=== PATIENT | female | born 1940 | race Caucasian/White ===

== ENCOUNTER 2023-12-01 06:34 | Day surgery (SDC) | payer OTHER, SELFPAY ==
[2023-12-01 10:50] VITALS: BP 151/78
[2023-12-01 11:21] VITALS: BMI 42.0
[2023-12-01 11:24] LABS: Glucose - Point of Care 100 mg/dl (70-99)
[2023-12-01 12:04] VITALS: BP 130/65
[2023-12-01 12:15] VITALS: BP 134/67
[2023-12-01 12:30] VITALS: BP 137/69
== END 2023-12-01 13:09 | disposition home or self-care (01) ==
LOC: GI 06:34
PROVIDERS: ATTENDING PHYSICIAN Internal Medicine Gastroenterology
DX: Q39.9 Congenital malformation of esophagus, unspecified (principal); K31.7 Polyp of stomach and duodenum; K31.89 Other diseases of stomach and duodenum; R12 Heartburn; R19.4 Change in bowel habit
CPT/HCPCS: 43239; 88305; 82962; 88342

== ENCOUNTER 2024-06-09 01:07 | Inpatient (IN) | payer OTHER, SELFPAY ==
[2024-06-08 15:33] VITALS: BP 118/82
[2024-06-08 16:06] LABS: % Basophils 0.3 % (0-2); % Eosinophils 3.8 % (0-6); % Immature Granulocytes 0.4 % (0-0.5); % Monocytes 9.5 % (1.7-9.3); Absolute Eosinophils 0.4 10^3/uL (0-0.7); Absolute Lymphocytes 2.3 10^3/uL (1.2-3.4); Absolute Neutrophils 6.3 10^3/uL (1.4-6.5); Hematocrit 32.8 % (37.0-47.0); Hemoglobin 10.6 g/dL (12.0-16.0); Mean Corp Hgb Conc. 32.3 g/dL (33.0-37.0); Mean Corpuscular Volume 89.6 fL (81.0-99.0); Mean Platelet Volume 9.7 fL (7.4-10.4); Nucleated Red Blood Cells % 0 %; Platelet Count 246 10^3/uL (130-400); Red Blood Cell Count 3.66 10^6/uL (4.20-5.40); Red Cell Dist. Width 15.4 % (11.5-14.5)
[2024-06-08 16:18] LABS: ALT (SGPT) 24 U/L (0-35); AST (SGOT) 28 U/L (14-36); Albumin 3.1 g/dl (3.5-5.0); Alkaline Phosphatase 108 U/L (38-126); Blood Urea Nitrogen 14 mg/dl (7-17); Calcium 9.6 mg/dl (8.4-10.2); Carbon Dioxide 30 mmol/L (22-30); Chloride 97 mmol/L (98-107); Glucose 110 mg/dl (70-99); Potassium 4.4 mmol/L (3.5-5.1); Sodium 132 mmol/L (135-145); Total Bilirubin 0.6 mg/dl (0.2-1.3); Total Protein 5.7 g/dl (6.3-8.2); eGFR > 60.00
[2024-06-08 16:26] LABS: COVID-19 Antigen Negative (Negative)
[2024-06-08 19:58] VITALS: BMI 43.2
[2024-06-08 20:01] VITALS: BP 120/69
[2024-06-08 21:00] VITALS: BP 103/44
--- NOTE | 2024-06-08 21:24 | ED.GENMED ---
History of Present Illness
General
Chief Complaint: Breathing Problem
Source: patient
Exam Limitations: none
Time Seen by Provider: 06/08/24 19:55
History of Present Illness
History of Present Illness:
This is a 84 year old female that comes in with c/o feeling like her throat is closing and SOB. States that this started 5 days ago. Sates that she went to see the PCP and he sent her to the ER. States that when she goes to sit up or move from the
chair to the Bed she is SOB. States that she is SOB, has a headache, feels lightheaded and has urinary burning. Denies any fever, chills, chest pain, abd pain, nausea, vomiting, diarrhea.
Past History
Past History
ED Past Medical History: Asthma, Fibromyalgia, GERD, HTN, Hypercholesterolemia, IDDM, Other (Migraines, Dizziness, Numbness in arms and legs, TIA, PNA, Bowel obstruction, GI bleeding, Hiatal hernia, IBS, Intussuseption, Ovarian cyst, Renal calculus,
UTI, ) and Other (Diverticulitis, SBO, Vertebral Fx. Stenosis, Chronic back pain, dizziness, diabetic neuropathy, edema, productive cough, constipation, diarrhea, irritable bowel, intussusception, ovarian cysts, kidney stones, stress incontinence,
anxiety, depression)
ED Past Surgical History: Appendectomy, Bowel resection (Small bowel resection), Cholecystectomy, Gynecological (Hysterectomy), Orthopedic (Back surgery lumbar spine in November 2009, Right elbow surgery, ORIF right ankle), Urological (Right ureteral
stent, ) and Other ( Parathyroid surgery, Cataracts, Adhesion)
Social History
Tobacco: Non-smoker
Alcohol: None
Drug: None
Personal:
Living: with family
Employment: Retired
Family History
Family History: Hypertension
Review of Systems
Review of Systems
All Other Systems: ROS reviewed and negative except as documented in HPI and ROS
Constitutional: Reports no symptoms; Denies fever or chills
EENT: Reports no symptoms
Respiratory: Reports cough and trouble breathing
Cardiac: Denies chest pain
ABD/GI: Denies abdominal pain, nausea, vomiting or diarrhea
: Reports dysuria; Denies frequency or urgency
Musculoskeletal: Reports no symptoms
Skin: Reports no symptoms
Neurological: Reports headache and other (Lightheaded); Denies dizzy
Psychiatric: Reports no symptoms
Phy Exam
General Physical Exam
General Presentation: no apparent distress
General age: appears stated age
General Skin: warm and dry
General Habitus: elderly
General Mental: alert
General Hydration: dry mucous membranes
ENT Exam
ENT Exam: TM's normal, pharynx normal and neck supple
Eye Exam
Eye Exam: EOMI
Cardiovascular Exam
Cardiovascular Exam: regular rate/rhythm and normal peripheral pulses
Pulmonary Exam
Pulmonary Exam: no respiratory distress, no rales, chest non tender, no crackles, no rhonchi, no wheezing, decreased breath sounds and other (Dry cough noted)
Gastrointestinal Exam
Gastrointestinal Exam: normal bowel sounds, non tender, soft, no organomegaly, no pulsatile mass and non distended
Musculoskeletal Exam
Musculoskeletal Exam: full ROM and edema (Lower legs +2 pitting)
Skin Exam
Skin Exam: normal color, warm/dry, no rash and no petechia
Psychiatric Exam
Psychiatric Exam: normal mood/affect
Scores
Heart Failure Risk
Heart Failure Risk Score: Not Applicable
Course
Orders/Labs/Results
Orders:
Orders
06/08/24 15:37
CR Chest - 2 Views Urgent
Comment:
Reason For Exam: shortness of breath, cough
06/08/24 15:39
ECG [Electrocardiogram (*1)] Urgent
Reason for Study: Shortness of Breath
EKG- Treatment ONCE
06/08/24 15:48
COVID-19 Antigen Urgent
Source: Nasal Swab
Complete Blood Count/With Diff Urgent
Comprehensive Metabolic Panel Urgent
Influenza A+B Rapid Molecular Urgent
MARIO Source: Nasal Swab
Specimen Description:
06/08/24 21:24
Ipratropium/Albuterol Sulfate [Duoneb] 3 ml INH R NOW ONE
06/08/24 22:43
0.9% Sodium Chloride 500 ml [Nss] 500 ml IV BOLUS
06/08/24 23:20
Straight cath- Treatment ONCE
Urinalysis Reflex To Culture Urgent
Date Specimen was Collected: 06/09/24
Time Specimen was Collected: 00:43
06/08/24 23:26
Add On- LAB Urgent
Tests Added?: Pro-BNP
06/08/24 23:58
NT-proBNP Urgent
Comment: ADDED
Troponin I Urgent
06/09/24 00:26
Admit/Transfer Patient As Directed
Co-Sign Provider:
Level of Care: Inpatient admission
Assign to:: Telemetry
Physician / Group: Vinicius
Diagnosis: Acute TME
Reason for Telemetry: Arrhythmia
Date to Stop Telemetry: 06/12/24
Time to Stop Telemetry: 11:00
Reason for Hospitalization: Acute TME
Expected length of stay greater than two midnights?: Yes
ELOS- Estimated Length of Stay in days: 3
I certify the patient meets the requirements for IP care: Yes
PRN Pain Medication Management As Directed
May give lesser potent ordered pain med per pt: Yes
preference::
Protocol:: Medication orders for pain may be administered in a
manner that supports deferring to patient preference
when the pt is:
- Requesting an ordered lesser potent pain medication.
Least to most potent pain medications are defined
as: acetaminophen < NSAID < tramadol < opioids
(morphine, oxycodone, hydromorphone).
- Requesting a lesser dose of the same medication IF
ORDERED.
- Requesting a less intrusive route of administration
if both routes are prescribed by the provider (PO <
IV).
06/09/24 00:30
Code Status As Directed
Resuscitation Status: Full Code
06/09/24 01:38
Acetaminophen [Tylenol] 650 mg PO Q4HPRN PRN
Albuterol Nebs [Ventolin Nebules] 2.5 mg INH R Q4HPRN PRN
Dextrose 50%-Water [Dextrose 50% Syringe] 12.5 grams IV [id number] PRN
Glucagon [GlucaGen] 1 mg IM PRN PRN
06/09/24 01:38
Echo 2D MMode Doppler [Echo 2D MMode Color/Doppler] Routine
Reason for Study: SOB, Edema
Consult Notification Routine
Specialty to Notify: Pulmonary
PULMONARY CONSULT Routine
Consulting Provider: Alexander Barlow
Was physician already notified: No
Reason for consult: SOB / COPD
B12 [Vitamin B12] Routine
TSH Reflex To Free T4 Routine
Activity As Directed
Activity Level: Ambulate
With Assistance
Bedside Glucose Monitoring As Directed
Frequency: AC&HS
Additional Instructions:: Change to q6h if pt on TPN, tube feeding or not eating
Bladder Scan As Directed
Follow Bladder Retention/Intermittent Cath Algorithm?: Yes
PRN if no void in __ hours: 6
Frequency: Per Retention Algorithm
If Bladder Scan Result >: 400
then:: Straight cath
EKG with chest pain [ECG as needed] As Directed
ECG as needed for:: Chest Pain
Hemetest Stools As Directed
I/O [Intake/ Output] As Directed
Frequency: Per unit guidelines
Precautions As Directed
Type of Precautions: Aspiration
Straight Cath As Directed
Frequency: Per Retention Algorithm
Additional Instructions: straight cath as needed per acute urinary retention algorithm for 24 hrs
Additional Instructions: for bladder scan greater than 400 mL
Vital Signs As Directed
Frequency: Per unit guidelines
Weight As Directed
Frequency: Daily
Incentive Spirometry [Rx Incentive Spirometry] [RESP] Routine
Frequency: q1h while awake
Oxygen Therapy [O2 Therapy] [RESP] Routine
Titrate/Wean O2 to maintain O2 sat greater than (%): 94
Ot Eval And Treat Routine
PT Consult [Pt Eval And Treat] Routine
Activity Level: Ambulate
With Assistance
Speech Therapy Eval & Treat Routine
06/09/24 03:14
Benzonatate [Tessalon Perles] 200 mg PO TID PRN
06/09/24 Breakfast
2000 calorie (17 carb) Diabetic
At Your Request: Limited Participation
Does patient need a safe tray?: No
Basic Metabolic Panel IN AM
Complete Blood Count/No Diff IN AM
Glycohemoglobin (HgbA1c) IN AM
06/09/24 07:30
Insulin Aspart Corrective Low [Novolog Flexpen-Low Resistance] See Protocol SC AC
06/09/24 08:00
Apixaban [Eliquis] 5 mg PO BID
Atorvastatin [Lipitor] 10 mg PO DAILY
Duloxetine Delayed Release [Cymbalta Delayed Release] 60 mg PO BID
Ipratropium/Albuterol Sulfate [Duoneb] 3 ml INH R QID
Metoprolol Xl [Toprol Xl] 25 mg PO DAILY
Pantoprazole [Protonix] 40 mg PO DAILY
Vit C/Vit E/L[place]in/Min/[place]-3 [Ocuvite Softgel] 1 cap PO BID
06/09/24 22:00
Famotidine [Pepcid] 40 mg PO HS
06/12/24 11:00
DC Protocol for Telemetry ONCE
Abnormal Lab Results
06/08/24
15:48
RBC 3.66 L 10^6/uL
(4.20-5.40)
Hgb 10.6 L g/dL
(12.0-16.0)
Hct 32.8 L %
(37.0-47.0)
MCHC 32.3 L g/dL
(33.0-37.0)
RDW 15.4 H %
(11.5-14.5)
Absolute Monos (auto) 1.0 H 10^3/uL
(0.1-0.6)
Monocytes % 9.5 H %
(1.7-9.3)
Sodium 132 L mmol/L
(135-145)
Chloride 97 L mmol/L
(98-107)
Glucose 110 H mg/dl
(70-99)
Total Protein 5.7 L g/dl
(6.3-8.2)
Albumin 3.1 L g/dl
(3.5-5.0)
06/08/24 15:48
06/08/24 15:48
H/H slightly, Glucose nonfasting. Total protein low, Albumin slightly low. COVID and Influenza negative. Urine negative for infection.
Vital Signs
Initial and Last Documented VS:
Initial Vital Signs
Pulse Resp BP Pulse Ox
111 20 118/82 94
06/08/24 15:33 06/08/24 15:33 06/08/24 15:33 06/08/24 15:33
Last Documented Vital Signs
Temp Pulse Resp BP Pulse Ox
98.2 F 103 20 131/99 97
06/09/24 02:13 06/09/24 02:13 06/09/24 02:13 06/09/24 02:13 06/09/24 02:13
MDM/Problems Addressed
Differential Diagnosis Includes:
PE, PNA, COVID
MDM/Problems Addressed:
This is a 84 year old female that comes in with c/o SOB. States that this started 5 days ago and know she is very SOB with going form the chair to bed.
Will get labs and Chest x-ray. If negative will get CT scan.
Unable to get CT scan as patient is allergic to IV contrast. Patient states that the Duo neb did not help. Will admit patient. Hospitalist notified.
Chronic conditions affecting care: Asthma
Acute Exacerbation and/or Progression of Chronic Illness: Asthma
*Radiology
Radiology exam reviewed: radiology read reviewed (Chest- There is mild elevation of the left hemidiaphragm with left greater than right bibasilar opacities fovored to represent chronic atelectasis/scarring. )
*Pulse Oximetry
Patient hypoxic: no
*EKG
Interpreted by ED Provider?: Yes
Heart Rate: 104
Rate: tachycardiac
Rhythm: sinus
[place]: left axis deviation
Interval: normal interval
QRS Pattern: normal QRS
Ischemia: no ischemia
*Institutional Commodity Analyst Interpretation
Rate: normal
Heart Rate: 97
Rhythm: sinus
*Critical Care Note
Total Time (30-74mins, 75-104mins- exclusive of procedures): Not Applicable
ED Attending Note
-
Portions of this chart may have been created with voice recognition software.� Occasional wrong word or��sound alike� substitutions may have occurred due to the inherent limitations of voice recognition software.
Discharge Plan
Departure
Patient Disposition: Admit
Date of Disposition: 06/08/24
Time of Disposition: 23:25
Admit to: Telemetry
Presentation/result/management discussed w/ accepting MD/DO: Hospitalist
Patient with high blood pressure during this ER visit?: No
Condition: Good
Covid-19: Negative COVID-19
Discharge Problem:
Shortness of breath
Interventions
Interventions:
*Risk Screen - Suicide Last Done: 06/08/24 15:37
*General Assessment Last Done: 06/08/24 19:59
*Neglect/Abuse Screening Last Done: 06/08/24 19:59
*ED COVID-19 Vaccine History Last Done: 06/08/24 19:59
*Nursing Disposition Last Done: 06/09/24 01:21
ED- Cardiac Assessment Last Done: 06/08/24 20:15
ED- Pulmonary Assessment Last Done: 06/08/24 20:15
Discharge Date and Time
Discharge Date/Time: 06/09/24 01:21
[2024-06-08] MEDS: DUONEB 3 ML INH (21:49)
[2024-06-08 22:00] VITALS: BP 123/62
[2024-06-08] MEDS: NSS 500 IV (23:00)
[2024-06-08 23:19] VITALS: BP 115/53
[2024-06-09] VITALS (12 sets, daily range): BP systolic 100–159; BP diastolic 57–99; PULSE 105–106; O2SAT 94–97; BMI 43.1; BMI 43.4
--- NOTE | 2024-06-09 00:32 | HPS.HSE ---
Family Physician
-
Family Physician: Akshat Schaefer, DO
Chief Complaint
-
Cough / SOB
History of Present Illness
Patient is an 84y F with PMH significant for COPD, chronic hypoxemia, DM-II, fibromyalgia and anxiety / depression who presents to ED for evaluation of cough, SOB and fatigue. History obtained from patient and her family at the bedside. Patient
was recently hospitalized at [facility] s/p fall. She was treated during that stay for LLE cellulitis, MANSOOR, etc and ultimately discharged to SNF. While at SNF, patient developed cough and SOB and was diagnosed / treated for pneumonia. She was discharged
to home on Tuesday. Since that time family has appreciated ongoing, hacking, non-productive cough. Patient has seemed weak / fatigued. She has difficulty with transfers - even with assistance. She uses a Hover-round for locomotion.
Last PM, daughter stayed with her parents and noted that the patient seemed to 'gasp for air' in her sleep repeatedly. She wears O2 chronically at 2lpm at all times. She does not use PAP therapy and notes that she had a normal PSG - though
this was some time ago.
She has had recent medication changes during her hospital and subsequent SNF stay - though family is not certain which meds specifically are new / different.
Today they took patient to see her PCP who advised that she present to the ED for evaluation.
At the time of my examination, patient is asleep. She is somewhat difficult to awaken - though she does answer questions and follow commands when she is awake.
Medical History
Past Medical History
Past Medical History: Reports Other
Additional Past Medical History:
DM-II
Fibromyalgia
GERD / PUD
Asthma / COPD
Chronic Hypoxemic Respiratory Failure
Hyperparathyroidism
Osteoporosis
Hypertension
OAB / Incontinence
Anxiety / Depression
History of PE
Morbid Obesity
Paroxysmal A-Fib
Past Surgical History: Reports Other
Additional Past Surgical History:
Hiatal Hernia repair / Fundoplication
Partial Small Bowel Resection
Cholecystectomy
Hysterectomy
Left Knee Arthroscopy
Bladder Lift
Interstim Implant
Social History
Tobacco: Non-smoker
Alcohol: None
Drug: None
Personal:
Living: With Family
Family History
Family History: Not pertinent
Allergies / Home Medications
Allergies reflects when Allergies were last updated in [email or web address].
Home Medications with original date entered in [email or web address]
Allergy/Medication List:
Allergies
Allergy/AdvReac Type Severity Reaction Status Date / Time
amoxicillin trihydrate Allergy Nausea / Verified 06/08/24 15:35
[From Augmentin] Vomiting
clarithromycin [From Biaxin] Allergy Nausea / Verified 06/08/24 15:35
Vomiting
clindamycin Allergy Nausea / Verified 06/08/24 15:35
Vomiting
diazepam Allergy HEADACHE Verified 06/08/24 15:35
fentanyl Allergy hallucinati Verified 06/08/24 15:35
on
hydromorphone HCl Allergy Itching Verified 06/08/24 15:35
[From Dilaudid]
Iodinated Contrast Media Allergy Tongue Verified 06/08/24 15:35
[IV Dye, Iodine Containing Swelling
Contrast ]
iodine [Iodine] Allergy Itchy Rash Verified 06/08/24 15:35
levofloxacin [From Levaquin] Allergy REDNESS Verified 06/08/24 15:35
AND
ITCHING AT
IV SITE
methylprednisolone Allergy HEADACHE Verified 06/08/24 15:35
[From Medrol]
morphine [Morphine] Allergy SEVERE Verified 06/08/24 15:35
ITCH,RED
RASH
potassium clavulanate Allergy Nausea / Verified 06/08/24 15:35
[From Augmentin] Vomiting
STEROIDS Allergy MIGRAINES Uncoded 06/08/24 15:35
Home Medications
jcjvl-[id number]-vcv-epa-fish oil 120 mg-180 mg-60 mg-1,200 mg capsule, DR (Fish Oil) 1,200 mg PO DAILY Supplement 07/07/15
pantoprazole 40 mg tablet,delayed release 40 mg PO DAILY gastric erosions 05/28/18
vitamins A,C,F-lilb-wsqtlf 4,296 mcg-226 mg-90 mg capsule (PreserVision AREDS) 1 cap PO BID Supplement 05/28/18
atorvastatin 10 mg tablet 10 mg PO DAILY High cholesterol 05/08/21
dicyclomine 10 mg capsule 10 mg PO BIDPRN PRN cramping 05/08/21
duloxetine 60 mg capsule,delayed release 60 mg PO BID DEPRESSION/PAIN 05/08/21
insulin aspart U-100 100 unit/mL (3 mL) subcutaneous pen (Novolog FlexPen U-100 Insulin aspart) 8 units SC AC Diabetes 05/08/21
albuterol sulfate 90 mcg/actuation aerosol inhaler (Ventolin HFA) 2 puff inhalation R Q6HPRN PRN SOB 08/12/22
montelukast 10 mg tablet 10 mg PO HS 08/12/22
nortriptyline 50 mg capsule 50 mg PO HS 08/12/22
benzonatate 200 mg capsule 200 mg PO TID 08/16/22
cholecalciferol (vitamin D3) 50 mcg (2,000 unit) tablet (Vitamin D3) 50 mcg PO DAILY 05/10/23
docusate sodium 100 mg capsule (Colace) 100 mg PO NOON 05/10/23
insulin degludec 100 unit/mL (3 mL) subcutaneous pen (Tresiba FlexTouch U-100 insulin) 15 unit SC HS 05/10/23
ramelteon 8 mg tablet 8 mg PO HS 05/10/23
apixaban 5 mg tablet (Eliquis) 5 mg PO BID 06/08/24
calcium carbonate (Calcium 600) 600 mg PO BID 06/08/24
famotidine 40 mg tablet 40 mg PO HS 06/08/24
fluticasone furoate 200 mcg/actuation blister powder for inhalation (Arnuity Ellipta) 1 inh inhalation R HS 06/08/24
fluticasone propionate 50 mcg/actuation nasal spray,suspension 1 spray intranasal HS 06/08/24
ipratropium 0.5 mg-albuterol 3 mg (2.5 mg base)/3 mL nebulization soln 3 ml inhalation R TIDPRN PRN sob 06/08/24
lidocaine 4 % topical cream 1 applic topical BID R knee 06/08/24
losartan 25 mg tablet 25 mg PO DAILY 06/08/24
metoprolol succinate 25 mg tablet,extended release 24 hr 25 mg PO DAILY 06/08/24
nystatin 100,000 unit/gram topical powder 1 applic topical BID abd folds, groin, chest 06/08/24
polyethylene glycol 3350 17 gram oral powder packet (Miralax) 17 g PO DAILYPRN PRN constipation 06/08/24
psyllium 1 packet PO DAILY 06/08/24
Review of Systems
-
History Source: Patient
A 12 point ROS was completed and negative except as noted: Yes
Constitutional: Reports Fatigue; Denies Fever or Chills
EENT: Denies Sore Throat or Runny Nose
Respiratory: Reports Cough and Trouble Breathing
Cardiac: Denies Chest Pain or Palpitations
Abdomen/GI: Denies Abdominal Pain, Nausea, Vomiting, Diarrhea or Constipated
: Reports Dysuria and Incontinence; Denies Frequency
Musculoskeletal: Reports Edema; Denies Joint Pain
Neurological: Denies Dizzy or Headache
Psych: Denies Depression or Anxiety
Physical Exam
Vital Signs
Vital Signs
Temp Pulse Resp BP Pulse Ox
98.6 F 99 19 115/53 100
06/08/24 20:01 06/08/24 23:19 06/08/24 23:19 06/08/24 23:19 06/08/24 23:19
Physical Exam
General: Other (84y F sleeping comfortably. Diffucult to awaken. Answers questions / follows commands when awake - falls quickly back to sleep.)
HEENT: Other (Thick neck, dry MM.)
Respiratory: Other (Diminished breath sounds throughout. No wheeze / rhonchi.)
Cardiac: S1/S2 and Regular Rhythm; No Murmur
GI: Soft, Non Tender, Non Distended and Normal Bowel Sounds
Musculoskeletal: No Clubbing, No Cyanosis and Other (2-3+ pitting edema to the knees bilaterally. )
Neuro: Other (Lethargic.)
Laboratory Results
-
06/08/24 15:48
06/08/24 15:48
Laboratory Results
Total Bilirubin 0.6 mg/dl (0.2-1.3) 06/08/24 15:48
AST 28 U/L (14-36) 06/08/24 15:48
ALT 24 U/L (0-35) 06/08/24 15:48
Alkaline Phosphatase 108 U/L (38-126) 06/08/24 15:48
Impression/Plan
-
A/P: Patient is an 84y F with PMH significant for COPD, chronic hypoxemia and chronic pain syndrome / fibromyalgia who presents to ED for evaluation of cough, dyspnea and fatigue.
Acute TME
- Admit for further evaluation and treatment.
- Patient somnolent / encephalopathic in the ED.
- With recent respiratory complaints, will check blood gasses for evidence of CO2 retention.
- notes that she has had 'issues with this in the past' - though she is not maintained on PAP therapy at home.
- Follow-up ABG results and begin BiPAP if indicated.
- Hold sedating meds - of which she has several.
- Check TFTs.
- Follow for clinical improvement.
SOB
COPD without Acute Exacerbation
Morbid Obesity due to excess calories
- Unclear etiology of dyspnea.
- Suspect component of hypoventilation / obesity / sedentary status.
- Decreased BS / poor effort. No other abnormal lung sounds.
- CXR likely represents atelectasis, and no other findings to suspect pneumonia, etc.
- Encourage IS.
- Nebs, O2 +/- BiPAP as noted above.
- Check Echo given LE edema to rule out new component of CHF.
- Pulmonary evaluation - followed by Dr. Rodriguez as an outpatient.
DM-II
- Stable. Continue basal : bolus insulin regimen.
- Follow glucose and cover with SSI as needed.
- Update A1C.
Fibromyalgia
Chronic Pain Syndrome
Anxiety / Depression
- Hold sedating meds as noted above.
- Monitor for any new / worsening pain or other symptoms.
GERD / PUD
- Stable. Continue acid suppression therapy.
- Heme test stools with new anemia (see below).
Normocytic Anemia
- Hgb = 10.6 which is decreased 2g from prior baseline.
- No evident source of blood loss.
- Check stools, iron studies, etc.
- Follow H&H for changes.
Paroxysmal Atrial Fibrillation
- This is a new diagnosis from her recent [facility] admission.
- Monitor on telemetry.
- Continue metoprolol with holding parameters.
- Continue Eliquis for stroke risk reduction.
DVT Prophylaxis: On Eliquis
Code Status: Full
[2024-06-09 00:35] LABS: NT-proBNP 219 pg/ml; Troponin I 0.015 ng/ml
[2024-06-09 01:07] LABS: Urine Albumin Negative (Neg - Trace); Urine Bilirubin Negative (Negative); Urine Character Clear (Clear); Urine Color Yellow; Urine Glucose Negative (Negative); Urine Ketone Negative (Negative); Urine Leukocyte Negative (Negative); Urine Nitrite Negative (Negative); Urine Occult Blood Negative (Negative); Urine Specific Gravity 1.015 (<1.030); Urine Urobilinogen Negative (Neg - 1+)
[2024-06-09 01:50] LABS: Glucose - Point of Care 141 mg/dl (70-99)
--- NOTE | 2024-06-09 02:44 | PTCARENOTE ---
Receive pt from ER. Pt alert oriented X2 (confused to month/year). Pt doesn't appear on any resp distress. Pt pulled over to bed from the stretcher. Pt oriented to the room, call montemayor within reach. Pt on NSR on telemonitor. VSS (T=98.2, PG=715,
RR=20, OH=692/99, SpO2=97% on 2L NC). Pt's blood hmbww=937. Pt denies pain, SOB, or chest pain. Pt drowsy, sleepy, but arousal to verbal stimuli and answers questions appropriately. Will continue to monitor the pt.
[2024-06-09 07:16] LABS: Venous Blood Gas B.E. 6.1 mmol/L (-4 to +4); Venous Blood Gas HCO3 32.8 mmol/L (22-27); Venous Blood Gas O2 Sat % 97.1 %; Venous Blood Gas pCO2 58 mmHg (35-48); Venous Blood Gas pH 7.36 (7.32-7.43); Venous Blood Gas pO2 107 mmHg (30-50)
[2024-06-09 07:25] LABS: Hematocrit 29.9 % (37.0-47.0); Hemoglobin 9.4 g/dL (12.0-16.0); Mean Corp Hgb Conc. 31.4 g/dL (33.0-37.0); Mean Corpuscular Hgb 28.4 pg (27.0-31.0); Mean Corpuscular Volume 90.3 fL (81.0-99.0); Platelet Count 222 10^3/uL (130-400); Red Blood Cell Count 3.31 10^6/uL (4.20-5.40); Red Cell Dist. Width 15.9 % (11.5-14.5)
[2024-06-09 07:50] LABS: Blood Urea Nitrogen 14 mg/dl (7-17); Carbon Dioxide 31 mmol/L (22-30); Chloride 98 mmol/L (98-107); Estimated Creatinine Clearance 77 ml/min; Glucose 118 mg/dl (70-99); Iron 49 ug/dl (37-170); Potassium 4.1 mmol/L (3.5-5.1); Sodium 136 mmol/L (135-145); eGFR > 60.00
[2024-06-09] MEDS: FLOVENT 110 MCG INHALER 2 PUFF INH ×2 (07:56→21:07)
[2024-06-09] MEDS: DUONEB 3 ML INH ×4 (07:56→21:12)
[2024-06-09 07:59] LABS: Percent Saturation 24 % (20-50); Total Iron Binding Capacity 200 ug/dl (265-497)
[2024-06-09 08:14] LABS: TSH Reflex To Free T4 1.26 uIU/ml (0.47-4.68)
[2024-06-09 08:25] LABS: Glucose - Point of Care 202 mg/dl (70-99)
[2024-06-09 08:33] LABS: Vitamin B12 902 pg/ml (239-931)
[2024-06-09 09:06] LABS: Glycohemoglobin (HgbA1c) 7.1 % (4.0-5.6)
[2024-06-09] MEDS: LIPITOR 10 MG PO (09:50)
[2024-06-09] MEDS: TOPROL XL 25 MG PO (09:50)
[2024-06-09] MEDS: ELIQUIS 5 MG PO ×2 (09:50→21:01)
[2024-06-09] MEDS: OCUVITE SOFTGEL 1 CAP PO ×2 (09:50→21:01)
[2024-06-09] MEDS: PROTONIX 40 MG PO (09:50)
[2024-06-09] MEDS: CYMBALTA DELAYED RELEASE 60 MG PO ×2 (09:50→21:00)
[2024-06-09] MEDS: NOVOLOG FLEXPEN-LOW RESISTANCE 2 UNITS SC (10:37)
--- NOTE | 2024-06-09 12:22 | PTOTSP ---
Speech Therapy Evaluation:
Pt's oropharyngeal swallow appears grossly WFL, however pt remains at an increased risk of aspiration given predisposing risk factors of asthma/COPD and chronic hypoxemic respiratory failure, compounded by current respiratory status with increased
cough/congestion. No s/sx of aspiration noted at bedside with regular solids or thin liquids. Pt also remains at an increased risk of post-prandial aspiration given esophageal hx of GERD and hiatal hernia.
Recommend:
1. Continue regular solids/thin liquids
2. Medications as tolerated
3. General aspiration /reflux precautions
4. Oral care 3x/daily
5. ST to follow- likely brief
[2024-06-09 12:46] LABS: Glucose - Point of Care 299 mg/dl (70-99)
--- NOTE | 2024-06-09 13:33 | W.PN.HOSP.TC ---
Today's Communication/Plan
-
see plan
Assessment / Plan
Assessment / Plan
84y F with PMH significant for COPD, chronic hypoxemia and chronic pain syndrome / fibromyalgia who presents to ED for evaluation of cough, dyspnea and fatigue.
Gen: NAD, awake and alert
Eyes: EOMI, PERRLA, no scleral icterus.
Neck: supple.
CV: RRR, +S1/S2, no m/r/g.
Resp: Very faint expiratory wheezes, slightly coarse breath sounds
Abd: +BS, soft, NT, ND
Skin: No rashes. 2+ B/L LE edema
Neuro: CN 2-12 intact, non-focal.
Psych: Normal mood and affect.
CXR: mild elevation of the left hemidiaphragm with left greater than right bibasilar opacities favored to represent chronic atelectasis/scarring.
Acute toxic metabolic encephalopathy:
-Patient was somnolent/encephalopathic in the ED.
-VBG 06/09/24AM 7.36/58/107
-hold all sedating meds
-currently saturating well on 2L NC O2
-TSH/B12 normals
SOB
-underlying COPD without Acute Exacerbation
-underlying morbid Obesity due to excess calories as well as sedentary lifestyle, very likely FAITH/OHS (suspect primary etiology)
-CXR without PNA
-Acapella, IS
-c/s pulm
-NC O2 support
-Check Echo given LE edema to rule out new component of CHF (unlikely with proBNP 219). Suspect edema is dependent and due to obesity.
Fibromyalgia
Chronic Pain Syndrome
Anxiety / Depression
- Hold sedating meds as noted above.
Normocytic Anemia
-Hb 9.4 from prior baseline 12s
-No evident source of blood loss
-Fe studies unremarkable aside from slightly low TIBC
-Hemetest stool
Other problems:
DM2: a1c 7.1%, cont Lantus/SSI/accuchecks
Paroxysmal Atrial Fibrillation: cont BB/Eliquis
GERD/PUD: cont PPI
FULL/Eliquis
Anticipated Discharge: 24 - 48 hours
Subjective/Interval History
-
Date of Service: June 09, 2024
Patient complains of cough.
Objective Data
-
Labs:
Laboratory Results
06/09/24 06/09/24
00:25 06:56
WBC 7.0
Hgb 9.4 L
Hct 29.9 L
Plt Count 222
HCO3 Cancelled
Sodium 136
Potassium 4.1
Chloride 98
Carbon Dioxide 31 H
BUN 14
Creatinine 0.6
Glucose 118 H
Calcium 9.0
Vital Signs:
Vital Signs
Temp Pulse Resp BP Pulse Ox
98.1 F 101 18 146/70 100
06/09/24 12:12 06/09/24 12:16 06/09/24 12:16 06/09/24 12:12 06/09/24 12:16
[2024-06-09] MEDS: TESSALON PERLES 200 MG PO (13:56)
[2024-06-09] MEDS: TYLENOL 650 MG PO ×2 (13:56→22:45)
[2024-06-09] MEDS: NOVOLOG FLEXPEN-LOW RESISTANCE 3 UNITS SC (13:58)
--- NOTE | 2024-06-09 14:39 | CM ---
CM following re: discharge planning.
Reviewed pt's chart, met with pt.
Pt is an 84 year old female admitted with primary dx of Acute TME.
Pt reports she lives alone in an independent apartment at [facility], has home O2, does not use any mobile devices. Pt reports she was at [facility] for a short term rehab, 2 weeks ago returned back home, did not have VN services. Pt
expressed her desire to return back to her independent apartment at [facility].
PT and OT will evaluate the pt to determine a level of care at discharge
PCP: Akshat Schaefer
Pharmacy: [facility] [place]
D/c plan: home with most likely VN services if recommended by PT.
CM will follow with discharge plan updates as hospitalization progresses
--- NOTE | 2024-06-09 17:10 | CON.PUL ---
Consultation
Consultation Request
Date/Time Consultation Requested: 06/09
Date/Time Consultation Performed: 06/09
Reason for Consultation: Shortness of breath
Medical History
-
History of Present Illness:
History obtained from the patient, outpatient and inpatient/hospital records. Patient is an 83-year-old female with history of CPAP therapy intolerant, on nocturnal oxygen, chronic recurrent bronchitis, TIA, aspiration syndrome, history of PE December
2022, who presents with 5 days of increased shortness of breath and throat closing. She was to go to go to the ED by her primary physician. Apparently she was recently hospitalized at [facility] for a fall. She was treated with antibiotics for lower
extremity cellulitis and renal insufficiency. She was discharged to [facility] facility. She gets short of breath with simple ambulation from the chair to the bed. She also describes lightheadedness. She denies any fevers, chills, sweats,
falls, syncope. Upon arrival to [facility], pulse 111, breathing at 20, blood pressure 118/82, 94%, afebrile. Unable to get CT angiogram to rule out PE. EKG suggest tachycardia. We are asked to comment on pulmonary process
.
PMH: Hypertension, hyperlipidemia, chronic bronchitis, sleep apnea intolerant to CPAP on nocturnal oxygen, asthma, Hummel's esophagitis with GERD with history of Sandy fundoplication, peptic ulcer disease, tracheomalacia, fibromyalgia, TIA/stroke,
osteoporosis, dysphagia with aspiration syndrome, pulmonary embolism December 2022, diabetes complicated by neuropathy, multiple epidurals, back surgery in the past, hernia repair, abdominal small bowel tumor removed , appendectomy,
cholecystectomy, hysterectomy, fundoplication, bilateral ankle fracture large 2022
Past Medical History
Past Medical History: None (See above)
Past Surgical History: None (See above)
Social History
Tobacco: Non-smoker
Alcohol: None
Drug: None
Personal:
Living: With Family
Employment: Retired
Family History
Family History: Other (Father from kidney cancer, mother from Parkinson's. 1 brother with pulmonary embolus. 6 children. Son has rectal cancer. There is a history of miscarriages)
Allergies / Home Medications
Allergies
Allergy/AdvReac Type Severity Reaction Status Date / Time
amoxicillin trihydrate Allergy Nausea / Verified 06/08/24 15:35
[From Augmentin] Vomiting
clarithromycin [From Biaxin] Allergy Nausea / Verified 06/08/24 15:35
Vomiting
clindamycin Allergy Nausea / Verified 06/08/24 15:35
Vomiting
diazepam Allergy HEADACHE Verified 06/08/24 15:35
fentanyl Allergy hallucinati Verified 06/08/24 15:35
on
hydromorphone HCl Allergy Itching Verified 06/08/24 15:35
[From Dilaudid]
Iodinated Contrast Media Allergy Tongue Verified 06/08/24 15:35
[IV Dye, Iodine Containing Swelling
Contrast ]
iodine [Iodine] Allergy Itchy Rash Verified 06/08/24 15:35
levofloxacin [From Levaquin] Allergy REDNESS Verified 06/08/24 15:35
AND
ITCHING AT
IV SITE
methylprednisolone Allergy HEADACHE Verified 06/08/24 15:35
[From Medrol]
morphine [Morphine] Allergy SEVERE Verified 06/08/24 15:35
ITCH,RED
RASH
potassium clavulanate Allergy Nausea / Verified 06/08/24 15:35
[From Augmentin] Vomiting
STEROIDS Allergy MIGRAINES Uncoded 06/08/24 15:35
Home Medications
�Medication �Instructions �Recorded �Confirmed �Last Taken �Type
[id number]-epa-fish oil 120 1,200 mg PO DAILY Supplement 07/07/15 06/08/24 11/30/23 History
mg-180 mg-60 mg-1,200 mg capsule,
DR (Fish Oil)
pantoprazole 40 mg tablet,delayed 40 mg PO DAILY gastric erosions 05/28/18 06/08/24 12/01/23 08:00 History
release
vitamins A,C,W-ggor-byolxj 4,296 1 cap PO BID Supplement 05/28/18 06/08/24 11/30/23 History
mcg-226 mg-90 mg capsule
(PreserVision AREDS)
atorvastatin 10 mg tablet 10 mg PO DAILY High cholesterol 05/08/21 06/08/24 11/30/23 History
dicyclomine 10 mg capsule 10 mg PO BIDPRN PRN cramping 05/08/21 06/08/24 11/28/23 History
duloxetine 60 mg capsule,delayed 60 mg PO BID DEPRESSION/PAIN 05/08/21 06/08/24 11/30/23 History
release
insulin aspart U-100 100 unit/mL 8 units SC AC Diabetes 05/08/21 06/08/24 11/30/23 History
(3 mL) subcutaneous pen (Novolog
FlexPen U-100 Insulin aspart)
albuterol sulfate 90 mcg/actuation 2 puff inhalation R Q6HPRN PRN SOB 08/12/22 06/08/24 11/29/23 History
aerosol inhaler (Ventolin HFA)
montelukast 10 mg tablet 10 mg PO HS 08/12/22 06/08/24 11/30/23 22:00 History
nortriptyline 50 mg capsule 50 mg PO HS 08/12/22 06/08/24 11/30/23 21:00 History
benzonatate 200 mg capsule 200 mg PO TID 08/16/22 06/08/24 11/30/23 History
cholecalciferol (vitamin D3) 50 50 mcg PO DAILY 05/10/23 06/08/24 11/30/23 History
mcg (2,000 unit) tablet (Vitamin
D3)
docusate sodium 100 mg capsule 100 mg PO NOON 05/10/23 06/08/24 11/30/23 History
(Colace)
insulin degludec 100 unit/mL (3 15 unit SC HS 05/10/23 06/08/24 11/30/23 21:00 History
mL) subcutaneous pen (Tresiba
FlexTouch U-100 insulin)
ramelteon 8 mg tablet 8 mg PO HS 05/10/23 06/08/24 11/30/23 21:00 History
apixaban 5 mg tablet (Eliquis) 5 mg PO BID 06/08/24 06/08/24 Unknown History
calcium carbonate (Calcium 600) 600 mg PO BID 06/08/24 06/08/24 Unknown History
famotidine 40 mg tablet 40 mg PO HS 06/08/24 06/08/24 Unknown History
fluticasone furoate 200 1 inh inhalation R HS 06/08/24 06/08/24 Unknown History
mcg/actuation blister powder for
inhalation (Arnuity Ellipta)
fluticasone propionate 50 1 spray intranasal HS 06/08/24 06/08/24 Unknown History
mcg/actuation nasal
spray,suspension
ipratropium 0.5 mg-albuterol 3 mg 3 ml inhalation R TIDPRN PRN sob 06/08/24 06/08/24 Unknown History
(2.5 mg base)/3 mL nebulization
soln
lidocaine 4 % topical cream 1 applic topical BID R knee 06/08/24 06/08/24 Unknown History
losartan 25 mg tablet 25 mg PO DAILY 06/08/24 06/08/24 Unknown History
metoprolol succinate 25 mg 25 mg PO DAILY 06/08/24 06/08/24 Unknown History
tablet,extended release 24 hr
nystatin 100,000 unit/gram topical 1 applic topical BID abd folds, 06/08/24 06/08/24 Unknown History
powder groin, chest
polyethylene glycol 3350 17 gram 17 g PO DAILYPRN PRN constipation 06/08/24 06/08/24 Unknown History
oral powder packet (Miralax)
psyllium 1 packet PO DAILY 06/08/24 06/08/24 Unknown History
Review of Systems
-
All other systems: Negative unless noted
Vitals / Labs / Diagnostic Testing
Vital Signs
Temp Pulse Resp BP Pulse Ox
98.2 F 74 18 159/80 97
06/09/24 15:54 06/09/24 15:54 06/09/24 15:54 06/09/24 15:54 06/09/24 15:54
Lab Data
06/09/24 06:56
06/09/24 06:56
Laboratory Results
06/09/24
00:25
pH Cancelled
pCO2 Cancelled
pO2 Cancelled
HCO3 Cancelled
O2 Delivery Level Cancelled
Microbiology
06/08/24 15:48 Nasal Swab Influenza Types A & B (EUGENIA) - Final
Negative for Influenza A & B, NAAT
Negative results must be combined with clinical observations
and patient history.
Nucleic Acid Amplification test (NAAT)performed on the
[employer] platform.
Diagnostic Testing:
Physical Exam
-
HEENT: Normocephalic, Anicteric and Other (Large neck)
Cardiovascular: S1/S2, Regular Rhythm, Murmur (n), Rub (n), Peripheral Edema (tr) and Other (Chronic lower extremity erythema, no warmth)
Respiratory: Wheeze (Upper airway), Rales (n), Rhonchi (few), Non-Labored Respirations and Other (No stridor)
GI: Soft, Non Distended (Obese) and Non Tender
Neurology: Awake, Alert and No Motor Deficits (Generally weak, cannot turn over without assistance)
Skin: Good Color and Other (Lower extremity erythema)
General: Comfortable
Assessment
-
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 We are
asked to comment on pulmonary process
Acute hypoxic respiratory insufficiency
On chronic home oxygen
URI symptoms, cough/wheeze
Subjective dyspnea, progressive
Fatigue, TME
History of asthma
History of tracheomalacia per records
Anemia
Elevated right hemidiaphragm, right perihilar process
Conditions present prior to admission
History of renal insufficiency
Diabetes
Fibromyalgia
GERD/PUD
Anemia
Paroxysmal atrial fibrillation
On anticoagulation
History of falls
Plan/recommendations
At this time, patient appears to be comfortable but has multiple chronic comorbidities.
Salient features include upper airway wheeze with history of tracheomalacia. Patient also with sleep apnea noncompliant with CPAP. She does use oxygen therapy at home
Patient does describe some vague right-sided chest discomfort
Moving forward
For now we will continue with supportive care.
We will add budesonide and DuoNebs [id number]
She was recommended to take maintenance inhaler therapy as outpatient but has been unable to afford
We will obtain CT chest without contrast. She has an elevated right hemidiaphragm, cannot rule out right perihilar process
Unable to get with contrast given allergy and it appears that she is off the Eliquis however she states she is taking it and this was confirmed with her
She is not getting her Eliquis at this time. We would resume this
Outpatient records suggest she was on anticoagulation for 6 months stopped in June 2023 per field rep (Jamila)
I would consider resuming this
VBG reviewed. Likely compensated mild hypercapnia
Discussed importance of pursed lip breathing
Unfortunately, without treatment of CPAP, she will continue to have chronic recurrent bronchitis symptoms.
We will follow
[2024-06-09 17:41] LABS: Glucose - Point of Care 153 mg/dl (70-99)
[2024-06-09] MEDS: NOVOLOG FLEXPEN-LOW RESISTANCE 1 UNITS SC (18:31)
[2024-06-09] MEDS: PEPCID 40 MG PO (21:01)
[2024-06-09] MEDS: PULMICORT 0.5 MG INH (21:08)
[2024-06-09 21:32] LABS: Glucose - Point of Care 201 mg/dl (70-99)
[2024-06-09] MEDS: LANTUS 0.1 UNITS SC (22:43)
[2024-06-10] MEDS: TESSALON PERLES 200 MG PO ×2 (00:15→17:55)
[2024-06-10] MEDS: VENTOLIN NEBULES 2.5 MG INH (00:56)
[2024-06-10] MEDS: MELATONIN 3 MG PO (01:28)
[2024-06-10 03:35] VITALS: BP 158/76
[2024-06-10 06:00] VITALS: BMI 43.0
[2024-06-10] MEDS: PULMICORT 0.5 MG INH ×2 (08:05→19:37)
[2024-06-10] MEDS: FLOVENT 110 MCG INHALER 2 PUFF INH ×2 (08:05→19:34)
[2024-06-10] MEDS: DUONEB 3 ML INH ×4 (08:05→19:34)
[2024-06-10 08:23] LABS: Glucose - Point of Care 135 mg/dl (70-99)
[2024-06-10 08:53] VITALS: BP 166/74
[2024-06-10] MEDS: NOVOLOG FLEXPEN-LOW RESISTANCE SC ×3 (10:02→17:53)
[2024-06-10] MEDS: OCUVITE SOFTGEL 1 CAP PO ×2 (10:03→21:08)
[2024-06-10] MEDS: ELIQUIS 5 MG PO ×2 (10:03→21:08)
[2024-06-10] MEDS: CYMBALTA DELAYED RELEASE 60 MG PO ×2 (10:03→21:07)
[2024-06-10] MEDS: LIPITOR 10 MG PO (10:04)
[2024-06-10] MEDS: PROTONIX 40 MG PO (10:04)
[2024-06-10] MEDS: TOPROL XL 25 MG PO (10:04)
[2024-06-10] MEDS: FLUSH (NSS) 1 FLUSH IV (10:05)
[2024-06-10] MEDS: TYLENOL 650 MG PO (10:10)
--- NOTE | 2024-06-10 10:54 | W.PN.HOSP.TC ---
Today's Communication/Plan
-
see bold
Assessment / Plan
Assessment / Plan
84y F with PMH significant for COPD, chronic hypoxemia and chronic pain syndrome / fibromyalgia who presents to ED for evaluation of cough, dyspnea and fatigue.
Gen: NAD, awake and alert
Eyes: EOMI, PERRLA, no scleral icterus.
Neck: supple.
CV: remains RRR, +S1/S2, no m/r/g.
Resp: CTAB anteriorly
Abd: remains +BS, soft, NT, ND
Skin: No rashes. 2+ B/L LE edema
Neuro: CN 2-12 intact, non-focal.
Psych: Normal mood and affect.
CXR: mild elevation of the left hemidiaphragm with left greater than right bibasilar opacities favored to represent chronic atelectasis/scarring.
Acute toxic metabolic encephalopathy:
-Patient was somnolent/encephalopathic in the ED
-VBG 06/09/24AM 7.36/58/107
-holding all sedating meds
-currently saturating well on 2L NC O2
-TSH/B12 normals
SOB:
-underlying COPD without Acute Exacerbation
-History of tracheomalacia
-underlying morbid Obesity due to excess calories as well as sedentary lifestyle, very likely FAITH/OHS (suspect primary etiology)
-CXR without PNA
-Acapella, IS
-pulm saw in c/s
-Pulmicort and DuoNebs ATC added
-check CT chest
-NC O2 support
-check nocturnal pulse ox
-Check Echo given LE edema to rule out new component of CHF (unlikely with proBNP 219). Suspect edema is dependent and due to obesity.
Fibromyalgia
Chronic Pain Syndrome
Anxiety/Depression
-Holding sedating meds as noted above
Normocytic Anemia
-Hb 9.4 from prior baseline 12s
-No evident source of blood loss
-Fe studies unremarkable aside from slightly low TIBC
-Hemetest stool
Other problems:
DM2: a1c 7.1%, cont Lantus/SSI/accuchecks
Paroxysmal Atrial Fibrillation: cont BB/Eliquis
GERD/PUD: cont PPI
FULL/Eliquis
Anticipated Discharge: 24 - 48 hours
Subjective/Interval History
-
Date of Service: June 10, 2024
Pt upset that her 'sleeping pills' have been held. Still with cough.
Objective Data
-
Vital Signs:
Vital Signs
Temp Pulse Resp BP Pulse Ox
97.9 F 96 18 166/74 96
06/10/24 08:53 06/10/24 10:04 06/10/24 08:53 06/10/24 10:04 06/10/24 08:53
[2024-06-10 11:39] LABS: Hemoglobin 10.5 g/dL (12.0-16.0); Mean Corp Hgb Conc. 32.8 g/dL (33.0-37.0); Mean Corpuscular Hgb 28.7 pg (27.0-31.0); Mean Corpuscular Volume 87.4 fL (81.0-99.0); Mean Platelet Volume 9.7 fL (7.4-10.4); Platelet Count 268 10^3/uL (130-400); Red Blood Cell Count 3.66 10^6/uL (4.20-5.40); Red Cell Dist. Width 15.7 % (11.5-14.5); White Blood Cell Count 9.1 10^3/uL (4.8-10.8)
[2024-06-10 11:46] LABS: Blood Urea Nitrogen 10 mg/dl (7-17); Calcium 8.8 mg/dl (8.4-10.2); Carbon Dioxide 31 mmol/L (22-30); Chloride 96 mmol/L (98-107); Estimated Creatinine Clearance 77 ml/min; Glucose 172 mg/dl (70-99); Potassium 4.1 mmol/L (3.5-5.1); Sodium 133 mmol/L (135-145); eGFR > 60.00
[2024-06-10 11:50] VITALS: BP 166/70
--- NOTE | 2024-06-10 13:08 | PTCARENOTE ---
attempted to complete med rec, call to patients since patient is forgetful. his said she wasn't sure what medications her is taking- when talking with patient he said he was 'tired of taking so many medications, so he stopped them
all but one. he said he discussed it with his doctor and said he would only take one pill and asked his doctor which pill was most important. Patient unable to tell me the name of the one pill he is taking. Dr Henderson aware of above.
[2024-06-10 13:29] LABS: Glucose - Point of Care 148 mg/dl (70-99)
--- NOTE | 2024-06-10 15:46 | W.PN.PUL3 ---
Today's Communication / Plan
-
Continue nebulized therapy. This should continue as outpatient
Remains on Eliquis twice daily
CT chest with chronic airways disease, no acute findings
PT/OT, out of bed to chair
Head of bed elevated
Assessment
-
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 We are
asked to comment on pulmonary process
Acute hypoxic respiratory insufficiency
On chronic home oxygen
URI symptoms, cough/wheeze
Subjective dyspnea, progressive
Fatigue, TME
History of asthma
History of tracheomalacia per records
Anemia
Elevated right hemidiaphragm, right perihilar process
Conditions present prior to admission
History of renal insufficiency
Diabetes
Fibromyalgia
GERD/PUD
Anemia
Paroxysmal atrial fibrillation
On anticoagulation
History of falls
Plan/recommendations
At this time, patient appears to be comfortable but has multiple chronic comorbidities.
Unfortunate I suspect her symptoms are multifactorial
Salient features include upper airway wheeze with history of tracheomalacia. Patient also with sleep apnea noncompliant with CPAP. She does use oxygen therapy at home
Patient does describe some vague right-sided chest discomfort
CT chest reviewed today reveals evidence of bronchial airway thickening, mild bronchiectasis and pleural thickening per my review
Moving forward
For now we will continue with supportive care.
Continue budesonide and DuoNebs [id number]
She is less wheezy today
She was recommended to take maintenance inhaler therapy as outpatient but has been unable to afford
Unable to get with contrast given allergy and it appears that she is off the Eliquis however she states she is taking it and this was confirmed with her
She is not getting her Eliquis at this time. We would resume this, she is receiving presently
Outpatient records suggest she was on anticoagulation for 6 months stopped in June 2023 per hobbing machine operator (Jamila)
VBG reviewed. Likely compensated mild hypercapnia
Discussed importance of pursed lip breathing
Unfortunately, without treatment of CPAP, she will continue to have chronic recurrent bronchitis symptoms.
Patient states she was told she does not have sleep apnea
This can be addressed again as outpatient as needed
Disposition efforts
Subjective Data
-
Date of Service:
Date of Service: June 10, 2024
Subjective:
Patient primary concern about getting her a sleep aid. She denies any change in shortness of breath, cough. She denies chest pain, nausea
Objective Data
Data Reviewed
Vital Signs / I&O / Oxygen:
Vital Signs
Temp Pulse Resp BP Pulse Ox
97.8 F 81 16 166/70 98
06/10/24 11:50 06/10/24 15:45 06/10/24 15:45 06/10/24 11:50 06/10/24 15:45
SaO2 98
Nasal Cannula flow liters per 2
minute
Physical Exam
General: Comfortable and Other (Large neck, narrow posterior oropharynx)
HEENT: Normocephalic and Anicteric
Cardiovascular: S1-S2, Regular Rhythm, Murmur (n) and Rub (n)
Respiratory: Wheeze (Mild expiratory), Crackles (Few at base), Rhonchi (n) and Non-Labored Respirations
GI: Soft, Non Distended (Morbidly obese) and Non Tender
Neurology: Awake, Alert and No Motor Deficits (Requires assistance to sit up)
Skin: Jaundice (n) and Rash (n)
Labs/Micro/Reports
Lab Data
06/10/24 11:11
06/10/24 11:11
Microbiology
06/08/24 15:48 Nasal Swab Influenza Types A & B (EUGENIA) - Final
Negative for Influenza A & B, NAAT
Negative results must be combined with clinical observations
and patient history.
Nucleic Acid Amplification test (NAAT)performed on the
[employer] platform.
[2024-06-10 17:08] VITALS: BP 162/68
[2024-06-10 17:40] LABS: Glucose - Point of Care 132 mg/dl (70-99)
[2024-06-10] MEDS: ZOFRAN 4 MG IV (17:54)
[2024-06-10] MEDS: FLUSH (NSS) 2 FLUSH IV (17:56)
[2024-06-10] MEDS: ROXICODONE 10 MG PO (17:56)
[2024-06-10 19:45] VITALS: BP 160/76
[2024-06-10] MEDS: PEPCID 40 MG PO (21:08)
[2024-06-10 21:12] LABS: Glucose - Point of Care 181 mg/dl (70-99)
[2024-06-10] MEDS: LANTUS 0.1 UNITS SC (21:18)
[2024-06-10 23:54] VITALS: BP 164/88
[2024-06-11 04:04] VITALS: BP 167/82
[2024-06-11 05:03] VITALS: BMI 42.4
--- NOTE | 2024-06-11 05:06 | RESPNOTE ---
ARRIVED IN PT ROOM AT 0357 TO CHECK THE STATUS OF THE NOCTURNAL PULSEOX. I ARRIVED TO FIND THE PATIENT OFF THE STUDY AND THE PULSEOX HANGING FROM THE MACHINE. NURSE STATES THE LAST TIME SHE SAW THE PATIENT WAS ABOUT 0100.
--- NOTE | 2024-06-11 06:55 | W.PN.UPDATE ---
Update Note
Progress Note Update
Cross Coverage Update (late entry date of service 06/10/24):
Contacted by nurse d/t patient complaint severe back pain with associate nausea.
Patient concerned withdrawing from opiates.
Review of PDMP notes previously prescribed 10 mg TID prn before on 05/28 for 10 days.
Once oxycodone 10 mg ordered along with prn 10 mg TID prn
zofran prn nausea ordered
[2024-06-11] MEDS: FLOVENT 110 MCG INHALER INH (08:02)
[2024-06-11] MEDS: PULMICORT INH (08:02)
[2024-06-11] MEDS: DUONEB INH (08:02)
[2024-06-11 08:22] VITALS: BP 166/94
--- NOTE | 2024-06-11 09:10 | W.PN.PUL3 ---
Today's Communication / Plan
-
Continue nebulized therapy. This should continue as outpatient
Remains on Eliquis twice daily
CT chest with chronic airways disease, no acute findings
Start prednisone taper for suspected acute asthmatic exacerbation
Start 3% nebulized NS with vest therapy to help with mucus expectoration
PT/OT, out of bed to chair
Head of bed elevation with aspiration precautions
Outpatient office follow-up recommended
Assessment
-
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 We are
asked to comment on pulmonary process
Impression:
Acute hypoxic respiratory insufficiency
On chronic home oxygen
URI symptoms, cough/wheeze
Subjective dyspnea, progressive
Fatigue, TME
History of asthma with acute exacerbation
History of tracheobronchomalacia per records (mentioned on CT chest from May 2018)
Anemia
Elevated right hemidiaphragm, right perihilar process
Conditions present prior to admission
History of renal insufficiency
Diabetes
Fibromyalgia
GERD/PUD
Anemia
Paroxysmal atrial fibrillation
On anticoagulation
History of falls
Plan/recommendations
At this time, patient appears to be comfortable but has multiple chronic comorbidities.
Unfortunate I suspect her symptoms are multifactorial
Salient features include upper airway wheeze with history of tracheomalacia. Patient also with sleep apnea noncompliant with CPAP. She does use oxygen therapy at home
Patient does describe some vague right-sided chest discomfort
CT chest reviewed from 06/10/2024 reveals evidence of bronchial airway thickening, mild bronchiectasis and pleural thickening per my review
Moving forward
For now we will continue with supportive care.
Continue budesonide and DuoNebs [id number]
She is not wheezing today, but still with shortness of breath and difficulty expectorating
She has taken prednisone before and says that she usually improves very well to this. I will start her on a prednisone taper as well as nebulized 3% NS with vest therapy
She was recommended to take maintenance inhaler therapy as outpatient but has been unable to afford
Unable to get with contrast given allergy and it appears that she is off the Eliquis however she states she is taking it and this was confirmed with her
Continue Eliquis (resumed on 06/09/2024)
Outpatient records suggest she was on anticoagulation for 6 months stopped in June 2023 per tortilla maker (Jamila)
VBG reviewed. Likely compensated mild hypercapnia
Discussed importance of pursed lip breathing
Unfortunately, without treatment of CPAP, she will continue to have chronic recurrent bronchitis symptoms.
Patient states she was told she does not have sleep apnea
This can be addressed again as outpatient as needed
Disposition efforts
Total time spent today was 38 minutes for this encounter. Time includes reviewing laboratory test/imaging results, reviewing pertinent medical records, obtaining and reviewing medical history, performing an appropriate exam, ordering medications,
tests and procedures. Time also includes documentation of this encounter, coordinating patient care and communicating with other healthcare professionals. Total time does not include separately billed tests performed on this date of service.
Subjective Data
-
Date of Service:
Date of Service: June 11, 2024
Chief Complaint: Pulmonary Follow Up
Subjective:
Patient seen and evaluated today at bedside. Having difficulty bringing up her phlegm with her cough. Her , Holger, at bedside and all questions were answered. Patient currently on 2L/min and breathing comfortably. She denies chest pain,
abdominal pain, nausea, vomiting, fevers or chills.
Review of Systems
General: Other (Negative unless mentioned above)
Objective Data
Data Reviewed
Vital Signs / I&O / Oxygen:
Vital Signs
Temp Pulse Resp BP Pulse Ox
98.8 F 100 20 166/94 98
06/11/24 08:22 06/11/24 08:22 06/11/24 08:22 06/11/24 09:28 06/11/24 08:22
SaO2 98
Nasal Cannula flow liters per 2
minute
Physical Exam
General: Comfortable and Other (Large neck, narrow posterior oropharynx)
HEENT: Normocephalic and Anicteric
Cardiovascular: S1-S2, Murmur (n), Rub (n) and Peripheral Edema (n)
Respiratory: Wheeze (negative), Crackles (Few at bases), Rhonchi (n) and Non-Labored Respirations
GI: Soft, Non Distended (Morbidly obese) and Non Tender
Neurology: Awake, Alert, No Motor Deficits (Requires assistance to sit up) and Tremors (negative)
Skin: Warm, Dry, Jaundice (n) and Rash (n)
Labs/Micro/Reports
Lab Data
06/11/24 09:41
Microbiology
06/11/24 03:44 Nasal Swab Respiratory Syncytial Virus Culture - Final
Negative for Respiratory Syncytial Virus.
A false negative result may be obtained with a specimen
collected early in the acute phase. If symptoms persist, a
new specimen should be tested.
06/08/24 15:48 Nasal Swab Influenza Types A & B (EUGENIA) - Final
Negative for Influenza A & B, NAAT
Negative results must be combined with clinical observations
and patient history.
Nucleic Acid Amplification test (NAAT)performed on the
[employer] platform.
--- NOTE | 2024-06-11 09:12 | CARDSERVLU ---
Echocardiogram with Lumason completed after protocol screening completed. Allergies verified.
Patent IV site: ___R hand__
IV site flushed with 0.9% NaCl pre and post administration.
Diluted bolus method utilized to enhance visualization of ventricular cunningham.
Total volume given: __4__ mL
Patient tolerated all procedures well without complications.
[2024-06-11 09:21] LABS: Glucose - Point of Care 120 mg/dl (70-99)
[2024-06-11] MEDS: NOVOLOG FLEXPEN-LOW RESISTANCE SC (09:24)
[2024-06-11] MEDS: LIPITOR 10 MG PO (09:27)
[2024-06-11] MEDS: TOPROL XL 25 MG PO (09:28)
[2024-06-11] MEDS: CYMBALTA DELAYED RELEASE 60 MG PO ×2 (09:28→22:10)
[2024-06-11] MEDS: PROTONIX 40 MG PO (09:28)
[2024-06-11] MEDS: OCUVITE SOFTGEL 1 CAP PO ×2 (09:28→22:10)
[2024-06-11] MEDS: ELIQUIS 5 MG PO ×2 (09:29→22:10)
[2024-06-11] MEDS: TYLENOL 650 MG PO (09:50)
[2024-06-11 10:00] LABS: Hematocrit 32.5 % (37.0-47.0); Hemoglobin 10.8 g/dL (12.0-16.0); Mean Corp Hgb Conc. 33.2 g/dL (33.0-37.0); Mean Corpuscular Hgb 29.2 pg (27.0-31.0); Mean Corpuscular Volume 87.8 fL (81.0-99.0); Mean Platelet Volume 9.7 fL (7.4-10.4); Platelet Count 276 10^3/uL (130-400); Red Cell Dist. Width 15.9 % (11.5-14.5); White Blood Cell Count 10.2 10^3/uL (4.8-10.8)
[2024-06-11 10:24] LABS: Blood Urea Nitrogen 6 mg/dl (7-17); Calcium 8.9 mg/dl (8.4-10.2); Carbon Dioxide 34 mmol/L (22-30); Chloride 94 mmol/L (98-107); Estimated Creatinine Clearance 76 ml/min; Glucose 123 mg/dl (70-99); Sodium 133 mmol/L (135-145); eGFR > 60.00
[2024-06-11] MEDS: DUONEB 3 ML INH ×3 (11:28→20:07)
[2024-06-11 11:51] VITALS: BP 177/97
[2024-06-11 12:19] LABS: Glucose - Point of Care 169 mg/dl (70-99)
--- NOTE | 2024-06-11 13:02 | W.PN.HOSP.TC ---
Addendum entered and electronically signed by Donovan Duffy MD 06/11/24 15:43:
Updated daughter over the phone
Original Note:
Today's Communication/Plan
-
Monitor vitals
See plan
Echo
Restart oxycodone however at 5 mg
pt/ot
Assessment / Plan
Assessment / Plan
84y F with PMH significant for COPD, chronic hypoxemia and chronic pain syndrome / fibromyalgia who presents to ED for evaluation of cough, dyspnea and fatigue.
Gen: NAD, awake and alert
Eyes: EOMI, PERRLA, no scleral icterus.
Neck: supple.
CV: remains RRR, +S1/S2, no m/r/g.
Resp: CTAB anteriorly
Abd: remains +BS, soft, NT, ND
Skin: No rashes. 2+ B/L LE edema
Neuro: CN 2-12 intact, non-focal.
Psych: Normal mood and affect.
CXR: mild elevation of the left hemidiaphragm with left greater than right bibasilar opacities favored to represent chronic atelectasis/scarring.
Acute toxic metabolic encephalopathy suspect likely secondary to TME from medications
-Patient was somnolent/encephalopathic in the ED
-VBG 06/09/24AM 7.36/58/107
-holding sedating meds
-currently saturating well on 2L NC O2
-TSH/B12 normals
SOB:
Chronic hypoxic respiratory failure, on 2 L nasal cannula
-underlying asthma without Acute Exacerbation
-History of tracheomalacia
-underlying morbid Obesity due to excess calories as well as sedentary lifestyle, very likely FAITH/OHS (suspect primary etiology)
-CXR without PNA
-Acapella, IS
-pulm saw in c/s
-Pulmicort and DuoNebs ATC added
CT chest showed bibasilar atelectasis/scarring. Chronic compression deformity of T7 and T10.
-NC O2 support
-check nocturnal pulse ox
-Check Echo given LE edema to rule out new component of CHF (unlikely with proBNP 219). Suspect edema is dependent and due to obesity.
Fibromyalgia
Chronic Pain Syndrome
Anxiety/Depression
-Holding sedating meds as noted above
Restart oxycodone however at 5 mg
Normocytic Anemia
-Hb 9.4 from prior baseline 12s
-No evident source of blood loss
-Fe studies unremarkable aside from slightly low TIBC
-Hemetest stool
Other problems:
DM2: a1c 7.1%, cont Lantus/SSI/accuchecks
Paroxysmal Atrial Fibrillation: cont BB/Eliquis
GERD/PUD: cont PPI
FULL/Eliquis
Anticipated Discharge: 24 - 48 hours
Subjective/Interval History
-
Date of Service: June 11, 2024
Has some pain this morning
Objective Data
-
Labs:
Laboratory Results
06/11/24
09:41
WBC 10.2
Hgb 10.8 L
Hct 32.5 L
Plt Count 276
Sodium 133 L
Potassium 4.0
Chloride 94 L
Carbon Dioxide 34 H
BUN 6 L
Creatinine 0.5 L
Glucose 123 H
Calcium 8.9
Vital Signs:
Vital Signs
Temp Pulse Resp BP Pulse Ox
98.2 F 92 20 177/97 98
06/11/24 11:51 06/11/24 11:51 06/11/24 11:51 06/11/24 11:51 06/11/24 11:51
[2024-06-11] MEDS: ROXICODONE 5 MG PO ×2 (13:44→23:19)
[2024-06-11] MEDS: NOVOLOG FLEXPEN-LOW RESISTANCE 1 UNITS SC ×2 (13:45→17:17)
[2024-06-11] MEDS: TESSALON PERLES 200 MG PO (13:45)
--- NOTE | 2024-06-11 14:08 | CM ---
Received message from pt's spouse permitting CM to speak w/ daughter regarding pt.
CM received call from pt's daughter, Cindi ([phone]). Cindi discussed w/ CM pt's care needs and inability to remain safe in the home. Cindi stated pt's spouse cares for her (helps transfer her into , cook, performs personal care) and that he
is unable to do this for pt. Cindi stated pt and spouse reside at [facility] which has an assisted living level of care but is going to cost around $10,000/ month which they are unable to afford. Cindi stated all pt and spouse's
money goes to where they currently are living. CM offered resources for caregivers/[employer]OB [employer] as additional support in the home but will be an out of pocket cost depending on how many hours and days preferred. Per Cindi, pt and spouse won't be able to
afford this as pt's spouse brings in $5,000 per month which goes to [facility]. CM encouraged Cindi to explore assisted living facilities that are cost effective for both pt and spouse, that can assist pt and spouse if they are unable to continue
to manage at an independent level of care.
CM discussed PT's evaluation of pt and that HH is being recommended at d/c. Cindi stated this will not work for pt as this service is only a few times a week. Cindi asked 'who is going to help walk her to the bathroom?'.
Per Cindi's request, CM notified hospitalist that she would like a call for medical updates.
Plan: Return to [facility] w/ HH is pt and/or spouse is agreeable
[2024-06-11] MEDS: COZAAR 25 MG PO (16:06)
[2024-06-11] MEDS: DELTASONE 40 MG PO (16:06)
[2024-06-11 16:15] VITALS: BP 114/95
[2024-06-11 17:14] LABS: Glucose - Point of Care 151 mg/dl (70-99)
[2024-06-11] MEDS: FLOVENT 110 MCG INHALER 2 PUFF INH (20:07)
[2024-06-11] MEDS: PULMICORT 0.5 MG INH (20:07)
[2024-06-11] MEDS: SODIUM CHLORIDE 3% FOR INHALATION 1 VIAL INH (20:07)
[2024-06-11 20:35] VITALS: BP 167/85
[2024-06-11 21:05] LABS: Glucose - Point of Care 165 mg/dl (70-99)
[2024-06-11] MEDS: PEPCID 40 MG PO (22:10)
[2024-06-11] MEDS: LANTUS 0.1 UNITS SC (22:19)
[2024-06-11] MEDS: ZOFRAN 4 MG IV (22:55)
[2024-06-12] VITALS (8 sets, daily range): BP systolic 151–179; BP diastolic 71–95; BMI 41.0
[2024-06-12 00:57] LABS: Glucose - Point of Care 180 mg/dl (70-99)
--- NOTE | 2024-06-12 03:02 | PTCARENOTE ---
Patient was assessed at change of shift and was AAOx3. Seemed to be a poor historian when reviewing medical history as she denied hx COPD and need for cpap. Family was at bedside. Per report, patient did get confused the previous night - was very
anxious, unable to complete pulse ox study, was yelling and required a private room. Per report, cognition can fluctuate. At 2300, c/o nausea & lower back pain. Described pain as burning sensation. Admin PRN zofran. Also change in MS. Completed
focus neuro assessment which was negative but still concern for acute issue. Manual BP 152/92, 97% 2L, afebrile. C/o of burning sensation then moved to anterior, across chest. Contacted Luly TICKETING CLERK. EKG completed and reviewed. TICKETING CLERK came to assess
patient at bedside, as well as respiratory therapist (she received vest therapy earlier). Patient possibly nauseous due to chronic pain so PRN pain med given. Then approx 0100, patient was calling out and needed to use bathroom. Patient had been
incontinent but RN attempted to use bedpan. Bladder scan was done to r/u retention. No urine noted. Patient was adamant about needing to urinate so RN assisted her OOB to BSC. Patient became anxious, increased work of breathing and audible wheeze
developed. Confusion seemed to be getting worse and RN was concerned for patient having syncopal episode on BSC. RN called for assistance. Focused neuro assessment completed again and seemed negative. VS 95-98% on 2 L, accu 180 but concern for acute
issue. Notified Maricruz TICKETING CLERK again. TICKETING CLERK came to assess patient at bedside again. Patient remained anxious stated she needed to have bowel movement. Positive bowel sounds heard throughout. Colace ordered but patient was unable to take it due to dry
heaving and nausea. Eventually able to calm patient down and encourage rest. Will continue to monitor.
--- NOTE | 2024-06-12 04:15 | PTCARENOTE ---
This RN assumed care of patient. No changes from prior assessment. Pt is resting comfortably in bed at this time. Plan of care is ongoing. Call montemayor is within reach.
[2024-06-12] MEDS: DUONEB 3 ML INH ×4 (08:09→20:54)
[2024-06-12] MEDS: PULMICORT 0.5 MG INH ×2 (08:09→20:54)
[2024-06-12] MEDS: FLOVENT 110 MCG INHALER 2 PUFF INH ×2 (08:09→20:54)
[2024-06-12] MEDS: SODIUM CHLORIDE 3% FOR INHALATION 1 VIAL INH ×2 (08:09→20:54)
[2024-06-12 08:11] LABS: Glucose - Point of Care 113 mg/dl (70-99)
[2024-06-12] MEDS: NOVOLOG FLEXPEN-LOW RESISTANCE SC (08:23)
[2024-06-12] MEDS: COZAAR 25 MG PO (08:27)
[2024-06-12] MEDS: DELTASONE 40 MG PO (08:27)
[2024-06-12] MEDS: OCUVITE SOFTGEL 1 CAP PO ×2 (08:27→20:37)
[2024-06-12] MEDS: LIPITOR 10 MG PO (08:28)
[2024-06-12] MEDS: PROTONIX 40 MG PO (08:28)
[2024-06-12] MEDS: LIDOCAINE 4% PATCH 1 PATCH TOPICAL (08:28)
[2024-06-12] MEDS: CYMBALTA DELAYED RELEASE 60 MG PO ×2 (08:28→20:36)
[2024-06-12] MEDS: ELIQUIS 5 MG PO ×2 (08:28→20:37)
[2024-06-12] MEDS: TOPROL XL 25 MG PO (08:28)
--- NOTE | 2024-06-12 09:11 | W.PN.PUL3 ---
Today's Communication / Plan
-
Continue nebulized therapy. This should continue as outpatient
Remains on Eliquis twice daily
CT chest with chronic airways disease, no acute findings
Stop prednisone given concern for steroid-induced psychosis/confusion
Continue 3% nebulized NS with vest therapy to help with mucus expectoration
PT/OT, out of bed to chair
Head of bed elevation with aspiration precautions
Outpatient office follow-up recommended
Assessment
-
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 We are
asked to comment on pulmonary process
Impression:
Acute hypoxic respiratory insufficiency
On chronic home oxygen
URI symptoms, cough/wheeze
Subjective dyspnea, progressive
Fatigue, TME
History of asthma with acute exacerbation
History of tracheobronchomalacia per records (mentioned on CT chest from May 2018)
Anemia
Elevated right hemidiaphragm, right perihilar process
Conditions present prior to admission
History of renal insufficiency
Diabetes
Fibromyalgia
GERD/PUD
Anemia
Paroxysmal atrial fibrillation
On anticoagulation
History of falls
Plan/recommendations
At this time, patient appears to be comfortable but has multiple chronic comorbidities.
Unfortunate I suspect her symptoms are multifactorial
Salient features include upper airway wheeze with history of tracheomalacia. Patient also with sleep apnea noncompliant with CPAP. She does use oxygen therapy at home
Patient does describe some vague right-sided chest discomfort
CT chest reviewed from 06/10/2024 reveals evidence of bronchial airway thickening, mild bronchiectasis and pleural thickening per my review
Moving forward
For now we will continue with supportive care.
Continue budesonide and DuoNebs [id number]
She is not wheezing today, but still with shortness of breath and difficulty expectorating
She has taken prednisone before and says that she usually improves very well to this. I started her on prednisone taper on 06/11/2024 , but today she is having confusion and this is likely due to steroids --> stop steroids now
Continue nebulized 3% NS with vest therapy
She was recommended to take maintenance inhaler therapy as outpatient but has been unable to afford
Unable to get with contrast given allergy and it appears that she is off the Eliquis however she states she is taking it and this was confirmed with her
Continue Eliquis (resumed on 06/09/2024)
Outpatient records suggest she was on anticoagulation for 6 months stopped in June 2023 per consumer attorney (Jamila)
VBG reviewed. Likely compensated mild hypercapnia
Discussed importance of pursed lip breathing
Unfortunately, without treatment of CPAP, she will continue to have chronic recurrent bronchitis symptoms.
Patient states she was told she does not have sleep apnea
This can be addressed again as outpatient as needed
Disposition efforts
Pulmonary service will continue to follow along while she remains hospitalized.
Total time spent today was 36 minutes for this encounter. Time includes reviewing laboratory test/imaging results, reviewing pertinent medical records, obtaining and reviewing medical history, performing an appropriate exam, ordering medications,
tests and procedures. Time also includes documentation of this encounter, coordinating patient care and communicating with other healthcare professionals. Total time does not include separately billed tests performed on this date of service.
Subjective Data
-
Date of Service:
Date of Service: June 12, 2024
Chief Complaint: Pulmonary Follow Up
Subjective:
Patient seen and evaluated today at bedside. Currently on 2 L/min nasal cannula, and is confused today. Patient's at bedside and he is concerned with her confusion today.
Review of Systems
General: Other (Unable to obtain given patient's acute clinical status)
Objective Data
Data Reviewed
Vital Signs / I&O / Oxygen:
Vital Signs
Temp Pulse Resp BP Pulse Ox
98.7 F 97 18 162/83 93
06/12/24 08:26 06/12/24 08:26 06/12/24 08:26 06/12/24 08:26 06/12/24 08:26
Intake and Output
06/11/24 06/12/24 06/13/24
06:59 06:59 06:59
Intake Total 660 / 660
Balance 660 / 660
SaO2 93
Nasal Cannula flow liters per 2
minute
Physical Exam
General: Respiratory Distress (negative), Comfortable, Chills (n), Sweats (n) and Other (Large neck, narrow posterior oropharynx)
HEENT: Normocephalic and Anicteric
Cardiovascular: S1-S2, Murmur (n), Rub (n) and Peripheral Edema (n)
Respiratory: Wheeze (negative), Crackles (Few at bases), Rhonchi (n), Non-Labored Respirations and Other (Coarse breath sounds heard bilaterally)
GI: Soft, Non Distended (Morbidly obese) and Non Tender
Neurology: Awake, No Motor Deficits (Requires assistance to sit up) and Tremors (negative)
Skin: Warm, Dry, Jaundice (n) and Rash (n)
Labs/Micro/Reports
Microbiology
06/11/24 03:44 Nasal Swab Respiratory Syncytial Virus Culture - Final
Negative for Respiratory Syncytial Virus.
A false negative result may be obtained with a specimen
collected early in the acute phase. If symptoms persist, a
new specimen should be tested.
[2024-06-12 10:17] LABS: % Basophils 0.3 % (0-2); % Eosinophils 0.2 % (0-6); % Immature Granulocytes 0.7 % (0-0.5); % Lymphocytes 19.6 % (20.5-51.1); % Monocytes 13.3 % (1.7-9.3); % Neutrophils 65.9 % (42.2-75.2); Absolute Immature Granulocytes 0.1 10^3/uL (0-0.05); Absolute Lymphocytes 2.2 10^3/uL (1.2-3.4); Absolute Monocytes 1.5 10^3/uL (0.1-0.6); Absolute Neutrophils 7.4 10^3/uL (1.4-6.5); Hematocrit 35.2 % (37.0-47.0); Hemoglobin 11.8 g/dL (12.0-16.0); Mean Corp Hgb Conc. 33.5 g/dL (33.0-37.0); Mean Corpuscular Hgb 28.9 pg (27.0-31.0); Mean Corpuscular Volume 86.3 fL (81.0-99.0); Mean Platelet Volume 9.8 fL (7.4-10.4); Nucleated Red Blood Cells % 0 %; Platelet Count 310 10^3/uL (130-400); Red Blood Cell Count 4.08 10^6/uL (4.20-5.40); Red Cell Dist. Width 15.6 % (11.5-14.5); White Blood Cell Count 11.2 10^3/uL (4.8-10.8)
[2024-06-12 10:36] LABS: Blood Urea Nitrogen 7 mg/dl (7-17); Carbon Dioxide 30 mmol/L (22-30); Chloride 91 mmol/L (98-107); Estimated Creatinine Clearance 75 ml/min; Glucose 129 mg/dl (70-99); Potassium 4.2 mmol/L (3.5-5.1); Sodium 130 mmol/L (135-145); eGFR > 60.00
[2024-06-12] MEDS: MIRALAX 17 GRAMS PO (10:41)
[2024-06-12 12:18] LABS: Glucose - Point of Care 204 mg/dl (70-99)
[2024-06-12] MEDS: NOVOLOG FLEXPEN-LOW RESISTANCE 2 UNITS SC ×2 (12:37→17:54)
--- NOTE | 2024-06-12 13:10 | W.PN.HOSP.TC ---
Today's Communication/Plan
-
monitor vitals
see plan
pt/ot
cw prednisone and breathing treatments
on o2
Assessment / Plan
Assessment / Plan
84y F with PMH significant for COPD, chronic hypoxemia and chronic pain syndrome / fibromyalgia who presents to ED for evaluation of cough, dyspnea and fatigue.
Gen: NAD, awake and alert
Eyes: EOMI, PERRLA, no scleral icterus.
Neck: supple.
CV: remains RRR, +S1/S2, no m/r/g.
Resp: CTAB anteriorly
Abd: remains +BS, soft, NT, ND
Skin: No rashes. 2+ B/L LE edema
Neuro: CN 2-12 intact, non-focal.
Psych: Normal mood and affect.
CXR: mild elevation of the left hemidiaphragm with left greater than right bibasilar opacities favored to represent chronic atelectasis/scarring.
Acute toxic metabolic encephalopathy suspect likely secondary to TME from medications
-Patient was somnolent/encephalopathic in the ED
-VBG 06/09/24AM 7.36/58/107
-holding sedating meds
-currently saturating well on 2L NC O2
-TSH/B12 normals
SOB:
Chronic hypoxic respiratory failure, on 2 L nasal cannula
-underlying asthma now with Acute Exacerbation
-History of tracheomalacia
-underlying morbid Obesity due to excess calories as well as sedentary lifestyle, very likely FAITH/OHS (suspect primary etiology)
-CXR without PNA
-Acapella, IS
-pulm saw in c/s
-Pulmicort and DuoNebs ATC added
added prednisone
CT chest showed bibasilar atelectasis/scarring. Chronic compression deformity of T7 and T10.
-NC O2 support
Echo with preserved EF
Hyponatremia
Monitor
Fibromyalgia
Chronic Pain Syndrome
Anxiety/Depression
-Holding sedating meds as noted above
Restart oxycodone however at 5 mg
Discussed with daughter, she also believes that patient is on a lot of medications that can be sedative. Continue to monitor closely
Normocytic Anemia
-No evident source of blood loss
monitor
Other problems:
DM2: a1c 7.1%, cont Lantus/SSI/accuchecks
Paroxysmal Atrial Fibrillation: cont BB/Eliquis
GERD/PUD: cont PPI
FULL/Eliquis
Anticipated Discharge: Within 24 hours
Subjective/Interval History
-
Date of Service: June 12, 2024
denies pain
Objective Data
-
Labs:
Laboratory Results
06/12/24
09:36
WBC 11.2 H
Hgb 11.8 L
Hct 35.2 L
Plt Count 310
Sodium 130 L
Potassium 4.2
Chloride 91 L
Carbon Dioxide 30
BUN 7
Creatinine 0.6
Glucose 129 H
Calcium 9.0
Vital Signs:
Vital Signs
Temp Pulse Resp BP Pulse Ox
98.4 F 76 18 162/80 97
06/12/24 11:40 06/12/24 12:06 06/12/24 12:06 06/12/24 11:40 06/12/24 12:06
I&O
06/11/24 06/12/24 06/13/24
06:59 06:59 06:59
Intake Total 660 / 660
Balance 660 / 660
[2024-06-12 17:10] LABS: Glucose - Point of Care 225 mg/dl (70-99)
[2024-06-12] MEDS: PEPCID 40 MG PO (20:37)
[2024-06-12 20:58] LABS: Glucose - Point of Care 217 mg/dl (70-99)
[2024-06-12] MEDS: LANTUS 0.1 UNITS SC (22:51)
[2024-06-13 02:50] VITALS: BP 156/74
[2024-06-13 06:00] VITALS: BMI 41.0
[2024-06-13 07:02] LABS: % Basophils 0.3 % (0-2); % Eosinophils 0.4 % (0-6); % Immature Granulocytes 0.6 % (0-0.5); % Lymphocytes 12.8 % (20.5-51.1); % Monocytes 11.5 % (1.7-9.3); % Neutrophils 74.4 % (42.2-75.2); Absolute Basophils 0.1 10^3/uL (0-0.2); Absolute Eosinophils 0.1 10^3/uL (0-0.7); Absolute Immature Granulocytes 0.1 10^3/uL (0-0.05); Absolute Lymphocytes 2.1 10^3/uL (1.2-3.4); Absolute Monocytes 1.8 10^3/uL (0.1-0.6); Absolute Neutrophils 11.9 10^3/uL (1.4-6.5); Hematocrit 33.6 % (37.0-47.0); Hemoglobin 11.3 g/dL (12.0-16.0); Mean Corp Hgb Conc. 33.6 g/dL (33.0-37.0); Mean Corpuscular Volume 86.4 fL (81.0-99.0); Mean Platelet Volume 10.1 fL (7.4-10.4); Nucleated Red Blood Cells % 0 %; Platelet Count 316 10^3/uL (130-400); Red Blood Cell Count 3.89 10^6/uL (4.20-5.40); Red Cell Dist. Width 15.8 % (11.5-14.5)
[2024-06-13 07:08] VITALS: BP 131/73
[2024-06-13 07:20] LABS: Blood Urea Nitrogen 10 mg/dl (7-17); Calcium 8.8 mg/dl (8.4-10.2); Carbon Dioxide 31 mmol/L (22-30); Chloride 89 mmol/L (98-107); Estimated Creatinine Clearance 75 ml/min; Glucose 106 mg/dl (70-99); Potassium 4.2 mmol/L (3.5-5.1); Sodium 128 mmol/L (135-145); eGFR > 60.00
[2024-06-13] MEDS: SODIUM CHLORIDE 3% FOR INHALATION 1 VIAL INH ×2 (07:37→20:27)
[2024-06-13] MEDS: FLOVENT 110 MCG INHALER 2 PUFF INH (07:37)
[2024-06-13] MEDS: PULMICORT 0.5 MG INH ×2 (07:37→20:28)
[2024-06-13] MEDS: DUONEB 3 ML INH ×3 (07:37→20:27)
[2024-06-13 09:17] LABS: Glucose - Point of Care 81 mg/dl (70-99)
--- NOTE | 2024-06-13 09:46 | PTCARENOTE ---
Pt's BS 81; pt lethargic but arousable. d 50 IV 1/2 amp given IV per order DR. Duffy. Pt refusing PO meds/will not open mouth; swats my hand away. Dr. Duffy aware. Will continue to monitor.
[2024-06-13] MEDS: LIDOCAINE 4% PATCH 1 PATCH TOPICAL (09:48)
[2024-06-13] MEDS: NOVOLOG FLEXPEN-LOW RESISTANCE SC ×3 (09:48→18:15)
[2024-06-13] MEDS: ELIQUIS 5 MG PO ×2 (09:51→21:58)
[2024-06-13] MEDS: TOPROL XL 25 MG PO (09:51)
[2024-06-13] MEDS: MIRALAX 17 GRAMS PO (09:51)
[2024-06-13] MEDS: OCUVITE SOFTGEL 1 CAP PO (09:51)
[2024-06-13] MEDS: PROTONIX 40 MG PO (09:51)
[2024-06-13] MEDS: CYMBALTA DELAYED RELEASE 60 MG PO (09:51)
[2024-06-13] MEDS: COZAAR 25 MG PO (09:52)
[2024-06-13] MEDS: LIPITOR 10 MG PO (09:52)
[2024-06-13 11:17] VITALS: BP 147/66
[2024-06-13 12:09] LABS: Glucose - Point of Care 139 mg/dl (70-99)
--- NOTE | 2024-06-13 12:17 | W.PN.HOSP.TC ---
Addendum entered and electronically signed by Donovan Duffy MD 06/13/24 12:37:
I spent a total of 52 minutes with the patient or on the floor. More than 50% of this time involved counseling and coordination of care.
Original Note:
Today's Communication/Plan
-
monitor vitals
see plan
dec insulin
CT head
Monitor mental status closely
Monitor off steroids
Discussed with over the phone
Check urine and serum studies for hyponatremia
Assessment / Plan
Assessment / Plan
84y F with PMH significant for COPD, chronic hypoxemia and chronic pain syndrome / fibromyalgia who presents to ED for evaluation of cough, dyspnea and fatigue.
Gen: NAD, awake
Eyes: EOMI, PERRLA, no scleral icterus.
Neck: supple.
CV: remains RRR, +S1/S2, no m/r/g.
Resp: CTAB anteriorly
Abd: remains +BS, soft, NT, ND
Skin: No rashes. 2+ B/L LE edema
Neuro: confused
CXR: mild elevation of the left hemidiaphragm with left greater than right bibasilar opacities favored to represent chronic atelectasis/scarring.
Acute toxic metabolic encephalopathy suspect likely secondary to TME from medications and possible now acute psychosis from steroids
-Patient is agitated at times; steroids now stopped
-VBG 06/09/24AM 7.36/58/107
-holding sedating meds
-currently saturating well on 2L NC O2
-TSH/B12 normals
hx of CVA;check CT head. if mental status do not improve then likely will need MRI
SOB:
Chronic hypoxic respiratory failure, on 2 L nasal cannula
-underlying asthma however now does not suspect acute exacerbation
-History of tracheomalacia
-underlying morbid Obesity due to excess calories as well as sedentary lifestyle, very likely FAITH/OHS (suspect primary etiology)
-CXR without PNA
-Acapella, IS
-pulm saw in c/s
-Pulmicort and DuoNebs ATC added
CT chest showed bibasilar atelectasis/scarring. Chronic compression deformity of T7 and T10.
-NC O2 support
Echo with preserved EF
hyponatremia
monitor
check urine and serum studies
Fibromyalgia
Chronic Pain Syndrome
Anxiety/Depression
-Holding sedating meds as noted above
Restart oxycodone however at 5 mg
Discussed with daughter, she also believes that patient is on a lot of medications that can be sedative. Continue to monitor closely
Normocytic Anemia
-No evident source of blood loss
monitor
Other problems:
DM2: a1c 7.1%, cont Lantus/SSI/accuchecks
Paroxysmal Atrial Fibrillation: cont BB/Eliquis
GERD/PUD: cont PPI
FULL/Eliquis
Anticipated Discharge: > 48 hours
Subjective/Interval History
-
Date of Service: June 13, 2024
confuse this morning
Objective Data
-
Labs:
Laboratory Results
06/13/24
06:00
WBC 16.0 H
Hgb 11.3 L
Hct 33.6 L
Plt Count 316
Sodium 128 L
Potassium 4.2
Chloride 89 L
Carbon Dioxide 31 H
BUN 10
Creatinine 0.6
Glucose 106 H
Calcium 8.8
Vital Signs:
Vital Signs
Temp Pulse Resp BP Pulse Ox
98.4 F 87 16 131/73 94
06/13/24 07:08 06/13/24 11:42 06/13/24 11:42 06/13/24 09:52 06/13/24 11:42
I&O
06/12/24 06/13/24 06/14/24
06:59 06:59 06:59
Intake Total 660 / 660 420 / 420
Balance 660 / 660 420 / 420
[2024-06-13 13:29] LABS: Osmolality Serum 272 mOsm/kg (275-300)
[2024-06-13] MEDS: DUONEB INH (15:27)
[2024-06-13 15:55] VITALS: BP 165/91
--- NOTE | 2024-06-13 16:02 | W.PN.PUL3 ---
Today's Communication / Plan
-
Continue DuoNeb/Pulmicort-May continue in the outpatient setting until improved
Can restart inhalers after she improves in the outpatient setting
Agree with disposition efforts
Sleep apnea/obesity hypoventilation can be readdressed in the outpatient setting
Avoid sedatives
Assessment
-
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 We are
asked to comment on pulmonary process
Impression:
Acute hypoxic respiratory insufficiency
On chronic home oxygen
URI symptoms, cough/wheeze
Subjective dyspnea, progressive
Fatigue, TME
History of asthma with acute exacerbation
History of tracheobronchomalacia per records (mentioned on CT chest from May 2018)
Anemia
Elevated right hemidiaphragm, right perihilar process
Conditions present prior to admission
History of renal insufficiency
Diabetes
Fibromyalgia
GERD/PUD
Anemia
Paroxysmal atrial fibrillation
On anticoagulation
History of falls
Plan/recommendations
At this time, patient appears to be comfortable but has multiple chronic comorbidities.
Unfortunate I suspect her symptoms are multifactorial
Salient features include upper airway wheeze with history of tracheomalacia. Patient also with sleep apnea noncompliant with CPAP. She does use oxygen therapy at home
Patient does describe some vague right-sided chest discomfort
CT chest 06/10/2024 reveals evidence of bronchial airway thickening, mild bronchiectasis and pleural thickening per my review
Plan:
For now we will continue with supportive care.
Continue budesonide and DuoNebs [id number] (usually on Arnuity Ellipta and Singulair in the outpatient setting)
Not bronchospastic on exam. Reports chronic shortness of breath.
She has taken prednisone before and says that she usually improves very well to this. Was On prednisone taper on 06/11/2024 , but developed Confusion and this is likely due to steroids --> steroids have been discontinued.
Continue nebulized 3% NS with vest therapy
She was recommended to take maintenance inhaler therapy as outpatient but has been unable to afford
Unable to get with contrast given allergy and it appears that she is off the Eliquis however she states she is taking it and this was confirmed with her
Continue Eliquis (resumed on 06/09/2024)
Outpatient records suggest she was on anticoagulation for 6 months stopped in June 2023 per mass spectroscopist (Jamila)
VBG reviewed. Likely compensated mild hypercapnia
Patient was coached on breathing techniques.
Unfortunately, without treatment of CPAP, she will continue to have chronic recurrent bronchitis symptoms.
Patient states she was told she does not have sleep apnea
This can be addressed again as outpatient as needed
Disposition efforts
Pulmonary service will continue to follow along while she remains hospitalized.
Subjective Data
-
Date of Service:
Date of Service: June 13, 2024
Chief Complaint: Pulmonary Follow Up
Objective Data
Data Reviewed
Vital Signs / I&O / Oxygen:
Vital Signs
Temp Pulse Resp BP Pulse Ox
99.2 F 87 16 147/66 94
06/13/24 11:17 06/13/24 11:42 06/13/24 11:42 06/13/24 11:17 06/13/24 11:42
Intake and Output
06/12/24 06/13/24 06/14/24
06:59 06:59 06:59
Intake Total 660 / 660 420 / 420
Balance 660 / 660 420 / 420
SaO2 94
Nasal Cannula flow liters per 2
minute
Physical Exam
General: Respiratory Distress (negative), Comfortable, Chills (n), Sweats (n) and Other (Large neck, narrow posterior oropharynx)
HEENT: Normocephalic and Anicteric
Cardiovascular: S1-S2, Murmur (n), Rub (n) and Peripheral Edema (n)
Respiratory: Wheeze (negative), Crackles (Few at bases), Rhonchi (n), Non-Labored Respirations and Other (Coarse breath sounds heard bilaterally)
GI: Soft, Non Distended (Morbidly obese) and Non Tender
Neurology: Awake, No Motor Deficits (Requires assistance to sit up) and Tremors (negative)
Skin: Warm, Dry, Jaundice (n) and Rash (n)
Labs/Micro/Reports
Lab Data
06/13/24 06:00
06/13/24 06:00
Microbiology
06/11/24 03:44 Nasal Swab Respiratory Syncytial Virus Culture - Final
Negative for Respiratory Syncytial Virus.
A false negative result may be obtained with a specimen
collected early in the acute phase. If symptoms persist, a
new specimen should be tested.
--- NOTE | 2024-06-13 17:02 | PTCARENOTE ---
Pt awake and alert, oriented to self; difficult to assess orientation- pt confused/speech garbled. Follows commands appropriately; occ answers 'yes' and 'No' to questions. Restless at times; attempts to climb OOB. JOLLY randomly; turns self in bed.
VSS. Telemetry:NSR/sinus tachy. Maintained on nc 2 lpm-pulse ox 99%; no SOB noted, pt with occ dry, non-productive cough. Abd obese, soft; refusing meal trays- spits out food. occ takes small amts liquids. Incont urine/occ voids on bedpan.
Resting in bed at present. Ct of head copmleted. Will continue to monitor.
[2024-06-13 18:02] LABS: Glucose - Point of Care 142 mg/dl (70-99)
[2024-06-13] MEDS: FLOVENT 110 MCG INHALER INH (20:33)
[2024-06-13 20:49] VITALS: BP 163/61
[2024-06-13] MEDS: OCUVITE SOFTGEL PO ×2 (21:59→22:03)
[2024-06-13] MEDS: CYMBALTA DELAYED RELEASE PO ×2 (21:59→22:03)
[2024-06-13] MEDS: PEPCID PO ×2 (21:59→22:03)
[2024-06-13 22:19] LABS: Glucose - Point of Care 101 mg/dl (70-99)
--- NOTE | 2024-06-13 22:50 | PTCARENOTE ---
Karel texted House Provider Jazmín Loza that pt's blood sugar= 101 and she is scheduled to get 8 units of lantus. Pt has very poor PO intake due to mental status. Provider said to hold off on lantus for now and recheck blood sugar at midnight.
[2024-06-13 23:58] LABS: Glucose - Point of Care 118 mg/dl (70-99)
[2024-06-14] VITALS (8 sets, daily range): BP systolic 154–184; BP diastolic 77–94; PULSE 96; BMI 40.6
--- NOTE | 2024-06-14 | PTCARENOTE ---
Pt's repeat blood sugar= 118. House Provider Jazmín Loza notified, who advised to give lantus with a snack or to hold the lantus altogether if pt unable to tolerate PO. Pt has not been able to tolerate PO intake, so lantus held.
[2024-06-14] MEDS: SODIUM CHLORIDE 3% FOR INHALATION 1 VIAL INH (07:17)
[2024-06-14] MEDS: DUONEB 3 ML INH (07:17)
[2024-06-14] MEDS: PULMICORT 0.5 MG INH (07:18)
[2024-06-14] MEDS: FLOVENT 110 MCG INHALER INH ×3 (07:18→22:20)
[2024-06-14 07:50] LABS: Osmolality Urine 513 mOsm/kg (300-900)
[2024-06-14 08:00] LABS: Glucose - Point of Care 85 mg/dl (70-99)
[2024-06-14] MEDS: NOVOLOG FLEXPEN-LOW RESISTANCE SC ×3 (08:05→17:55)
[2024-06-14 08:13] LABS: Urine Sodium 211 mmol/L (30-90)
--- NOTE | 2024-06-14 08:50 | W.PN.PUL3 ---
Today's Communication / Plan
-
DC nebs + vets as she is refusing
Can restart inhalers after she improves in the outpatient setting
Agree with disposition efforts
Sleep apnea/obesity hypoventilation can be readdressed in the outpatient setting
Avoid sedatives
Assessment
-
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 We are
asked to comment on pulmonary process
Impression:
Acute hypoxic respiratory insufficiency
On chronic home oxygen
URI symptoms, cough/wheeze
Subjective dyspnea, progressive
Fatigue, TME
History of asthma with acute exacerbation
History of tracheobronchomalacia per records (mentioned on CT chest from May 2018)
Anemia
Elevated right hemidiaphragm, right perihilar process
Conditions present prior to admission
History of renal insufficiency
Diabetes
Fibromyalgia
GERD/PUD
Anemia
Paroxysmal atrial fibrillation
On anticoagulation
History of falls
Plan/recommendations
At this time, patient appears to be comfortable but has multiple chronic comorbidities.
Unfortunate I suspect her symptoms are multifactorial
Salient features include upper airway wheeze with history of tracheomalacia. Patient also with sleep apnea noncompliant with CPAP. She does use oxygen therapy at home
Patient does describe some vague right-sided chest discomfort
CT chest 06/10/2024 reveals evidence of bronchial airway thickening, mild bronchiectasis and pleural thickening per my review
Plan:
For now we will continue with supportive care.
She is refusing her nebs; continue flovent (usually on Arnuity Ellipta and Singulair in the outpatient setting)
Not bronchospastic on exam. Reports chronic shortness of breath.
She has taken prednisone before and says that she usually improves very well to this. Was On prednisone taper on 06/11/2024 , but developed confusion and this is likely due to steroids --> steroids have been discontinued.
Refusing nebulized 3% NS with vest therapy --> will DC both
She was recommended to take maintenance inhaler therapy as outpatient but has been unable to afford
Unable to get with contrast given allergy and it appears that she is off the Eliquis however she states she is taking it and this was confirmed with her
Continue Eliquis (resumed on 06/09/2024)
Outpatient records suggest she was on anticoagulation for 6 months stopped in June 2023 per poultry killer (Jamila)
VBG reviewed. Likely compensated mild hypercapnia
VBG performed this morning shows pH 7.4 and pCO2 41
Patient was coached on breathing techniques.
Unfortunately, without treatment of CPAP, she will continue to have chronic recurrent bronchitis symptoms.
Patient states she was told she does not have sleep apnea
Given her altered mental status would avoid CPAP currently until cognition improves
This can be addressed again as outpatient as needed
Disposition efforts
Pulmonary service will continue to follow along while she remains hospitalized.
Total time spent today was 38 minutes for this encounter. Time includes reviewing laboratory test/imaging results, reviewing pertinent medical records, obtaining and reviewing medical history, performing an appropriate exam, ordering medications,
tests and procedures. Time also includes documentation of this encounter, coordinating patient care and communicating with other healthcare professionals. Total time does not include separately billed tests performed on this date of service.
Subjective Data
-
Date of Service:
Date of Service: June 14, 2024
Chief Complaint: Pulmonary Follow Up
Subjective:
Patient was seen and evaluated today at bedside. Still confused. Currently on 2 L/min saturating 97%. CT head performed yesterday showed no acute ICH or transcortical infarction.
Review of Systems
General: Other (Unable to perform given patient's acute clinical status/confusion)
Objective Data
Data Reviewed
Vital Signs / I&O / Oxygen:
Vital Signs
Temp Pulse Resp BP Pulse Ox
97.9 F 88 16 160/78 97
06/14/24 03:06 06/14/24 07:23 06/14/24 07:23 06/14/24 03:18 06/14/24 07:23
Intake and Output
06/13/24 06/14/24 06/15/24
06:59 06:59 06:59
Intake Total 420 / 420 420 / 420
Balance 420 / 420 420 / 420
SaO2 97
Nasal Cannula flow liters per 2
minute
Physical Exam
General: Respiratory Distress (negative), Comfortable, Chills (n), Sweats (n) and Other (Large neck, narrow posterior oropharynx)
HEENT: Normocephalic and Anicteric
Cardiovascular: S1-S2, Murmur (n), Rub (n) and Peripheral Edema (n)
Respiratory: Wheeze (negative), Crackles (Few at bases), Rhonchi (n), Non-Labored Respirations and Other (Coarse breath sounds heard bilaterally)
GI: Soft, Non Distended (Morbidly obese) and Non Tender
Neurology: Awake, No Motor Deficits (Requires assistance to sit up), Tremors (negative) and Other (Confused/agitated at times)
Skin: Warm, Dry, Jaundice (n) and Rash (n)
Labs/Micro/Reports
Microbiology
06/11/24 03:44 Nasal Swab Respiratory Syncytial Virus Culture - Final
Negative for Respiratory Syncytial Virus.
A false negative result may be obtained with a specimen
collected early in the acute phase. If symptoms persist, a
new specimen should be tested.
[2024-06-14] MEDS: CYMBALTA DELAYED RELEASE PO ×2 (09:50→21:57)
[2024-06-14] MEDS: MIRALAX PO (09:50)
[2024-06-14] MEDS: OCUVITE SOFTGEL PO ×2 (09:50→21:57)
[2024-06-14] MEDS: COZAAR PO (09:50)
[2024-06-14] MEDS: LIPITOR PO (09:50)
[2024-06-14] MEDS: PROTONIX PO (09:50)
[2024-06-14] MEDS: TOPROL XL PO (09:50)
[2024-06-14] MEDS: ELIQUIS PO ×2 (09:50→21:57)
[2024-06-14] MEDS: LIDOCAINE 4% PATCH 1 PATCH TOPICAL (09:54)
[2024-06-14] MEDS: APRESOLINE 5 MG IV ×2 (10:01→22:26)
[2024-06-14 10:03] LABS: Blood Urea Nitrogen 6 mg/dl (7-17); Calcium 8.6 mg/dl (8.4-10.2); Carbon Dioxide 29 mmol/L (22-30); Chloride 91 mmol/L (98-107); Estimated Creatinine Clearance 74 ml/min; Glucose 111 mg/dl (70-99); Sodium 126 mmol/L (135-145); eGFR > 60.00
[2024-06-14 11:11] LABS: % Basophils 0.4 % (0-2); % Eosinophils 1.7 % (0-6); % Immature Granulocytes 0.5 % (0-0.5); % Lymphocytes 15.2 % (20.5-51.1); % Monocytes 9.5 % (1.7-9.3); % Neutrophils 72.7 % (42.2-75.2); Absolute Basophils 0.1 10^3/uL (0-0.2); Absolute Eosinophils 0.2 10^3/uL (0-0.7); Absolute Immature Granulocytes 0.1 10^3/uL (0-0.05); Absolute Lymphocytes 1.9 10^3/uL (1.2-3.4); Absolute Monocytes 1.2 10^3/uL (0.1-0.6); Absolute Neutrophils 9.2 10^3/uL (1.4-6.5); Hematocrit 35.5 % (37.0-47.0); Hemoglobin 11.8 g/dL (12.0-16.0); Mean Corp Hgb Conc. 33.2 g/dL (33.0-37.0); Mean Corpuscular Hgb 28.8 pg (27.0-31.0); Mean Corpuscular Volume 86.6 fL (81.0-99.0); Mean Platelet Volume 9.6 fL (7.4-10.4); Nucleated Red Blood Cells % 0 %; Platelet Count 333 10^3/uL (130-400); Red Cell Dist. Width 15.6 % (11.5-14.5); White Blood Cell Count 12.7 10^3/uL (4.8-10.8)
--- NOTE | 2024-06-14 13:03 | W.PN.HOSP.TC ---
Today's Communication/Plan
-
Monitor vital signs
see plan
Continues to be confused, neurology evaluation
Sodium 126, fluid restriction. Nephrology to see
Discussed with over the phone
Monitor mental status closely
Check VBG
Assessment / Plan
Assessment / Plan
84y F with PMH significant for COPD, chronic hypoxemia and chronic pain syndrome / fibromyalgia who presents to ED for evaluation of cough, dyspnea and fatigue.
Gen: NAD, awake
Eyes: EOMI, PERRLA, no scleral icterus.
Neck: supple.
CV: remains RRR, +S1/S2, no m/r/g.
Resp: CTAB anteriorly
Abd: remains +BS, soft, NT, ND
Skin: No rashes. 2+ B/L LE edema
Neuro: confused
CXR: mild elevation of the left hemidiaphragm with left greater than right bibasilar opacities favored to represent chronic atelectasis/scarring.
Acute toxic metabolic encephalopathy suspect likely secondary to TME from medications and possible now acute psychosis from steroids
-Patient is agitated at times; steroids now stopped
-VBG 06/09/24AM 7.36/58/107
Check VBG again, check chest x-ray, UA
-holding sedating meds
-currently saturating well on 2L NC O2
-TSH/B12 normals
hx of CVA;check CT head. if mental status do not improve then likely will need MRI if stable to lay still. Neurology evaluation
hyponatremia
monitor
Fluid restriction
Nephrology evaluation
SOB:
Chronic hypoxic respiratory failure, on 2 L nasal cannula
-underlying asthma however now does not suspect acute exacerbation
-History of tracheomalacia
-underlying morbid Obesity due to excess calories as well as sedentary lifestyle, very likely FAITH/OHS (suspect primary etiology)
-CXR without PNA
-Acapella, IS
-pulm saw in c/s
-Pulmicort and DuoNebs ATC added
CT chest showed bibasilar atelectasis/scarring. Chronic compression deformity of T7 and T10.
-NC O2 support
Echo with preserved EF
Fibromyalgia
Chronic Pain Syndrome
Anxiety/Depression
-Holding sedating meds as noted above
Restart oxycodone however at 5 mg
Discussed with daughter, she also believes that patient is on a lot of medications that can be sedative. Continue to monitor closely
Normocytic Anemia
-No evident source of blood loss
monitor
Other problems:
DM2: a1c 7.1%, cont Lantus/SSI/accuchecks
Paroxysmal Atrial Fibrillation: cont BB/Eliquis
GERD/PUD: cont PPI
FULL/Eliquis
I spent a total of 52 minutes with the patient or on the floor. More than 50% of this time involved counseling and coordination of care.
Anticipated Discharge: > 48 hours
Subjective/Interval History
-
Date of Service: June 14, 2024
confuse this morning
Objective Data
-
Labs:
Laboratory Results
06/14/24 06/14/24 06/14/24
08:04 09:09 10:48
WBC Cancelled 12.7 H
Hgb Cancelled 11.8 L
Hct Cancelled 35.5 L
Plt Count Cancelled 333
Sodium Cancelled 126 L
Potassium Cancelled 4.0
Chloride Cancelled 91 L
Carbon Dioxide Cancelled 29
BUN Cancelled 6 L
Creatinine Cancelled 0.5 L
Glucose Cancelled 111 H
Calcium Cancelled 8.6
Vital Signs:
Vital Signs
Temp Pulse Resp BP Pulse Ox
97.4 F 96 20 173/79 97
06/14/24 11:55 06/14/24 11:55 06/14/24 11:55 06/14/24 11:55 06/14/24 11:55
I&O
06/13/24 06/14/24 06/15/24
06:59 06:59 06:59
Intake Total 420 / 420 420 / 420 180 / 180
Balance 420 / 420 420 / 420 180 / 180
--- NOTE | 2024-06-14 13:28 | W.CON.NEPH ---
Consultation
-
Date/Time Consultation Requested: 06/14/2024 1 PM
Date/Time Consultation Performed: 06/14/2024 1 PM
Requesting Provider: Dr. Duffy
Performing Provider: Dr. Barajas
Reason for Consultation: Hyponatremia
Medical History
-
Chief Complaint: Shortness of breath
History of Present Illness:
Patient is an 84y F with COPD, chronic hypoxemia, DM-II, fibromyalgia and anxiety / depression who presented to ED for evaluation of cough, SOB and fatigue. Patient was recently hospitalized at [facility] s/p fall. She was treated during that stay for
LLE cellulitis, MANSOOR, and ultimately discharged to SNF. While at SNF, patient developed cough and SOB and was diagnosed / treated for pneumonia. Since that time family has noticed ongoing, hacking, non-productive cough. Patient has seemed weak /
fatigued. She has difficulty with transfers - even with assistance. She uses a Hover-round for locomotion. Given worsening respiratory symptoms they brought her to her primary care physician who recommended ER evaluation. She was admitted for
acute COPD exacerbation and treated with steroids. However her mental status deteriorated and she became confused. Steroids were discontinued. Since admission her sodium level has slowly declined now at 126 and we are asked to assist with
management of the hyponatremia. Her oral intake is very poor given her confusion.
Past Medical History
DM-II
Fibromyalgia
GERD / PUD
Asthma / COPD
Chronic Hypoxemic Respiratory Failure
Hyperparathyroidism
Osteoporosis
Hypertension
OAB / Incontinence
Anxiety / Depression
History of PE
Morbid Obesity
Paroxysmal A-Fib
Hiatal Hernia repair / Fundoplication
Partial Small Bowel Resection
Cholecystectomy
Hysterectomy
Left Knee Arthroscopy
Bladder Lift
Interstim Implant
Social History
Tobacco: Non-Smoker
Alcohol: None
Family History
Family History: Not Pertinent
Allergies / Home Medications
Allergy/AdvReac Type Severity Reaction Status Date / Time
amoxicillin trihydrate Allergy Nausea / Verified 06/08/24 15:35
[From Augmentin] Vomiting
clarithromycin [From Biaxin] Allergy Nausea / Verified 06/08/24 15:35
Vomiting
clindamycin Allergy Nausea / Verified 06/08/24 15:35
Vomiting
diazepam Allergy HEADACHE Verified 06/08/24 15:35
fentanyl Allergy hallucinati Verified 06/08/24 15:35
on
hydromorphone HCl Allergy Itching Verified 06/08/24 15:35
[From Dilaudid]
Iodinated Contrast Media Allergy Tongue Verified 06/08/24 15:35
[IV Dye, Iodine Containing Swelling
Contrast ]
iodine [Iodine] Allergy Itchy Rash Verified 06/08/24 15:35
levofloxacin [From Levaquin] Allergy REDNESS Verified 06/08/24 15:35
AND
ITCHING AT
IV SITE
methylprednisolone Allergy HEADACHE Verified 06/08/24 15:35
[From Medrol]
morphine [Morphine] Allergy SEVERE Verified 06/08/24 15:35
ITCH,RED
RASH
potassium clavulanate Allergy Nausea / Verified 06/08/24 15:35
[From Augmentin] Vomiting
STEROIDS Allergy MIGRAINES Uncoded 06/08/24 15:35
�Medication �Instructions �Recorded �Confirmed �Type
xkuyl-[id number]-epa-fish oil 120 1,200 mg PO DAILY Supplement 07/07/15 06/08/24 History
mg-180 mg-60 mg-1,200 mg capsule,
DR (Fish Oil)
pantoprazole 40 mg tablet,delayed 40 mg PO DAILY gastric erosions 05/28/18 06/08/24 History
release
vitamins A,C,Z-grjt-dkuwms 4,296 1 cap PO BID Supplement 05/28/18 06/08/24 History
mcg-226 mg-90 mg capsule
(PreserVision AREDS)
atorvastatin 10 mg tablet 10 mg PO DAILY High cholesterol 05/08/21 06/08/24 History
dicyclomine 10 mg capsule 10 mg PO BIDPRN PRN cramping 05/08/21 06/08/24 History
duloxetine 60 mg capsule,delayed 60 mg PO BID DEPRESSION/PAIN 05/08/21 06/08/24 History
release
insulin aspart U-100 100 unit/mL 8 units SC AC Diabetes 05/08/21 06/08/24 History
(3 mL) subcutaneous pen (Novolog
FlexPen U-100 Insulin aspart)
albuterol sulfate 90 mcg/actuation 2 puff inhalation R Q6HPRN PRN SOB 08/12/22 06/08/24 History
aerosol inhaler (Ventolin HFA)
montelukast 10 mg tablet 10 mg PO HS Lung/Breathing Issues 08/12/22 06/08/24 History
nortriptyline 50 mg capsule 50 mg PO HS Mental Health/Anxiety 08/12/22 06/08/24 History
benzonatate 200 mg capsule 200 mg PO TID Cough 08/16/22 06/08/24 History
cholecalciferol (vitamin D3) 50 50 mcg PO DAILY Supplement 05/10/23 06/08/24 History
mcg (2,000 unit) tablet (Vitamin
D3)
docusate sodium 100 mg capsule 100 mg PO NOON STOOL SOFTENER 05/10/23 06/08/24 History
(Colace)
insulin degludec 100 unit/mL (3 15 unit SC HS Diabetes 05/10/23 06/08/24 History
mL) subcutaneous pen (Tresiba
FlexTouch U-100 insulin)
ramelteon 8 mg tablet 8 mg PO HS 05/10/23 06/08/24 History
apixaban 5 mg tablet (Eliquis) 5 mg PO BID Blood Clot 06/08/24 06/08/24 History
Prevention/Tx
calcium carbonate (Calcium 600) 600 mg PO BID Supplement 06/08/24 06/08/24 History
famotidine 40 mg tablet 40 mg PO HS Gastrointestinal Issue 06/08/24 06/08/24 History
fluticasone furoate 200 1 inh inhalation R HS 06/08/24 06/08/24 History
mcg/actuation blister powder for Lung/Breathing Issues
inhalation (Arnuity Ellipta)
fluticasone propionate 50 1 spray intranasal HS NASAL 06/08/24 06/08/24 History
mcg/actuation nasal CONGESTION
spray,suspension
ipratropium 0.5 mg-albuterol 3 mg 3 ml inhalation R TIDPRN PRN sob 06/08/24 06/08/24 History
(2.5 mg base)/3 mL nebulization
soln
lidocaine 4 % topical cream 1 applic topical BID R knee 06/08/24 06/08/24 History
losartan 25 mg tablet 25 mg PO DAILY Blood Pressure 06/08/24 06/08/24 History
metoprolol succinate 25 mg 25 mg PO DAILY Blood Pressure 06/08/24 06/08/24 History
tablet,extended release 24 hr
nystatin 100,000 unit/gram topical 1 applic topical BID abd folds, 06/08/24 06/08/24 History
powder groin, chest
polyethylene glycol 3350 17 gram 17 g PO DAILYPRN PRN constipation 06/08/24 06/08/24 History
oral powder packet (Miralax)
psyllium 1 packet PO DAILY Gastrointestinal 06/08/24 06/08/24 History
Issue
Review of Systems
-
Patient confused, nods yes or no to basic questions only. No chest pain shortness of breath.
All other systems: Negative unless noted
Physical Exam
Vital Signs
Vital Signs
Temp Pulse Resp BP Pulse Ox
97.4 F 96 20 173/79 97
06/14/24 11:55 06/14/24 11:55 06/14/24 11:55 06/14/24 11:55 06/14/24 11:55
Lab Results
WBC 12.7 10^3/uL (4.8-10.8) H 06/14/24 10:48
RBC 4.10 10^6/uL (4.20-5.40) L 06/14/24 10:48
Hgb 11.8 g/dL (12.0-16.0) L 06/14/24 10:48
Hct 35.5 % (37.0-47.0) L 06/14/24 10:48
Plt Count 333 10^3/uL (130-400) 06/14/24 10:48
eGFR > 60.00 06/14/24 09:09
Ttm-H-Ryerjzarwgv Pept 219 pg/ml 06/08/24 23:58
Albumin 3.1 g/dl (3.5-5.0) L 06/08/24 15:48
Laboratory Tests
05/09/23
10:58
Sodium 136
Laboratory Tests
06/14/24
06:30
Urine Osmolality 513
Urine Sodium [address] chest on 06/10/2024
IMPRESSION:
There is mild elevation of the left hemidiaphragm with left greater than right bibasilar atelectasis/scarring. There is no evidence of pneumonia or pulmonary edema.
Small hiatal hernia.
Chronic compression deformities of the T7 and T10 vertebral bodies with mild loss of height of the T7 vertebral body and moderate loss of height of the T10 vertebral body.
Physical Exam
Patient is awake alert oriented and in no distress. Mood and affect were pleasant, insight and judgment were good. Pupils are equal round and reactive to light, extraocular movements are intact, sclera were anicteric. Hearing was normal, ears and
nose are intact. Oropharynx was clear. Neck was supple with trachea midline and no thyromegaly. Heart was regular rate and rhythm without rubs. Lower extremities without edema. Lungs were coarse to auscultation bilaterally and with normal
excursion. Abdomen was soft, nontender, with normal active bowel sounds, and no hepatosplenomegaly. Skin was without rash and with normal turgor.
Data Reviewed
-
Radiology: Image Personally Visualized and interpreted (Chest x-ray on 06/08/2024 by my reading shows left hemidiaphragm elevation, basilar opacities)
Medical Tests (Nuc Med, Echo etc): Image Personally Visualized and interpreted (EKG on 06/11/2024 by my reading shows normal sinus rhythm inferior Q) and Report Reviewed by me (Echocardiogram on 06/11/2024 shows ejection fraction 60% moderate AR)
Labs: Labs Reviewed by me
Old Records: Reviewed
Assessment/Plan
-
Impression:
Acute hypoxic respiratory insufficiency
chronic home oxygen
Mental status change
asthma
COPD
Hyponatremia
Diabetes mellitus type II
Fibromyalgia
GERD/PUD
Anemia
Paroxysmal atrial fibrillation
Plan/recommendations
She has excess ADH. She would benefit from Samsca but her mental status change precludes this.
We will start 3% saline
Serial BMP
Fluid restriction though her oral intake is currently poor and she is not drinking very much anyways
Discussed with son at bedside
Mental status may improve somewhat with improvement of sodium though I suspect that this is only a minor component.
[2024-06-14 13:37] LABS: Glucose - Point of Care 97 mg/dl (70-99)
[2024-06-14] MEDS: SODIUM CHLORIDE 3% 250 IV (13:43)
--- NOTE | 2024-06-14 14:03 | CON.NEURO ---
Neuro Assessment/Plan
Assessment
somnolent, intermittent agitation
suspect toxic metabolic encephalopathy
Plan
check brain MRI and routine EEG
Consultation
Order
Date of Consultation: 06/14/24
Requesting Provider: Donovan Duffy
Reason for Consult: AMS
Subjective/Objective
Subjective Data
Date of Service: June 14, 2024
Patient is an 84y F with PMH significant for COPD, chronic hypoxemia, DM-II, fibromyalgia and anxiety / depression who presents to ED for evaluation of cough, SOB and fatigue. She was admitted 06/09 for toxic metabolic encephalopathy, COPD,
treated with steroids. She remains somnolent. at times, agitated and suspected steroid psychosis.
Objective Data
Vital Signs
Temp Pulse Resp BP Pulse Ox
36.3 C 96 20 173/79 97
06/14/24 11:55 06/14/24 11:55 06/14/24 11:55 06/14/24 11:55 06/14/24 11:55
Lab Results
06/14/24 10:48
Sodium 126 mmol/L (135-145) L 06/14/24 09:09
Potassium 4.0 mmol/L (3.5-5.1) 06/14/24 09:09
BUN 6 mg/dl (7-17) L 06/14/24 09:09
Glucose 111 mg/dl (70-99) H 06/14/24 09:09
Calcium 8.6 mg/dl (8.4-10.2) 06/14/24 09:09
Rxs-C-Jpakhwvobkf Pept 219 pg/ml 06/08/24 23:58
Vitamin B12 902 pg/ml (239-931) 06/09/24 06:56
Patient Allergies
amoxicillin trihydrate [From Augmentin] Allergy (Verified 06/08/24 15:35)
Nausea / Vomiting
clarithromycin [From Biaxin] Allergy (Verified 06/08/24 15:35)
Nausea / Vomiting
clindamycin Allergy (Verified 06/08/24 15:35)
Nausea / Vomiting
diazepam Allergy (Verified 06/08/24 15:35)
HEADACHE
fentanyl Allergy (Verified 06/08/24 15:35)
hallucination
hydromorphone HCl [From Dilaudid] Allergy (Verified 06/08/24 15:35)
Itching
Iodinated Contrast Media [IV Dye, Iodine Containing Contrast ] Allergy (Verified 06/08/24 15:35)
Tongue Swelling
iodine [Iodine] Allergy (Verified 06/08/24 15:35)
Itchy Rash
levofloxacin [From Levaquin] Allergy (Verified 06/08/24 15:35)
REDNESS AND ITCHING AT IV SITE
methylprednisolone [From Medrol] Allergy (Verified 06/08/24 15:35)
HEADACHE
morphine [Morphine] Allergy (Verified 06/08/24 15:35)
SEVERE ITCH,RED RASH
potassium clavulanate [From Augmentin] Allergy (Verified 06/08/24 15:35)
Nausea / Vomiting
STEROIDS Allergy (Uncoded 06/08/24 15:35)
MIGRAINES
Physical Exam
-
somnolent,
opens eyes to noxious stim
does not follow commands
localize and withdraw, 'ow' x4 to nox stim
DTR 1+
Medications
-
Active Medications
Generic Name Dose Route Start Last Admin
Trade Name Freq PRN Reason Stop Dose Admin
Acetaminophen 650 mg 06/09/24 01:38 06/11/24 09:50
Acetaminophen 325 Mg Tablet PO 07/07/24 01:37 650 mg
Q4HPRN PRN Administration
Mild Pain / Temp > 101
Albuterol Sulfate 2.5 mg 06/09/24 01:38 06/10/24 00:56
Albuterol Nebs 2.5 Mg/3 Ml Ampul INH 2.5 mg
R Q4HPRN PRN Administration
SOB
Protocol
Apixaban 5 mg 06/09/24 08:00 06/14/24 09:50
Apixaban (Eliquis) 5 Mg Tablet PO 07/07/24 07:59 Not Given
BID NORMA
Atorvastatin Calcium 10 mg 06/09/24 08:00 06/14/24 09:50
Atorvastatin (Lipitor) 10 Mg Tablet PO 07/07/24 07:59 Not Given
DAILY NORMA
Benzonatate 200 mg 06/09/24 03:14 06/11/24 13:45
Benzonatate 100 Mg Capsule PO 07/07/24 03:13 200 mg
TID PRN Administration
Cough
Dextrose 12.5 grams 06/09/24 01:38
Dextrose 50% (0.5 Grams/Ml) 50 Ml Syringe IV 07/07/24 01:37
[id number] PRN
hypoglycemia
Protocol
Duloxetine HCl 60 mg 06/09/24 08:00 06/14/24 09:50
Duloxetine Delayed Release 60 Mg Capsule PO 07/07/24 07:59 Not Given
BID NORMA
Famotidine 40 mg 06/09/24 22:00 06/13/24 22:03
Famotidine 40 Mg Tablet PO 07/07/24 21:59 Not Given
HS NORMA
Fluticasone Propionate 2 puff 06/09/24 08:00 06/14/24 08:37
Fluticasone 110mcg Inhaler INH 07/07/24 07:59 Not Given
R BID NORMA
Glucagon 1 mg 06/09/24 01:38
Glucagon 1 Mg Vial IM 07/07/24 01:37
PRN PRN
hypoglycemia
Protocol
Hydralazine HCl 5 mg 06/14/24 09:21 06/14/24 10:01
Hydralazine 20 Mg/Ml Vial IV 07/12/24 09:20 5 mg
Q6HPRN PRN Administration
SBP>160
Insulin Glargine 8 units/ 0.08 mls @ 0 mls/hr 06/13/24 12:33 06/14/24 00:06
Device SC 07/07/24 21:59 Not Given
HS NORMA
As Directed
Sodium Chloride 250 mls @ 30 mls/hr 06/14/24 13:24 06/14/24 13:43
Sodium Chloride 3% IV 06/14/24 21:43 250 mls
ONCE ONE Administration
Insulin Aspart 0 units 06/09/24 07:30 06/14/24 13:41
Insulin Aspart Low Resistance 300 Units/3 Ml Pen.Injctr SC 07/07/24 07:29 Not Given
AC NORMA
Protocol
Lidocaine 1 patch 06/12/24 01:45 06/14/24 09:54
Lidocaine 4% Topical Patch TOPICAL 07/10/24 01:44 1 patch
DAILY NORMA Administration
Protocol
Losartan Potassium 25 mg 06/11/24 14:00 06/14/24 09:50
Losartan 25 Mg Tablet PO 07/09/24 13:59 Not Given
DAILY NORMA
Metoprolol Succinate 25 mg 06/09/24 08:00 06/14/24 09:50
Metoprolol 25 Mg Extended Release Tablet PO 07/07/24 07:59 Not Given
DAILY NORMA
Nortriptyline HCl 10 mg 06/14/24 22:00
Nortriptyline 10 Mg Capsule PO 07/12/24 21:59
HS NORMA
Ondansetron HCl 4 mg 06/10/24 17:16 06/11/24 22:55
Ondansetron 4 Mg/2 Ml Vial IV 07/08/24 17:15 4 mg
Q6HPRN PRN Administration
NAUSEA/VOMITING
Oxycodone HCl 5 mg 06/11/24 10:21 06/11/24 23:19
Oxycodone 5 Mg Regular Release Tablet PO 06/25/24 10:20 5 mg
TIDPRN PRN Administration
moderate to severe pain
Pantoprazole Sodium 40 mg 06/09/24 08:00 06/14/24 09:50
Pantoprazole 40 Mg Delayed Release Tablet PO 07/07/24 07:59 Not Given
DAILY NORMA
Polyethylene Glycol 17 grams 06/12/24 10:00 06/14/24 09:50
Polyethylene Glycol Powder 17 Grams Packet PO 07/10/24 09:59 Not Given
DAILY NORMA
Sodium Chloride 0 flush 06/09/24 04:00 06/10/24 17:56
Sodium Chloride 0.9% (Flush) Syringe IV 07/07/24 03:59 2 flush
PER PROTOCOL NORMA Administration
Vitamin C/Vitamin E 1 cap 06/09/24 08:00 06/14/24 09:50
Vit C/Vit E/Lutein/Min/Merced-3 (Ocuvite) Capsule PO 07/07/24 07:59 Not Given
BID NORMA
Home Medications
�Medication �Instructions �Recorded
mcofm-2n-gbv-epa-fish oil 120 1,200 mg PO DAILY Supplement 07/07/15
mg-180 mg-60 mg-1,200 mg capsule,
DR (Fish Oil)
pantoprazole 40 mg tablet,delayed 40 mg PO DAILY gastric erosions 05/28/18
release
vitamins A,C,N-jywe-tubumt 4,296 1 cap PO BID Supplement 05/28/18
mcg-226 mg-90 mg capsule
(PreserVision AREDS)
atorvastatin 10 mg tablet 10 mg PO DAILY High cholesterol 05/08/21
dicyclomine 10 mg capsule 10 mg PO BIDPRN PRN cramping 05/08/21
duloxetine 60 mg capsule,delayed 60 mg PO BID DEPRESSION/PAIN 05/08/21
release
insulin aspart U-100 100 unit/mL 8 units SC AC Diabetes 05/08/21
(3 mL) subcutaneous pen (Novolog
FlexPen U-100 Insulin aspart)
albuterol sulfate 90 mcg/actuation 2 puff inhalation R Q6HPRN PRN SOB 08/12/22
aerosol inhaler (Ventolin HFA)
montelukast 10 mg tablet 10 mg PO HS Lung/Breathing Issues 08/12/22
nortriptyline 50 mg capsule 50 mg PO HS Mental Health/Anxiety 08/12/22
benzonatate 200 mg capsule 200 mg PO TID Cough 08/16/22
cholecalciferol (vitamin D3) 50 50 mcg PO DAILY Supplement 05/10/23
mcg (2,000 unit) tablet (Vitamin
D3)
docusate sodium 100 mg capsule 100 mg PO NOON STOOL SOFTENER 05/10/23
(Colace)
insulin degludec 100 unit/mL (3 15 unit SC HS Diabetes 05/10/23
mL) subcutaneous pen (Tresiba
FlexTouch U-100 insulin)
ramelteon 8 mg tablet 8 mg PO HS 05/10/23
apixaban 5 mg tablet (Eliquis) 5 mg PO BID Blood Clot 06/08/24
Prevention/Tx
calcium carbonate (Calcium 600) 600 mg PO BID Supplement 06/08/24
famotidine 40 mg tablet 40 mg PO HS Gastrointestinal Issue 06/08/24
fluticasone furoate 200 1 inh inhalation R HS 06/08/24
mcg/actuation blister powder for Lung/Breathing Issues
inhalation (Arnuity Ellipta)
fluticasone propionate 50 1 spray intranasal HS NASAL 06/08/24
mcg/actuation nasal CONGESTION
spray,suspension
ipratropium 0.5 mg-albuterol 3 mg 3 ml inhalation R TIDPRN PRN sob 06/08/24
(2.5 mg base)/3 mL nebulization
soln
lidocaine 4 % topical cream 1 applic topical BID R knee 06/08/24
losartan 25 mg tablet 25 mg PO DAILY Blood Pressure 06/08/24
metoprolol succinate 25 mg 25 mg PO DAILY Blood Pressure 06/08/24
tablet,extended release 24 hr
nystatin 100,000 unit/gram topical 1 applic topical BID abd folds, 06/08/24
powder groin, chest
polyethylene glycol 3350 17 gram 17 g PO DAILYPRN PRN constipation 06/08/24
oral powder packet (Miralax)
psyllium 1 packet PO DAILY Gastrointestinal 06/08/24
Issue
--- NOTE | 2024-06-14 14:17 | CM ---
Chart reviewed for d/c planning. Cont 2L O2.
Pt currently still confused. Neurology to evaluate
Monitor mental status
Plan: Home w/ HH if agreeable
[2024-06-14 14:35] LABS: Venous Blood Gas B.E. 0.5 mmol/L (-4 to +4); Venous Blood Gas HCO3 25.4 mmol/L (22-27); Venous Blood Gas O2 Sat % 93.1 %; Venous Blood Gas pCO2 41 mmHg (35-48); Venous Blood Gas pO2 65 mmHg (30-50)
--- NOTE | 2024-06-14 16:27 | EEG.RPT ---
Electroencephalogram Report
Recording
Date of EE06/14/24
Type of EEG: Routine
Length of EEG recordin mins
Done with Video Recording: Yes
Patient Status: Inpatient
Recording Conditions: Awake and Confused
Hyperventilation Performed: No
Photic Stimulation Performed: Yes
Report
Background: continuous generalized slowing, polymorphic delta activity, symmetric and reactive
Sleep: none
Focal/rhythmic/epileptiform: triphasic waves, 1.5-2 per second
Seizures: none
Photic stim: no background change
Impression: continuous generalized slowing, triphasic waves
Clinical Correlation: moderate generalized cerebral dysfunction due to toxic, metabolic, or infectious etiology
[2024-06-14 17:51] LABS: Glucose - Point of Care 93 mg/dl (70-99)
[2024-06-14 21:27] LABS: Blood Urea Nitrogen 6 mg/dl (7-17); Calcium 8.2 mg/dl (8.4-10.2); Carbon Dioxide 23 mmol/L (22-30); Chloride 103 mmol/L (98-107); Estimated Creatinine Clearance 74 ml/min; Glucose 105 mg/dl (70-99); Potassium 4.1 mmol/L (3.5-5.1); Sodium 137 mmol/L (135-145); eGFR > 60.00
[2024-06-14] MEDS: PEPCID PO (21:57)
[2024-06-14] MEDS: PAMELOR PO (21:57)
[2024-06-14 22:03] LABS: Glucose - Point of Care 108 mg/dl (70-99)
--- NOTE | 2024-06-14 23:21 | PTCARENOTE ---
pt blood sugar 108 at 2200. PUBLIC HEALTH CLINICAL NURSE SPECIALIST made aware of results and poor PO intake. PUBLIC HEALTH CLINICAL NURSE SPECIALIST ordered to hold scheduled 8 units of Lantus. will continue to monitor.
[2024-06-15] MEDS: D5W 1000 IV (00:51)
[2024-06-15 02:07] LABS: Urine Albumin Trace (Neg - Trace); Urine Bilirubin Negative (Negative); Urine Character Clear (Clear); Urine Color Yellow; Urine Glucose Negative (Negative); Urine Ketone 3+ (Negative); Urine Leukocyte 1+ (Negative); Urine Nitrite Negative (Negative); Urine Occult Blood Negative (Negative); Urine Specific Gravity 1.025 (<1.030); Urine Urobilinogen Negative (Neg - 1+)
[2024-06-15 03:08] LABS: Urine Squamous Cell >30 /LPF (Few)
[2024-06-15 03:09] LABS: Urine Amorphous Seen; Urine Urothelial Cell >30 /LPF (FEW); Urine Yeast Many (Negative)
[2024-06-15 03:11] LABS: Urine White Cell >100 /HPF (0-5)
[2024-06-15 03:12] LABS: Urine Bacteria Moderate (Negative)
[2024-06-15 03:15] LABS: Glucose - Point of Care 102 mg/dl (70-99)
[2024-06-15 03:16] LABS: Urine Red Blood Cell 0-2 /HPF (0-2)
[2024-06-15 03:39] VITALS: BP 155/83
[2024-06-15 06:00] VITALS: BMI 39.9
[2024-06-15] MEDS: FLOVENT 110 MCG INHALER INH ×2 (07:20→20:48)
[2024-06-15 07:55] VITALS: BP 162/87
[2024-06-15 08:02] LABS: Glucose - Point of Care 130 mg/dl (70-99)
--- NOTE | 2024-06-15 08:20 | W.PN.PUL3 ---
Today's Communication / Plan
-
Resume arnuity upon discharge - she is refusing nebs, flovent, vest and 3%
Awaiting DC home with home health
Avoid sedatives
Sleep apnea/obesity hypoventilation can be readdressed in the outpatient setting
Patient is refusing her inhaled steroids, and her nebulizers that I have ordered. She says that her breathing is well and is currently breathing comfortably on 2 L/min nasal cannula. Recommend to check an ambulatory pulse oximetry prior to
discharge to reassess O2 requirements for outpatient use. We will see her in the office.
No additional recommendations at this time. Pulmonary service will now sign off. Please reconsult if there are any additional questions/concerns, or if patient's respiratory status deteriorates.
Assessment
-
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 We are
asked to comment on pulmonary process
Impression:
Acute hypoxic respiratory insufficiency
On chronic home oxygen
URI symptoms, cough/wheeze
Subjective dyspnea, progressive
Fatigue, TME
History of asthma with acute exacerbation
History of tracheobronchomalacia per records (mentioned on CT chest from May 2018)
Anemia
Elevated right hemidiaphragm, right perihilar process
Conditions present prior to admission
History of renal insufficiency
Diabetes
Fibromyalgia
GERD/PUD
Anemia
Paroxysmal atrial fibrillation
On anticoagulation
History of falls
Plan/recommendations
At this time, patient appears to be comfortable but has multiple chronic comorbidities.
Unfortunate I suspect her symptoms are multifactorial
Salient features include upper airway wheeze with history of tracheomalacia. Patient also with sleep apnea noncompliant with CPAP. She does use oxygen therapy at home
Patient does describe some vague right-sided chest discomfort
CT chest 06/10/2024 reveals evidence of bronchial airway thickening, mild bronchiectasis and pleural thickening per my review
Plan:
For now we will continue with supportive care.
She was refusing her nebs so they were stopped; continue flovent (usually on Arnuity Ellipta and Singulair in the outpatient setting) - pt refusing this as well
Not bronchospastic on exam. Reports chronic shortness of breath.
She has taken prednisone before and says that she usually improves very well to this. Was On prednisone taper on 06/11/2024 , but developed confusion and this is likely due to steroids --> steroids have been discontinued.
Refused nebulized 3% NS with vest therapy --> both DC'd
She was recommended to take maintenance inhaler therapy as outpatient but has been unable to afford
Unable to get with contrast given allergy and it appears that she is off the Eliquis however she states she is taking it and this was confirmed with her
Continue Eliquis (resumed on 06/09/2024)
Outpatient records suggest she was on anticoagulation for 6 months stopped in June 2023 per jacquard plate maker (Jamila)
VBG reviewed. Likely compensated mild hypercapnia
VBG performed this morning shows pH 7.4 and pCO2 41
Patient was coached on breathing techniques.
Unfortunately, without treatment of CPAP, she will continue to have chronic recurrent bronchitis symptoms.
Patient states she was told she does not have sleep apnea
Given her altered mental status would avoid CPAP currently until cognition improves
This can be addressed again as outpatient as needed
Neurology was consulted due to confusion. EEG performed on 06/14/2023 shows generalized slowing with broad differential (toxic, metabolic or infectious)
- Patient is much more oriented today and almost back to baseline; continue to monitor; neuro recs appreciated
Disposition efforts
Patient is refusing her inhaled steroids, and her nebulizers that I have ordered. She says that her breathing is well and is currently breathing comfortably on 2 L/min nasal cannula. Recommend to check an ambulatory pulse oximetry prior to
discharge to reassess O2 requirements for outpatient use. We will see her in the office.
No additional recommendations at this time. Pulmonary service will now sign off. Thank you for allowing us to be involved in the care of this patient. Please reconsult if there are any additional questions/concerns, or if patient's respiratory
status deteriorates.
Total time spent today was 36 minutes for this encounter. Time includes reviewing laboratory test/imaging results, reviewing pertinent medical records, obtaining and reviewing medical history, performing an appropriate exam, ordering medications,
tests and procedures. Time also includes documentation of this encounter, coordinating patient care and communicating with other healthcare professionals. Total time does not include separately billed tests performed on this date of service.
Subjective Data
-
Date of Service:
Date of Service: June 15, 2024
Chief Complaint: Pulmonary Follow Up
Subjective:
Patient was seen and evaluated today at bedside. , as well as her daughter (Sylvia) at bedside and all questions were answered. Today the patient is much more with it and less confused. She says that her breathing is much better today. Has
an occasional dry cough. Denies ACOSTA, Tanvir pain, nausea, fevers or chills.
Review of Systems
General: Other (Negative unless mentioned above)
Objective Data
Data Reviewed
Vital Signs / I&O / Oxygen:
Vital Signs
Temp Pulse Resp BP Pulse Ox
98 F 101 20 162/87 100
06/15/24 07:55 06/15/24 07:55 06/15/24 07:55 06/15/24 07:55 06/15/24 07:55
Intake and Output
06/14/24 06/15/24 06/16/24
06:59 06:59 06:59
Intake Total 420 / 420 540 / 540
Output Total 980 / 980
Balance 420 / 420 -440 / -440
SaO2 100
Nasal Cannula flow liters per 2
minute
Physical Exam
General: Respiratory Distress (negative), Comfortable, Chills (n), Sweats (n) and Other (Large neck, narrow posterior oropharynx)
HEENT: Normocephalic and Anicteric
Cardiovascular: S1-S2, Murmur (n), Rub (n) and Peripheral Edema (n)
Respiratory: Wheeze (negative), Crackles (Few at bases), Rhonchi (n), Non-Labored Respirations and Other (Coarse breath sounds heard bilaterally)
GI: Soft, Non Distended (Morbidly obese) and Non Tender
Neurology: Awake, Alert, No Motor Deficits (Requires assistance to sit up) and Tremors (negative)
Skin: Warm, Dry, Jaundice (n) and Rash (n)
Labs/Micro/Reports
Lab Data
06/15/24 08:36
[2024-06-15 09:11] LABS: % Basophils 0.3 % (0-2); % Eosinophils 1.1 % (0-6); % Immature Granulocytes 0.7 % (0-0.5); % Lymphocytes 12.1 % (20.5-51.1); % Monocytes 7.9 % (1.7-9.3); % Neutrophils 77.9 % (42.2-75.2); Absolute Eosinophils 0.1 10^3/uL (0-0.7); Absolute Immature Granulocytes 0.1 10^3/uL (0-0.05); Absolute Lymphocytes 1.6 10^3/uL (1.2-3.4); Absolute Monocytes 1.1 10^3/uL (0.1-0.6); Absolute Neutrophils 10.4 10^3/uL (1.4-6.5); Hematocrit 33.7 % (37.0-47.0); Hemoglobin 11.3 g/dL (12.0-16.0); Mean Corp Hgb Conc. 33.5 g/dL (33.0-37.0); Mean Corpuscular Hgb 29.3 pg (27.0-31.0); Mean Corpuscular Volume 87.3 fL (81.0-99.0); Mean Platelet Volume 9.8 fL (7.4-10.4); Nucleated Red Blood Cells % 0 %; Platelet Count 334 10^3/uL (130-400); Red Blood Cell Count 3.86 10^6/uL (4.20-5.40); Red Cell Dist. Width 15.9 % (11.5-14.5); White Blood Cell Count 13.3 10^3/uL (4.8-10.8)
[2024-06-15] MEDS: NOVOLOG FLEXPEN-LOW RESISTANCE SC ×3 (10:04→17:32)
[2024-06-15] MEDS: ELIQUIS 5 MG PO ×2 (10:13→21:30)
[2024-06-15] MEDS: TOPROL XL 25 MG PO (10:14)
[2024-06-15] MEDS: COZAAR 25 MG PO (10:15)
[2024-06-15] MEDS: LIPITOR PO (10:16)
[2024-06-15] MEDS: OCUVITE SOFTGEL PO ×2 (10:16→21:02)
[2024-06-15] MEDS: CYMBALTA DELAYED RELEASE PO (10:16)
[2024-06-15] MEDS: MIRALAX PO (10:16)
[2024-06-15] MEDS: LIDOCAINE 4% PATCH TOPICAL (10:16)
[2024-06-15] MEDS: PROTONIX PO (10:16)
--- NOTE | 2024-06-15 10:26 | PTCARENOTE ---
Patient with noted pocketed of pills this am and garbled speech. Speech therapist notified in change since last evaluation. Miguel Ángel napier. Speech to see patient for re evaluation.
[2024-06-15 10:28] LABS: Blood Urea Nitrogen 5 mg/dl (7-17); Calcium 8.6 mg/dl (8.4-10.2); Carbon Dioxide 22 mmol/L (22-30); Chloride 92 mmol/L (98-107); Estimated Creatinine Clearance 73 ml/min; Glucose 169 mg/dl (70-99); Potassium 4.1 mmol/L (3.5-5.1); Sodium 127 mmol/L (135-145); eGFR > 60.00
[2024-06-15 10:37] LABS: Urine Albumin Trace (Neg - Trace); Urine Bilirubin Negative (Negative); Urine Character Clear (Clear); Urine Color Yellow; Urine Glucose Negative (Negative); Urine Ketone 3+ (Negative); Urine Leukocyte 1+ (Negative); Urine Nitrite Negative (Negative); Urine Occult Blood Negative (Negative); Urine Specific Gravity 1.025 (<1.030); Urine Urobilinogen Negative (Neg - 1+)
[2024-06-15 10:48] LABS: Urine Yeast Many (Negative)
[2024-06-15 10:49] LABS: Urine White Cell 70-80 /HPF (0-5)
[2024-06-15 10:50] LABS: Urine Bacteria Few (Negative)
[2024-06-15 10:51] LABS: Urine Red Blood Cell 0-2 /HPF (0-2)
[2024-06-15 11:41] LABS: Glucose - Point of Care 134 mg/dl (70-99)
[2024-06-15 12:27] LABS: Glucose - Point of Care 141 mg/dl (70-99)
--- NOTE | 2024-06-15 12:31 | PTOTSP ---
Speech Therapy: Language Assessment and Swallowing Reassessment
Patient had difficulty attending to tasks with auditory and visual distractions in room. Overall processing slow and she was inconsistent in following simple directions and answering simple yes/no questions. No lingual/labial/facial weakness
appreciated though speech sounded dysarthric.
Patient is at risk for aspiration given overt difficulty with oral acceptance and oral processing combined with current cognitive status. She tolerated sips of thin liquids by straw without overt signs of aspiration.
Recommend
1. Modified NPO allowing only liquids with supervision.
2. Meds crushed and placed in thinned applesauce or thickened liquid.
3. Oral care at least 3/daily.
4. ST will reassess daily as cognitive status is suspected related to recent steroid
--- NOTE | 2024-06-15 13:05 | W.PN.NEPH.PH ---
Today's Communication / Plan
-
repeat labs and likely retrial hypertonic at low rate and frequent labs
Assessment/Plan
-
Impression:
Acute hypoxic respiratory insufficiency
chronic home oxygen
Mental status change
asthma
COPD
Hyponatremia
Diabetes mellitus type II
Fibromyalgia
GERD/PUD
Anemia
Paroxysmal atrial fibrillation
Plan/recommendations
She has excess ADH. She would benefit from Samsca but her mental status change precludes this.
note she is on high dose of Duloxetine
sodium over corrected with 3% saline overnight and now down to 127 with D5W
will d/c D5w, labs later today
Fluid restriction though her oral intake is currently poor and she is not drinking very much anyways
Mental status may improve somewhat with improvement of sodium though I suspect that this is only a minor component.
-
-
Date of Service: June 15, 2024
CC / HPI / ROS
-
Chief Complaint:
hyponatremia
History of Present Illness:
sodium was up at 137 with 3%, now down to 127 with D5w
Bp high-stable
non oliguric
wt decreasing
Review of Systems:
confused and unable to provide history
Oriented to self and place
Labs
-
Labs:
WBC 13.3 10^3/uL (4.8-10.8) H 06/15/24 08:36
RBC 3.86 10^6/uL (4.20-5.40) L 06/15/24 08:36
Hgb 11.3 g/dL (12.0-16.0) L 06/15/24 08:36
Hct 33.7 % (37.0-47.0) L 06/15/24 08:36
Plt Count 334 10^3/uL (130-400) 06/15/24 08:36
Sodium 127 mmol/L (135-145) L D 06/15/24 08:36
Potassium 4.1 mmol/L (3.5-5.1) 06/15/24 08:36
Chloride 92 mmol/L (98-107) L 06/15/24 08:36
Carbon Dioxide 22 mmol/L (22-30) 06/15/24 08:36
BUN 5 mg/dl (7-17) L 06/15/24 08:36
Creatinine 0.6 mg/dL (0.6-1.0) 06/15/24 08:36
eGFR > 60.00 06/15/24 08:36
Glucose 169 mg/dl (70-99) H 06/15/24 08:36
Calcium 8.6 mg/dl (8.4-10.2) 06/15/24 08:36
Fph-H-Podsxjflblu Pept 219 pg/ml 06/08/24 23:58
Albumin 3.1 g/dl (3.5-5.0) L 06/08/24 15:48
Physical Exam
-
Vital Signs:
Vital Signs
Temp Pulse Resp BP Pulse Ox
98 F 101 20 162/87 98
06/15/24 07:55 06/15/24 07:55 06/15/24 07:55 06/15/24 07:55 06/15/24 11:16
Cardiovascular:: Regular rate and rhythm
Respiratory:: Bilateral: CTA
Lung Excursion:: Normal
Abdomen:: Nontender and Soft
Extremity Edema:: None: Bilateral:
Reece Catheter: No
[2024-06-15 14:06] LABS: Blood Urea Nitrogen 6 mg/dl (7-17); Calcium 8.6 mg/dl (8.4-10.2); Carbon Dioxide 22 mmol/L (22-30); Chloride 94 mmol/L (98-107); Estimated Creatinine Clearance 73 ml/min; Glucose 148 mg/dl (70-99); Potassium 3.9 mmol/L (3.5-5.1); Sodium 128 mmol/L (135-145); eGFR > 60.00
--- NOTE | 2024-06-15 14:57 | W.PN.HOSP.TC ---
Today's Communication/Plan
-
Monitor vital signs see plan
MRI when able
N.p.o. for now per speech
Monitor mental status closely
Monitor sodium
Assessment / Plan
Assessment / Plan
84y F with PMH significant for COPD, chronic hypoxemia and chronic pain syndrome / fibromyalgia who presents to ED for evaluation of cough, dyspnea and fatigue.
Gen: NAD, awake
Eyes: EOMI, PERRLA, no scleral icterus.
Neck: supple.
CV: remains RRR, +S1/S2, no m/r/g.
Resp: CTAB anteriorly
Abd: remains +BS, soft, NT, ND
Skin: No rashes. 2+ B/L LE edema
Neuro: confused
CXR: mild elevation of the left hemidiaphragm with left greater than right bibasilar opacities favored to represent chronic atelectasis/scarring.
Acute toxic metabolic encephalopathy suspect likely secondary to TME from medications and possible now acute psychosis from steroids
-Patient is agitated at times; steroids now stopped
-VBG 06/09/AM 7.36/58/107
Check VBG noted, chest x-ray without pneumonia
UA suggestive of UTI
-holding sedating meds
-currently saturating well on 2L NC O2
-TSH/B12 normals
hx of CVA;check CT head without CVA. Unable to do MRI since patient is not following commands. EEG noted per neurology. Neurology following.
Speech recommended n.p.o. for now given mental status. Meds in pur�e.
UTI
Start ceftriaxone
Monitor
hyponatremia
monitor
Fluid restriction
Nephrology following. Status post 3% saline however sodium went up, then was started on D5 which is now stopped.
SOB:
Chronic hypoxic respiratory failure, on 2 L nasal cannula
-underlying asthma however now does not suspect acute exacerbation
-History of tracheomalacia
-underlying morbid Obesity due to excess calories as well as sedentary lifestyle, very likely FAITH/OHS (suspect primary etiology)
-CXR without PNA
-Acapella, IS
-pulm saw in c/s
-Pulmicort and DuoNebs ATC added
CT chest showed bibasilar atelectasis/scarring. Chronic compression deformity of T7 and T10.
-NC O2 support
Echo with preserved EF
Fibromyalgia
Chronic Pain Syndrome
Anxiety/Depression
-Holding sedating meds as noted above
Restart oxycodone however at 5 mg
Discussed with daughter, she also believes that patient is on a lot of medications that can be sedative. Continue to monitor closely
Normocytic Anemia
-No evident source of blood loss
monitor
Other problems:
DM2: a1c 7.1%, cont Lantus/SSI/accuchecks
Paroxysmal Atrial Fibrillation: cont BB/Eliquis
GERD/PUD: cont PPI
FULL/Eliquis
I spent a total of 51 minutes with the patient or on the floor. More than 50% of this time involved counseling and coordination of care.
Anticipated Discharge: > 48 hours
Subjective/Interval History
-
Date of Service: June 15, 2024
confused
Objective Data
-
Labs:
Laboratory Results
06/15/24 06/15/24
08:36 13:30
WBC 13.3 H
Hgb 11.3 L
Hct 33.7 L
Plt Count 334
Sodium 127 L D 128 L
Potassium 4.1 3.9
Chloride 92 L 94 L
Carbon Dioxide 22 22
BUN 5 L 6 L
Creatinine 0.6 0.5 L
Glucose 169 H 148 H
Calcium 8.6 8.6
Vital Signs:
Vital Signs
Temp Pulse Resp BP Pulse Ox
98 F 101 20 162/87 98
06/15/24 07:55 06/15/24 07:55 06/15/24 07:55 06/15/24 07:55 06/15/24 11:16
I&O
06/14/24 06/15/24 06/16/24
06:59 06:59 06:59
Intake Total 420 / 420 540 / 540 120 / 120
Output Total 980 / 980
Balance 420 / 420 -440 / -440 120 / 120
[2024-06-15 15:55] VITALS: BP 153/86
[2024-06-15 15:57] VITALS: BP 156/67; PULSE 99; O2SAT 99
[2024-06-15] MEDS: ROCEPHIN 1000 MG IV (16:26)
[2024-06-15] MEDS: STERILE WATER FOR INJECTION 10 ML IV (16:26)
[2024-06-15 16:59] LABS: Glucose - Point of Care 122 mg/dl (70-99)
[2024-06-15] MEDS: PAMELOR 10 MG PO (21:29)
[2024-06-15] MEDS: CYMBALTA DELAYED RELEASE 60 MG PO (21:30)
[2024-06-15] MEDS: PEPCID 40 MG PO (21:31)
--- NOTE | 2024-06-15 22:00 | PTCARENOTE ---
patient with blood sugar of 117 this evening at 2200. BRANCH LENDING MANAGER made aware, as pt has 8 units of Lantus scheduled HS. BRANCH LENDING MANAGER ordered to hold dose of Lantus as pt is NPO after speech eval today and altered mental status. will continue to monitor.
[2024-06-15 22:19] LABS: Glucose - Point of Care 117 mg/dl (70-99)
[2024-06-15] MEDS: SODIUM CHLORIDE 249.975 MEQ IV (22:21)
[2024-06-15 23:30] VITALS: BP 147/66
[2024-06-16] MEDS: TYLENOL 650 MG PO ×3 (03:44→19:05)
[2024-06-16 05:32] LABS: Glucose - Point of Care 103 mg/dl (70-99)
[2024-06-16 06:00] VITALS: BMI 39.4
[2024-06-16] MEDS: HYLENEX 150 UNITS SC (06:36)
[2024-06-16 06:46] LABS: % Basophils 0.6 % (0-2); % Eosinophils 2.2 % (0-6); % Immature Granulocytes 0.5 % (0-0.5); % Lymphocytes 17.2 % (20.5-51.1); % Monocytes 9.3 % (1.7-9.3); % Neutrophils 70.2 % (42.2-75.2); Absolute Basophils 0.1 10^3/uL (0-0.2); Absolute Eosinophils 0.2 10^3/uL (0-0.7); Absolute Immature Granulocytes 0.1 10^3/uL (0-0.05); Absolute Lymphocytes 1.8 10^3/uL (1.2-3.4); Absolute Neutrophils 7.5 10^3/uL (1.4-6.5); Hematocrit 31.7 % (37.0-47.0); Hemoglobin 10.4 g/dL (12.0-16.0); Mean Corp Hgb Conc. 32.8 g/dL (33.0-37.0); Mean Corpuscular Hgb 29.1 pg (27.0-31.0); Mean Corpuscular Volume 88.8 fL (81.0-99.0); Mean Platelet Volume 9.5 fL (7.4-10.4); Nucleated Red Blood Cells % 0 %; Platelet Count 335 10^3/uL (130-400); Red Blood Cell Count 3.57 10^6/uL (4.20-5.40); Red Cell Dist. Width 15.8 % (11.5-14.5); White Blood Cell Count 10.6 10^3/uL (4.8-10.8)
--- NOTE | 2024-06-16 06:47 | VATNOTE ---
Patient's R hand is swollen from wrist to fingers. Patient denies pain. R hand infiltrate with 2 % sodium, PIV removed and ML started in left arm. Infiltrate treated, see mar, hand elevated and cool compress applied per BEARING MACHINE OPERATOR. Primary RN at bedside.
Will continue to monitor.
[2024-06-16 07:15] LABS: Blood Urea Nitrogen 5 mg/dl (7-17); Calcium 8.2 mg/dl (8.4-10.2); Carbon Dioxide 25 mmol/L (22-30); Chloride 95 mmol/L (98-107); Estimated Creatinine Clearance 73 ml/min; Glucose 106 mg/dl (70-99); Potassium 3.7 mmol/L (3.5-5.1); Sodium 129 mmol/L (135-145); eGFR > 60.00
[2024-06-16 07:55] VITALS: BP 158/59
[2024-06-16] MEDS: FLOVENT 110 MCG INHALER 2 PUFF INH ×2 (08:23→20:18)
[2024-06-16 08:32] LABS: Glucose - Point of Care 107 mg/dl (70-99)
[2024-06-16] MEDS: NOVOLOG FLEXPEN-LOW RESISTANCE SC ×3 (09:11→17:32)
[2024-06-16] MEDS: TOPROL XL 25 MG PO (10:35)
[2024-06-16] MEDS: ELIQUIS 5 MG PO ×2 (10:35→19:50)
[2024-06-16] MEDS: COZAAR 25 MG PO (10:35)
[2024-06-16] MEDS: CYMBALTA DELAYED RELEASE PO (10:39)
[2024-06-16] MEDS: OCUVITE SOFTGEL PO (10:40)
[2024-06-16] MEDS: LIPITOR PO (10:40)
[2024-06-16] MEDS: MIRALAX PO (10:40)
[2024-06-16] MEDS: PROTONIX PO (10:40)
[2024-06-16] MEDS: LIDOCAINE 4% PATCH 1 PATCH TOPICAL (11:26)
[2024-06-16 12:25] LABS: Glucose - Point of Care 96 mg/dl (70-99)
--- NOTE | 2024-06-16 12:57 | W.PN.HOSP.TC ---
Today's Communication/Plan
-
Monitor vitals
See plan
Mental status improving slowly, speech to see today
MRI when able
cw abx
follow cx
Assessment / Plan
Assessment / Plan
84y F with PMH significant for COPD, chronic hypoxemia and chronic pain syndrome / fibromyalgia who presents to ED for evaluation of cough, dyspnea and fatigue.
Gen: NAD, awake
Eyes: EOMI, PERRLA, no scleral icterus.
Neck: supple.
CV: remains RRR, +S1/S2, no m/r/g.
Resp: CTAB anteriorly
Abd: remains +BS, soft, NT, ND
Skin: No rashes. 2+ B/L LE edema
Neuro: confused
CXR: mild elevation of the left hemidiaphragm with left greater than right bibasilar opacities favored to represent chronic atelectasis/scarring.
Acute toxic metabolic encephalopathy suspect likely secondary to TME from medications and possible now acute psychosis from steroids
-Patient is agitated at times; steroids now stopped
-VBG 06/09/24AM 7.36/58/107
Check VBG noted, chest x-ray without pneumonia
UA suggestive of UTI
-holding sedating meds
-currently saturating well on 2L NC O2
-TSH/B12 normals
hx of CVA;check CT head without CVA. Unable to do MRI since patient is not following commands. EEG noted per neurology. Neurology following.
Speech recommended n.p.o. for now given mental status. Meds in pur�e. Speech to reevaluate today as mental status is doing better
UTI
Started ceftriaxone
f/u cx
Monitor
hyponatremia
monitor
Fluid restriction
Nephrology following. Status post 3% saline however sodium went up, then was started on D5 which is now stopped.
SOB:
Chronic hypoxic respiratory failure, on 2 L nasal cannula
-underlying asthma however now does not suspect acute exacerbation
-History of tracheomalacia
-underlying morbid Obesity due to excess calories as well as sedentary lifestyle, very likely FAITH/OHS (suspect primary etiology)
-CXR without PNA
-Acapella, IS
-pulm saw in c/s
-Pulmicort and DuoNebs ATC added
CT chest showed bibasilar atelectasis/scarring. Chronic compression deformity of T7 and T10.
-NC O2 support
Echo with preserved EF
Fibromyalgia
Chronic Pain Syndrome
Anxiety/Depression
-Holding sedating meds as noted above
Restarted oxycodone however at 5 mg
low dose nortriptyline
Discussed with daughter, she also believes that patient is on a lot of medications that can be sedative. Continue to monitor closely
Normocytic Anemia
-No evident source of blood loss
monitor
Other problems:
DM2: a1c 7.1%, continue with Accu-Cheks.
Sliding scale. Decrease Lantus
Paroxysmal Atrial Fibrillation: cont BB/Eliquis
GERD/PUD: cont PPI
FULL/Eliquis
I spent a total of 51 minutes with the patient or on the floor. More than 50% of this time involved counseling and coordination of care.
Anticipated Discharge: > 48 hours
Subjective/Interval History
-
Date of Service: June 16, 2024
Slightly more awake and alert today
Objective Data
-
Labs:
Laboratory Results
06/16/24
06:23
WBC 10.6
Hgb 10.4 L
Hct 31.7 L
Plt Count 335
Sodium 129 L
Potassium 3.7
Chloride 95 L
Carbon Dioxide 25
BUN 5 L
Creatinine 0.5 L
Glucose 106 H
Calcium 8.2 L
Vital Signs:
Vital Signs
Temp Pulse Resp BP Pulse Ox
97.8 F 90 20 158/59 99
06/16/24 07:55 06/16/24 08:24 06/16/24 07:55 06/16/24 07:55 06/16/24 10:54
I&O
06/15/24 06/16/24 06/17/24
06:59 06:59 06:59
Intake Total 540 / 540 220 / 220
Output Total 980 / 980 525 / 525
Balance -440 / -440 -305 / -305
[2024-06-16 15:30] VITALS: BP 137/83
[2024-06-16] MEDS: ROCEPHIN 1000 MG IV (16:09)
[2024-06-16] MEDS: STERILE WATER FOR INJECTION 10 ML IV (16:09)
--- NOTE | 2024-06-16 16:30 | W.PN.NEPH.PH ---
Today's Communication / Plan
-
observe with FR
Assessment/Plan
-
Impression:
Acute hypoxic respiratory insufficiency
chronic home oxygen
Mental status change
asthma
COPD
Hyponatremia
Diabetes mellitus type II
Fibromyalgia
GERD/PUD
Anemia
Paroxysmal atrial fibrillation
Plan/recommendations
She has excess ADH. She would benefit from Samsca but her mental status change precludes this.
sodium is better to 129 post HTS
note she is on high dose of Duloxetine too
Fluid restriction though her oral intake is currently poor and she is not drinking very much anyways
Mental status better today, MRI when able
BP stable
-
-
Date of Service: June 16, 2024
CC / HPI / ROS
-
Chief Complaint:
hyponatremia
History of Present Illness:
sodium was up at 129 with 2%
Bp high-stable
non oliguric
wt decreasing
Review of Systems:
no c/o cp or sob
no n/v
feels well
Labs
-
Labs:
WBC 10.6 10^3/uL (4.8-10.8) 06/16/24 06:23
RBC 3.57 10^6/uL (4.20-5.40) L 06/16/24 06:23
Hgb 10.4 g/dL (12.0-16.0) L 06/16/24 06:23
Hct 31.7 % (37.0-47.0) L 06/16/24 06:23
Plt Count 335 10^3/uL (130-400) 06/16/24 06:23
Sodium 129 mmol/L (135-145) L 06/16/24 06:23
Potassium 3.7 mmol/L (3.5-5.1) 06/16/24 06:23
Chloride 95 mmol/L (98-107) L 06/16/24 06:23
Carbon Dioxide 25 mmol/L (22-30) 06/16/24 06:23
BUN 5 mg/dl (7-17) L 06/16/24 06:23
Creatinine 0.5 mg/dL (0.6-1.0) L 06/16/24 06:23
eGFR > 60.00 06/16/24 06:23
Glucose 106 mg/dl (70-99) H 06/16/24 06:23
Calcium 8.2 mg/dl (8.4-10.2) L 06/16/24 06:23
Huf-V-Ihzamcumsoj Pept 219 pg/ml 06/08/24 23:58
Albumin 3.1 g/dl (3.5-5.0) L 06/08/24 15:48
Physical Exam
-
Vital Signs:
Vital Signs
Temp Pulse Resp BP Pulse Ox
97.8 F 90 20 158/59 99
06/16/24 07:55 06/16/24 08:24 06/16/24 07:55 06/16/24 07:55 06/16/24 10:54
Cardiovascular:: Regular rate and rhythm
Respiratory:: Bilateral: CTA
Lung Excursion:: Normal
Abdomen:: Nontender and Soft
Extremity Edema:: None: Bilateral:
Reece Catheter: No
[2024-06-16 17:31] LABS: Glucose - Point of Care 100 mg/dl (70-99)
[2024-06-16] MEDS: OCUVITE SOFTGEL 1 CAP PO (19:50)
[2024-06-16] MEDS: CYMBALTA DELAYED RELEASE 60 MG PO (19:50)
[2024-06-16] MEDS: PAMELOR 10 MG PO (19:50)
[2024-06-16] MEDS: PEPCID 40 MG PO (19:51)
[2024-06-16 22:04] LABS: Glucose - Point of Care 105 mg/dl (70-99)
[2024-06-16] MEDS: LANTUS 0.03 UNITS SC (22:18)
[2024-06-16 23:55] VITALS: BP 153/62
[2024-06-17 03:26] LABS: Glucose - Point of Care 109 mg/dl (70-99)
[2024-06-17 06:00] VITALS: BMI 39.1
[2024-06-17 06:22] LABS: % Basophils 0.8 % (0-2); % Eosinophils 4.2 % (0-6); % Immature Granulocytes 0.4 % (0-0.5); % Lymphocytes 20.5 % (20.5-51.1); % Monocytes 10.8 % (1.7-9.3); % Neutrophils 63.3 % (42.2-75.2); Absolute Basophils 0.1 10^3/uL (0-0.2); Absolute Eosinophils 0.4 10^3/uL (0-0.7); Absolute Lymphocytes 1.7 10^3/uL (1.2-3.4); Absolute Monocytes 0.9 10^3/uL (0.1-0.6); Absolute Neutrophils 5.3 10^3/uL (1.4-6.5); Hematocrit 30.1 % (37.0-47.0); Hemoglobin 10.2 g/dL (12.0-16.0); Mean Corp Hgb Conc. 33.9 g/dL (33.0-37.0); Mean Corpuscular Hgb 29.7 pg (27.0-31.0); Mean Corpuscular Volume 87.5 fL (81.0-99.0); Mean Platelet Volume 9.7 fL (7.4-10.4); Nucleated Red Blood Cells % 0 %; Platelet Count 316 10^3/uL (130-400); Red Blood Cell Count 3.44 10^6/uL (4.20-5.40); Red Cell Dist. Width 15.4 % (11.5-14.5); White Blood Cell Count 8.4 10^3/uL (4.8-10.8)
[2024-06-17 06:47] LABS: Blood Urea Nitrogen 4 mg/dl (7-17); Calcium 8.1 mg/dl (8.4-10.2); Carbon Dioxide 29 mmol/L (22-30); Chloride 95 mmol/L (98-107); Estimated Creatinine Clearance 73 ml/min; Glucose 107 mg/dl (70-99); Potassium 3.6 mmol/L (3.5-5.1); Sodium 130 mmol/L (135-145); eGFR > 60.00
[2024-06-17 07:55] VITALS: BP 123/80
[2024-06-17] MEDS: NOVOLOG FLEXPEN-LOW RESISTANCE SC ×2 (08:21→13:29)
[2024-06-17 08:22] LABS: Glucose - Point of Care 111 mg/dl (70-99)
[2024-06-17] MEDS: FLOVENT 110 MCG INHALER INH ×2 (09:08→09:13)
[2024-06-17] MEDS: LIDOCAINE 4% PATCH 1 PATCH TOPICAL (10:01)
[2024-06-17] MEDS: OCUVITE SOFTGEL 1 CAP PO ×2 (10:10→21:24)
[2024-06-17] MEDS: CYMBALTA DELAYED RELEASE 60 MG PO ×2 (10:10→21:24)
[2024-06-17] MEDS: PROTONIX 40 MG PO (10:10)
[2024-06-17] MEDS: ELIQUIS 5 MG PO ×2 (10:10→21:24)
[2024-06-17] MEDS: COZAAR 25 MG PO (10:10)
[2024-06-17] MEDS: LIPITOR 10 MG PO (10:10)
[2024-06-17] MEDS: MIRALAX PO (10:11)
[2024-06-17] MEDS: TOPROL XL 25 MG PO (10:11)
[2024-06-17] MEDS: MIRALAX 17 GRAMS PO (10:15)
--- NOTE | 2024-06-17 11:27 | PTCARENOTE ---
follow up assessment of R hand infiltrate. no edema noted at this time, no pain elicited when assessed R hand. appears resolved. pt resting
[2024-06-17 12:46] LABS: Glucose - Point of Care 148 mg/dl (70-99)
--- NOTE | 2024-06-17 12:59 | W.PN.HOSP.TC ---
Today's Communication/Plan
-
Monitor vital signs see plan
MRI pending
If mental status does not improve likely will need LP
Mental status appears to be improving slowly
Continue with antibiotics
Hold sedating meds
Assessment / Plan
Assessment / Plan
84y F with PMH significant for COPD, chronic hypoxemia and chronic pain syndrome / fibromyalgia who presents to ED for evaluation of cough, dyspnea and fatigue.
Gen: NAD, awake
Eyes: EOMI, PERRLA, no scleral icterus.
Neck: supple.
CV: remains RRR, +S1/S2, no m/r/g.
Resp: CTAB anteriorly
Abd: remains +BS, soft, NT, ND
Skin: No rashes. 2+ B/L LE edema
Neuro: confused
CXR: mild elevation of the left hemidiaphragm with left greater than right bibasilar opacities favored to represent chronic atelectasis/scarring.
Acute toxic metabolic encephalopathy suspect likely secondary to TME from medications, possible now acute psychosis from steroids and UTI
-Patient is agitated at times; steroids now stopped
-VBG 06/09/24AM 7.36/58/107
Check VBG noted, chest x-ray without pneumonia
UA suggestive of UTI
-holding sedating meds
-currently saturating well on 2L NC O2
-TSH/B12 normals
hx of CVA;check CT head without CVA. Unable to do MRI since patient is not following commands. EEG noted per neurology. Neurology following. MRI pending. If mental status does not improve then likely will need LP
Speech following, now on pur�ed
UTI
Started ceftriaxone; given sx will treat for 3 days
urine cx
Monitor
hyponatremia
monitor
Fluid restriction
Nephrology following
SOB:
Chronic hypoxic respiratory failure, on 2 L nasal cannula
-underlying asthma however now does not suspect acute exacerbation
-History of tracheomalacia
-underlying morbid Obesity due to excess calories as well as sedentary lifestyle, very likely FAITH/OHS (suspect primary etiology)
-CXR without PNA
-Acapella, IS
-pulm saw in c/s
-Pulmicort and DuoNebs ATC added
CT chest showed bibasilar atelectasis/scarring. Chronic compression deformity of T7 and T10.
-NC O2 support
Echo with preserved EF
Fibromyalgia
Chronic Pain Syndrome
Anxiety/Depression
-Holding sedating meds as noted above
Restarted oxycodone however at 5 mg prn which she hasnt required since 06/11
hold nortriptyline
Discussed with daughter, she also believes that patient is on a lot of medications that can be sedative. Continue to monitor closely
Normocytic Anemia
-No evident source of blood loss
monitor
Other problems:
DM2: a1c 7.1%, continue with Accu-Cheks.
Sliding scale. Decrease Lantus
Paroxysmal Atrial Fibrillation: cont BB/Eliquis
GERD/PUD: cont PPI
FULL/Eliquis
I spent a total of 52 minutes with the patient or on the floor. More than 50% of this time involved counseling and coordination of care.
Anticipated Discharge: > 48 hours
Subjective/Interval History
-
Date of Service: June 17, 2024
denies pain
Objective Data
-
Labs:
Laboratory Results
06/17/24
05:40
WBC 8.4
Hgb 10.2 L
Hct 30.1 L
Plt Count 316
Sodium 130 L
Potassium 3.6
Chloride 95 L
Carbon Dioxide 29
BUN 4 L
Creatinine 0.4 L
Glucose 107 H
Calcium 8.1 L
Vital Signs:
Vital Signs
Temp Pulse Resp BP Pulse Ox
98.8 F 86 20 123/80 98
06/17/24 07:55 06/17/24 10:10 06/17/24 07:55 06/17/24 10:10 06/17/24 11:33
I&O
06/16/24 06/17/24 06/18/24
06:59 06:59 06:59
Intake Total 220 / 220 480 / 480 240 / 240
Output Total 525 / 525
Balance -305 / -305 480 / 480 240 / 240
[2024-06-17] MEDS: TYLENOL 650 MG PO ×2 (14:33→21:25)
[2024-06-17 15:30] VITALS: BP 137/57
--- NOTE | 2024-06-17 15:40 | W.PN.NEPH.PH ---
Today's Communication / Plan
-
observe
Assessment/Plan
-
Impression:
Acute hypoxic respiratory insufficiency
chronic home oxygen
Mental status change
asthma
COPD
Hyponatremia
Diabetes mellitus type II
Fibromyalgia
GERD/PUD
Anemia
Paroxysmal atrial fibrillation
Plan/recommendations
She has excess ADH.
sodium better at 130
note she is on high dose of Duloxetine too
encourage po intake and maintain FR
MS seem baseline, family at bedside
BP stable
follow bladder scan while bladder stimulator turned off
-
-
Date of Service: June 17, 2024
CC / HPI / ROS
-
Chief Complaint:
hyponatremia
History of Present Illness:
sodium was up at 130
Bp stable
non oliguric
wt decreasing
Review of Systems:
no c/o cp or sob
no n/v, on pureed diet
feels well
Labs
-
Labs:
WBC 8.4 10^3/uL (4.8-10.8) 06/17/24 05:40
RBC 3.44 10^6/uL (4.20-5.40) L 06/17/24 05:40
Hgb 10.2 g/dL (12.0-16.0) L 06/17/24 05:40
Hct 30.1 % (37.0-47.0) L 06/17/24 05:40
Plt Count 316 10^3/uL (130-400) 06/17/24 05:40
Sodium 130 mmol/L (135-145) L 06/17/24 05:40
Potassium 3.6 mmol/L (3.5-5.1) 06/17/24 05:40
Chloride 95 mmol/L (98-107) L 06/17/24 05:40
Carbon Dioxide 29 mmol/L (22-30) 06/17/24 05:40
BUN 4 mg/dl (7-17) L 06/17/24 05:40
Creatinine 0.4 mg/dL (0.6-1.0) L 06/17/24 05:40
eGFR > 60.00 06/17/24 05:40
Glucose 107 mg/dl (70-99) H 06/17/24 05:40
Calcium 8.1 mg/dl (8.4-10.2) L 06/17/24 05:40
Qne-F-Mepgnkugbjd Pept 219 pg/ml 06/08/24 23:58
Albumin 3.1 g/dl (3.5-5.0) L 06/08/24 15:48
Physical Exam
-
Vital Signs:
Vital Signs
Temp Pulse Resp BP Pulse Ox
98.8 F 86 20 123/80 98
06/17/24 07:55 06/17/24 10:10 06/17/24 07:55 06/17/24 10:10 06/17/24 11:33
Cardiovascular:: Regular rate and rhythm
Respiratory:: Bilateral: CTA (anteriorly)
Lung Excursion:: Normal
Abdomen:: Nontender and Soft
Extremity Edema:: None: Bilateral:
Reece Catheter: No
[2024-06-17 16:49] LABS: Glucose - Point of Care 187 mg/dl (70-99)
[2024-06-17] MEDS: NOVOLOG FLEXPEN-LOW RESISTANCE 1 UNITS SC (17:20)
[2024-06-17] MEDS: ROCEPHIN 1000 MG IV (17:21)
[2024-06-17] MEDS: STERILE WATER FOR INJECTION 10 ML IV (17:21)
--- NOTE | 2024-06-17 17:48 | PTCARENOTE ---
Assumed care of patient at 3pm. No noted changed in assessment.
[2024-06-17] MEDS: FLOVENT 110 MCG INHALER 2 PUFF INH (20:28)
[2024-06-17] MEDS: PEPCID 40 MG PO (21:24)
[2024-06-17] MEDS: TESSALON PERLES 200 MG PO (21:31)
[2024-06-17 21:50] LABS: Glucose - Point of Care 162 mg/dl (70-99)
[2024-06-17] MEDS: LANTUS 0.03 UNITS SC (22:49)
[2024-06-17 23:50] VITALS: BP 143/59
[2024-06-18] MEDS: TESSALON PERLES 200 MG PO (05:25)
[2024-06-18 06:00] VITALS: BMI 37.8
[2024-06-18] MEDS: TYLENOL 650 MG PO ×3 (06:06→20:38)
[2024-06-18 06:34] LABS: % Basophils 0.7 % (0-2); % Eosinophils 3.6 % (0-6); % Immature Granulocytes 0.6 % (0-0.5); % Lymphocytes 24.9 % (20.5-51.1); % Monocytes 12.1 % (1.7-9.3); % Neutrophils 58.1 % (42.2-75.2); Absolute Basophils 0.1 10^3/uL (0-0.2); Absolute Eosinophils 0.3 10^3/uL (0-0.7); Absolute Immature Granulocytes 0.1 10^3/uL (0-0.05); Absolute Lymphocytes 2.1 10^3/uL (1.2-3.4); Absolute Neutrophils 4.9 10^3/uL (1.4-6.5); Hematocrit 33.5 % (37.0-47.0); Hemoglobin 10.9 g/dL (12.0-16.0); Mean Corp Hgb Conc. 32.5 g/dL (33.0-37.0); Mean Corpuscular Hgb 28.9 pg (27.0-31.0); Mean Corpuscular Volume 88.9 fL (81.0-99.0); Mean Platelet Volume 9.8 fL (7.4-10.4); Nucleated Red Blood Cells % 0 %; Platelet Count 346 10^3/uL (130-400); Red Blood Cell Count 3.77 10^6/uL (4.20-5.40); White Blood Cell Count 8.4 10^3/uL (4.8-10.8)
[2024-06-18 07:00] VITALS: BP 172/91
[2024-06-18 07:00] LABS: Blood Urea Nitrogen 5 mg/dl (7-17); Calcium 8.4 mg/dl (8.4-10.2); Carbon Dioxide 32 mmol/L (22-30); Chloride 94 mmol/L (98-107); Estimated Creatinine Clearance 73 ml/min; Glucose 144 mg/dl (70-99); Potassium 4.1 mmol/L (3.5-5.1); Sodium 130 mmol/L (135-145); eGFR > 60.00
[2024-06-18 08:16] VITALS: BMI 37.8
[2024-06-18 08:38] LABS: Glucose - Point of Care 136 mg/dl (70-99)
[2024-06-18] MEDS: NOVOLOG FLEXPEN-LOW RESISTANCE SC (08:47)
[2024-06-18] MEDS: OCUVITE SOFTGEL 1 CAP PO ×2 (08:50→20:38)
[2024-06-18] MEDS: ELIQUIS 5 MG PO ×2 (08:50→20:38)
[2024-06-18] MEDS: LIDOCAINE 4% PATCH 1 PATCH TOPICAL (08:50)
[2024-06-18] MEDS: CYMBALTA DELAYED RELEASE 60 MG PO ×2 (08:51→20:38)
[2024-06-18] MEDS: TOPROL XL 25 MG PO (08:51)
[2024-06-18] MEDS: LIPITOR 10 MG PO (08:51)
[2024-06-18] MEDS: COZAAR 25 MG PO (08:51)
[2024-06-18] MEDS: PROTONIX 40 MG PO (08:51)
[2024-06-18] MEDS: FLOVENT 110 MCG INHALER INH (08:52)
--- NOTE | 2024-06-18 08:54 | W.PN.HOSP.TC ---
Today's Communication/Plan
-
Patient's diet to be advanced as per speech. Will see if she can tolerate. Final day of abx.
Assessment / Plan
Assessment / Plan
Assessment:
Patient is an 84y F with PMH significant for COPD, chronic hypoxemia, DM-II, fibromyalgia and anxiety / depression who presents to ED for evaluation of cough, SOB and fatigue. Patient was found to be somnolent and diagnosed with Acute toxic
metabolic encephalopathy suspected to be secondary to her medications. Patient's sedating medications were held and patient's breathing seemed to have improved.
Plan:
#Acute toxic metabolic encephalopathy suspect likely secondary to TME from medications, possible now acute psychosis from steroids and UTI
-Patient is agitated at times; steroids now stopped
-VBG 06/09/AM 7.36/58/107
-Repeat VBG 06/14/2024 7.40/41/65
-Chest x-ray without pneumonia
-UA suggestive of UTI
-holding sedating meds
-Maintaining good O2 saturation On 2L NC O2
-TSH/B12 within normal range
#hx of CVA;check CT head without CVA.
-Neuro consulted, input appreciated
-MRI (06/17/2024)
1. No MRI evidence for acute infarct.
2. Small chronic lacunar infarcts in the head of the right caudate nucleus and right putamen.
3. Small amount of chronic intraparenchymal hemorrhage in the left putamen.
4. Mild periventricular white matter leukoaraiosis in the frontal and parietal lobes.
5. Mild to moderate diffuse cerebral and cerebellar volume loss.
6. Large amount of central signal abnormality in the david and moderate symmetric signal abnormality in the thalami. OSMOTIC DEMYELINATION SYNDROME is a diagnostic possibility given hyponatremia. Chronic microvascular ischemic disease is an
alternative diagnostic possibility.
-Speech following, recommend regular diet with thin liquids
#UTI
-diagnosed via UA
-Started ceftriaxone; given sx will treat for 3 days total (Final Day)
-urine cx
-15,000 CFU/ML Streptococcus agalactiae*
-Monitor
#Hyponatremia
-monitor
-Fluid restriction
-Nephrology following
#SOB:
#Chronic hypoxic respiratory failure, on 2 L nasal cannula
-underlying asthma however now does not suspect acute exacerbation
-History of tracheomalacia
-underlying morbid Obesity due to excess calories as well as sedentary lifestyle, very likely
-Refused nebs/flovent/vest
-Will follow up with Pulm in outpatient setting
#FAITH/OHS (suspect primary etiology)
-CXR without PNA
-Acapella, IS
-pulm saw in c/s
-Pulmicort and DuoNebs ATC added
CT chest showed bibasilar atelectasis/scarring. Chronic compression deformity of T7 and T10.
-NC O2 support
Echo with preserved EF
#Fibromyalgia
#Chronic Pain Syndrome
#Anxiety/Depression
-Continue management as needed
-Holding sedating meds as noted above
-Restarted oxycodone but hasn't required since 06/11
-holding nortriptyline
#Normocytic Anemia
-No evident source of blood loss
-Monitor
#DM2
- HbA1c at 7.1%, continue with Accu-Cheks.
- Insulin Sliding scale. Decrease Lantus
#Paroxysmal Atrial Fibrillation: cont BB/Eliquis
#GERD/PUD: cont PPI
FULL/Eliquis
Anticipated Discharge: 24 - 48 hours
Subjective/Interval History
-
Date of Service: June 18, 2024
Patient says that she has been feeling tired. Says she wants to try food other than pureed at this time since she is getting tired of it. She continues to have some cough and shortness of breath but is much improved from before.
Objective Data
-
Labs:
Laboratory Results
06/18/24
05:30
WBC 8.4
Hgb 10.9 L
Hct 33.5 L
Plt Count 346
Sodium 130 L
Potassium 4.1
Chloride 94 L
Carbon Dioxide 32 H
BUN 5 L
Creatinine 0.4 L
Glucose 144 H
Calcium 8.4
Vital Signs:
Vital Signs
Temp Pulse Resp BP Pulse Ox
98.5 F 83 20 143/59 94
06/17/24 23:50 06/17/24 23:50 06/17/24 23:50 06/17/24 23:50 06/17/24 23:50
I&O
06/17/24 06/18/24 06/19/24
06:59 06:59 06:59
Intake Total 480 / 480 1320 / 1320
Balance 480 / 480 1320 / 1320
Review of Systems
-
History Source: Patient
Constitutional: Denies Fever, No Appetite, Fatigue or Sleep Disturbance
EENT: Reports No Symptoms Reported
Respiratory: Reports Cough
Cardiac: Reports No Symptoms
Abdomen/GI: Denies Nausea or Vomiting
Musculoskeletal: Reports No Symptoms
Skin: Reports No Symptoms
Neuro: Reports No Symptoms
Endocrine: Reports No Symptoms
Hematologic / Lymphatic: Reports No Symptoms
Allergy / Immunology: Reports No Symptoms
Physical Exam
-
General: No Apparent Distress and Comfortable
HEENT: Normocephalic, Atraumatic and Moist Mucous Membranes
Respiratory: Clear to Auscultation and Non Labored Respirations
Cardiac: Regular Rhythm and S1/S2
GI: Soft, Nontender and Nondistended
Musculoskeletal: No Clubbing, No Cyanosis and No Edema
Skin: Warm and Dry
Neuro: Awake, Alert and Oriented
Psych: Calm and Other (Tired appearing)
Data Reviewed
-
MRI: Report Reviewed by me, Discussed with Physician, Discussed with Nurse and Discussed with Patient
Labs: Labs Reviewed by me, Discussed with Physician, Discussed with Nurse and Discussed with Patient
[2024-06-18] MEDS: MIRALAX PO (08:58)
[2024-06-18 12:33] LABS: Glucose - Point of Care 168 mg/dl (70-99)
[2024-06-18] MEDS: NOVOLOG FLEXPEN-LOW RESISTANCE 1 UNITS SC (12:55)
--- NOTE | 2024-06-18 13:59 | W.PN.UPDATE ---
Update Note
Progress Note Update
I saw and evaluated the patient. I reviewed the resident�s note and agree with findings and plan as documented in the resident�s note.
Patient states she is feeling much better
Gen: NAD, AAOx3.
Eyes: EOMI, PERRLA, no scleral icterus.
Neck: supple.
CV: RRR, +S1/S2, no m/r/g.
Resp: CTAB, no rales, wheezes, or rhonchi.
Abd: +BS, soft, NT, ND
Skin: No rashes.
Neuro: CN 2-12 intact, non-focal, dyskinetic movements.
Psych: Normal mood and affect.
06/15/24 10:26 Urine Urine Culture - Final
06/15/24 01:58 Urine Urine Culture - Final
Streptococcus agalactiae
06/11/24 03:44 Nasal Swab Respiratory Syncytial Virus Culture - Final
Negative for Respiratory Syncytial Virus.
A false negative result may be obtained with a specimen
collected early in the acute phase. If symptoms persist, a
new specimen should be tested.
06/08/24 15:48 Nasal Swab Influenza Types A & B (EUGENIA) - Final
Negative for Influenza A & B, NAAT
Negative results must be combined with clinical observations
and patient history.
Nucleic Acid Amplification test (NAAT)performed on the
[employer] platform.
CXR: Mild elevation of the left hemidiaphragm with left greater than right bibasilar opacities favored to represent chronic atelectasis/scarring.
Echo: Normal left ventricular chamber size. Normal left ventricular systolic function. Normal left ventricular wall thickness. Normal regional wall motion. Left ventricular ejection fraction is 60-65%. Mild to moderate aortic regurgitation. Compared
to the previous echo from Jun 2016, [place] was mild at that time.
CT chest: Mild elevation of the left hemidiaphragm with left greater than right bibasilar atelectasis/scarring. No evidence of pneumonia or pulmonary edema. Small hiatal hernia. Chronic compression deformities of the T7 and T10 vertebral bodies
with mild loss of height of the T7 vertebral body and moderate loss of height of the T10 vertebral body.
MRI brain:
1. No MRI evidence for acute infarct.
2. Small chronic lacunar infarcts in the head of the right caudate nucleus and right putamen.
3. Small amount of chronic intraparenchymal hemorrhage in the left putamen.
4. Mild periventricular white matter leukoaraiosis in the frontal and parietal lobes.
5. Mild to moderate diffuse cerebral and cerebellar volume loss.
6. Large amount of central signal abnormality in the david and moderate symmetric signal abnormality in the thalami. OSMOTIC DEMYELINATION SYNDROME is a diagnostic possibility given hyponatremia. Chronic microvascular ischemic disease is an
alternative diagnostic possibility.
Acute toxic metabolic encephalopathy:
-Likely due to adverse effects of medications, possible now acute psychosis from steroids and UTI
-Patient is agitated at times; steroids were stopped
-holding sedating meds
-currently saturating well on 2L NC O2 (baseline O2)
-TSH/B12 normals
-neuro following
-EEG: moderate generalized cerebral dysfunction due to toxic, metabolic, or infectious etiology
-MRI brain findings noted, central pontine myelinolysis seems extremely unlikely considering the patient's Na trend as well as the fact that her change in mental status occurred prior to 3% NS administration
Hyponatremia:
-case discussed with Dr. Canseco, Na 130 acceptable, no changes in management today
Chronic hypoxemic respiratory failure:
-on 2L nasal cannula at baseline
-h/o tracheomalacia
-underlying asthma however does not have acute exacerbation
-underlying morbid obesity due to excess calories as well as sedentary lifestyle, very likely FAITH/OHS (suspect primary etiology)
-CT chest and echo above, unremarkable
-Acapella, IS
-pulm saw in c/s
-cont flovent
Other problems:
Fibromyalgia, Chronic Pain Syndrome, Anxiety/Depression: cont Cymbalta. Home nortriptyline on hold for acute toxic metabolic encephalopathy as above
UTI: completed 3 days Rocephin
Normocytic Anemia: No evident source of blood loss, Hb stable
DM2: a1c 7.1%, cont Lantus/SSI/Accu-Cheks
Paroxysmal Atrial Fibrillation: cont BB/Eliquis
GERD/PUD: cont PPI
FULL/Eliquis
Overall, goal for discharge tomorrow, discussed with case management and consultants.
Total time spent on today's encounter was 51 minutes which included time spent in counseling the patient/family regarding diagnosis and treatment plan as listed above, goals of care, and symptom management. Case was discussed with nursing staff,
specialists, and care coordinators/case management. All labs and imaging personally reviewed by me. Remainder the time spent in detailed review of previous records, lab data, imaging, and other medical provider documentation.
--- NOTE | 2024-06-18 14:53 | W.PN.NEPH.PH ---
Today's Communication / Plan
-
follow on 48 oz fluid restriction
mental status improved
follow up bmp
MRI report reviewed
Assessment/Plan
-
Impression:
Acute hypoxic respiratory insufficiency
chronic home oxygen
Mental status change
asthma
COPD
Hyponatremia
Diabetes mellitus type II
Fibromyalgia
GERD/PUD
Anemia
Paroxysmal atrial fibrillation
Plan/recommendations
She has excess ADH.
sodium stable at 130
note she is on high dose of Duloxetine too
Will place on 48 ounce fluid restriction for now
MS seem baseline, family at bedside
BP stable
follow bladder scan while bladder stimulator turned off
-
-
Date of Service: June 18, 2024
CC / HPI / ROS
-
Chief Complaint:
hyponatremia
History of Present Illness:
sodium was up at 130
Bp stable
non oliguric
wt decreasing
Review of Systems:
no c/o cp or sob
no n/v, on pureed diet
feels well
Labs
-
Labs:
WBC 8.4 10^3/uL (4.8-10.8) 06/18/24 05:30
RBC 3.77 10^6/uL (4.20-5.40) L 06/18/24 05:30
Hgb 10.9 g/dL (12.0-16.0) L 06/18/24 05:30
Hct 33.5 % (37.0-47.0) L 06/18/24 05:30
Plt Count 346 10^3/uL (130-400) 06/18/24 05:30
Sodium 130 mmol/L (135-145) L 06/18/24 05:30
Potassium 4.1 mmol/L (3.5-5.1) 06/18/24 05:30
Chloride 94 mmol/L (98-107) L 06/18/24 05:30
Carbon Dioxide 32 mmol/L (22-30) H 06/18/24 05:30
BUN 5 mg/dl (7-17) L 06/18/24 05:30
Creatinine 0.4 mg/dL (0.6-1.0) L 06/18/24 05:30
eGFR > 60.00 06/18/24 05:30
Glucose 144 mg/dl (70-99) H 06/18/24 05:30
Calcium 8.4 mg/dl (8.4-10.2) 06/18/24 05:30
Hno-W-Vzmyjgtmmon Pept 219 pg/ml 06/08/24 23:58
Albumin 3.1 g/dl (3.5-5.0) L 06/08/24 15:48
Physical Exam
-
Vital Signs:
Vital Signs
Temp Pulse Resp BP Pulse Ox
97.9 F 91 18 161/70 98
06/18/24 07:00 06/18/24 08:51 06/18/24 07:00 06/18/24 08:51 06/18/24 11:41
Cardiovascular:: Regular rate and rhythm
Respiratory:: Bilateral: CTA (anteriorly)
Lung Excursion:: Normal
Abdomen:: Nontender and Soft
Extremity Edema:: None: Bilateral:
Reece Catheter: No
[2024-06-18 15:32] VITALS: BP 151/63
--- NOTE | 2024-06-18 15:37 | CM ---
Chart reviewed. Pt is from [facility].
Per hospitalist, marlen d/c tomorrow
Cont 2 L O2- baseline for home O2
Prev discussed w/ daughter option of caregivers/[employer] at d/c
CM will offer HH again as recommended by PT/OT, though prev declined by daughter
Plan: Return to [facility] independent living w/ HH is pt and/or spouse is agreeable
[2024-06-18 16:54] LABS: Glucose - Point of Care 227 mg/dl (70-99)
[2024-06-18] MEDS: NOVOLOG FLEXPEN-LOW RESISTANCE 2 UNITS SC (17:09)
[2024-06-18] MEDS: PEPCID 40 MG PO (20:38)
[2024-06-18] MEDS: FLOVENT 110 MCG INHALER 2 PUFF INH (20:47)
[2024-06-18 21:23] LABS: Glucose - Point of Care 137 mg/dl (70-99)
[2024-06-18] MEDS: LANTUS 0.04 UNITS SC (21:28)
[2024-06-18 23:55] VITALS: BP 156/65
[2024-06-19 04:37] LABS: Glucose - Point of Care 145 mg/dl (70-99)
[2024-06-19 06:00] VITALS: BMI 38.5
[2024-06-19] MEDS: FLOVENT 110 MCG INHALER INH (07:57)
--- NOTE | 2024-06-19 08:03 | W.PN.HOSP.TC ---
Today's Communication/Plan
-
Patient to be discharged today as she has been feeling better and her mental status has improved greatly.
Assessment / Plan
Assessment / Plan
Assessment:
Patient is an 84y F with PMH significant for COPD, chronic hypoxemia, DM-II, fibromyalgia and anxiety / depression who presents to ED for evaluation of cough, SOB and fatigue. Patient was found to be somnolent and diagnosed with Acute toxic
metabolic encephalopathy suspected to be secondary to her medications. Patient's sedating medications were held and patient's breathing seemed to have improved.
Plan:
#Acute toxic metabolic encephalopathy suspect likely secondary to TME from medications, possible now acute psychosis from steroids and UTI
-Patient is agitated at times; steroids now stopped
-VBG 06/09/24AM 7.36/58/107
-Repeat VBG 06/14/2024 7.40/41/65
-Chest x-ray without pneumonia
-UA suggestive of UTI
-holding sedating meds
-Maintaining good O2 saturation On 2L NC O2
-TSH/B12 within normal range
#hx of CVA;check CT head without CVA.
-Neuro consulted, input appreciated
-MRI (06/17/2024)
1. No MRI evidence for acute infarct.
2. Small chronic lacunar infarcts in the head of the right caudate nucleus and right putamen.
3. Small amount of chronic intraparenchymal hemorrhage in the left putamen.
4. Mild periventricular white matter leukoaraiosis in the frontal and parietal lobes.
5. Mild to moderate diffuse cerebral and cerebellar volume loss.
6. Large amount of central signal abnormality in the david and moderate symmetric signal abnormality in the thalami. OSMOTIC DEMYELINATION SYNDROME is a diagnostic possibility given hyponatremia. Chronic microvascular ischemic disease is an
alternative diagnostic possibility.
-central pontine myelinolysis seems extremely unlikely due to symptoms occurring before sodium correction
-Speech following, recommend regular diet with thin liquids
#UTI
-diagnosed via UA
-Completed course ceftriaxone; given sx will treat for 3 days total
-urine cx pending
-15,000 CFU/ML Streptococcus agalactiae*
-Monitor for any further symptoms
#Hyponatremia
-monitor
-Fluid restriction and follow BMP
-Nephrology following, input appreciated
#SOB:
#Chronic hypoxic respiratory failure, on 2 L nasal cannula
-underlying asthma however now does not suspect acute exacerbation
-History of tracheomalacia
-underlying morbid Obesity due to excess calories as well as sedentary lifestyle, very likely
-Refused nebs/flovent/vest
-Will follow up with Pulm in outpatient setting
#FAITH/OHS (suspect primary etiology)
-CXR without PNA
-Acapella, IS
-pulm saw in c/s
-Pulmicort and DuoNebs ATC added
-CT chest showed bibasilar atelectasis/scarring. Chronic compression deformity of T7 and T10.
-NC O2 support
-Echo with preserved EF
#Fibromyalgia
#Chronic Pain Syndrome
#Anxiety/Depression
-Continue management as needed
-Holding sedating meds as noted above
-Restarted oxycodone but hasn't required since 06/11
-holding nortriptyline
#Normocytic Anemia
-No evident source of blood loss
-Monitor
#DM2
- HbA1c at 7.1%, continue with Accu-Cheks.
- Insulin Sliding scale. Decrease Lantus
#Paroxysmal Atrial Fibrillation: cont BB/Eliquis
#GERD/PUD: cont PPI
FULL/Eliquis
Anticipated Discharge: Today
Subjective/Interval History
-
Date of Service: June 19, 2024
Patient very somnolent this morning and difficult to wake. Was having trouble following directions. Mental status seems to be waxing and waning. Nurse reports no overnight adverse events.
Objective Data
-
Labs:
Laboratory Results
06/19/24
06:00
WBC Pending
Hgb Pending
Hct Pending
Plt Count Pending
Sodium Pending
Potassium Pending
Chloride Pending
Carbon Dioxide Pending
BUN Pending
Creatinine Pending
Glucose Pending
Calcium Pending
Total Bilirubin Pending
AST Pending
ALT Pending
Alkaline Phosphatase Pending
Vital Signs:
Vital Signs
Temp Pulse Resp BP Pulse Ox
99.2 F 83 20 156/65 100
06/18/24 23:55 06/18/24 23:55 06/18/24 23:55 06/18/24 23:55 06/18/24 23:55
I&O
06/18/24 06/19/24 06/20/24
06:59 06:59 06:59
Intake Total 1320 / 1320 480 / 480
Balance 1320 / 1320 480 / 480
Review of Systems
-
Unable to obtain full review of systems at this time due to: Acuity
History Source: Patient
Constitutional: Reports No Symptoms
EENT: Reports No Symptoms Reported
Respiratory: Reports No Symptoms
Cardiac: Reports No Symptoms
Abdomen/GI: Reports No Symptoms
Musculoskeletal: Reports No Symptoms
Skin: Reports No Symptoms
Neuro: Reports Weakness
Endocrine: Reports No Symptoms
Hematologic / Lymphatic: Reports No Symptoms
Allergy / Immunology: Reports No Symptoms
Physical Exam
-
General: No Apparent Distress and Comfortable
HEENT: Normocephalic, Atraumatic and Moist Mucous Membranes
Respiratory: Clear to Auscultation and Non Labored Respirations
Cardiac: Regular Rhythm and S1/S2
GI: Soft, Nontender, Nondistended and Normal Bowel Sounds
Musculoskeletal: No Clubbing, No Cyanosis and No Edema
Skin: Warm and Dry
Neuro: Sedated
Psych: Calm and Other (Somnolent)
Data Reviewed
-
MRI: Report Reviewed by me, Discussed with Physician, Discussed with Nurse and Discussed with Patient
Labs: Labs Reviewed by me, Discussed with Physician, Discussed with Nurse and Discussed with Patient
[2024-06-19 08:29] LABS: Glucose - Point of Care 144 mg/dl (70-99)
[2024-06-19 08:35] VITALS: BP 182/79
--- NOTE | 2024-06-19 08:36 | W.PN.UPDATE ---
Update Note
Progress Note Update
I saw and evaluated the patient. I reviewed the resident�s note and agree with findings and plan as documented in the resident�s note.
Patient currently not answering questions. As per nursing the patient is frequently this way in the morning.
Gen: NAD, awake and alert but not oriented, NCAT
Eyes: EOMI, PERRLA, no scleral icterus.
Neck: supple.
CV: remains RRR, +S1/S2, no m/r/g.
Resp: CTAB anteriorly, no rales, wheezes, or rhonchi.
Abd: +BS, soft, NT, ND
Skin: No rashes.
Neuro: CN 2-12 intact, non-focal, dyskinetic movements.
Psych: Normal mood and affect.
06/15/24 10:26 Urine Urine Culture - Final
06/15/24 01:58 Urine Urine Culture - Final
Streptococcus agalactiae
06/11/24 03:44 Nasal Swab Respiratory Syncytial Virus Culture - Final
Negative for Respiratory Syncytial Virus.
A false negative result may be obtained with a specimen
collected early in the acute phase. If symptoms persist, a
new specimen should be tested.
06/08/24 15:48 Nasal Swab Influenza Types A & B (EUGENIA) - Final
Negative for Influenza A & B, NAAT
Negative results must be combined with clinical observations
and patient history.
Nucleic Acid Amplification test (NAAT)performed on the
[employer] platform.
CXR: Mild elevation of the left hemidiaphragm with left greater than right bibasilar opacities favored to represent chronic atelectasis/scarring.
Echo: Normal left ventricular chamber size. Normal left ventricular systolic function. Normal left ventricular wall thickness. Normal regional wall motion. Left ventricular ejection fraction is 60-65%. Mild to moderate aortic regurgitation. Compared
to the previous echo from Jun 2016, AR was mild at that time.
CT chest: Mild elevation of the left hemidiaphragm with left greater than right bibasilar atelectasis/scarring. No evidence of pneumonia or pulmonary edema. Small hiatal hernia. Chronic compression deformities of the T7 and T10 vertebral bodies
with mild loss of height of the T7 vertebral body and moderate loss of height of the T10 vertebral body.
MRI brain:
1. No MRI evidence for acute infarct.
2. Small chronic lacunar infarcts in the head of the right caudate nucleus and right putamen.
3. Small amount of chronic intraparenchymal hemorrhage in the left putamen.
4. Mild periventricular white matter leukoaraiosis in the frontal and parietal lobes.
5. Mild to moderate diffuse cerebral and cerebellar volume loss.
6. Large amount of central signal abnormality in the david and moderate symmetric signal abnormality in the thalami. OSMOTIC DEMYELINATION SYNDROME is a diagnostic possibility given hyponatremia. Chronic microvascular ischemic disease is an
alternative diagnostic possibility.
Acute toxic metabolic encephalopathy:
-Likely due to adverse effects of medications, possible now acute psychosis from steroids and UTI
-Patient is agitated at times; steroids were stopped
-holding sedating meds
-currently saturating well on 2L NC O2 (baseline O2)
-TSH/B12 normals
-neuro following
-EEG: moderate generalized cerebral dysfunction due to toxic, metabolic, or infectious etiology
-MRI brain findings noted, central pontine myelinolysis seems extremely unlikely considering the patient's Na trend as well as the fact that her change in mental status occurred prior to 3% NS administration
-as per discussion with Dr. Vidales 06/19/24AM pt is medically cleared for d/c from her standpoint. She did recommend checking ABG prior to discharge which has been ordered but respiratory unable to complete despite 2 respiratory therapist trying 2
times each.
Hyponatremia:
-Na 128
-renal following, Dr. Canseco will see later today, likely will be started on Lasix.
Chronic hypoxemic respiratory failure:
-on 2L nasal cannula at baseline
-h/o tracheomalacia
-underlying asthma however does not have acute exacerbation
-underlying morbid obesity due to excess calories as well as sedentary lifestyle, very likely FAITH/OHS (suspect primary etiology)
-CT chest and echo above, unremarkable
-Acapella, IS
-pulm saw in c/s
-cont flovent
Other problems:
Fibromyalgia, Chronic Pain Syndrome, Anxiety/Depression: cont Cymbalta. Home nortriptyline on hold for acute toxic metabolic encephalopathy as above.
UTI: completed 3 days Rocephin
Normocytic Anemia: No evident source of blood loss, Hb stable
DM2: a1c 7.1%, cont Lantus/SSI/Accu-Cheks
Paroxysmal Atrial Fibrillation: cont BB/Eliquis
GERD/PUD: cont PPI
FULL/Eliquis
Total time spent on today's encounter was 50 minutes which included time spent in counseling the patient/family regarding diagnosis and treatment plan as listed above, goals of care, and symptom management. Case was discussed with nursing staff,
specialists, and care coordinators/case management. All labs and imaging personally reviewed by me. Remainder the time spent in detailed review of previous records, lab data, imaging, and other medical provider documentation.
[2024-06-19 08:57] LABS: Hematocrit 34.7 % (37.0-47.0); Hemoglobin 11.7 g/dL (12.0-16.0); Mean Corp Hgb Conc. 33.7 g/dL (33.0-37.0); Mean Corpuscular Hgb 29.6 pg (27.0-31.0); Mean Corpuscular Volume 87.8 fL (81.0-99.0); Mean Platelet Volume 9.6 fL (7.4-10.4); Platelet Count 324 10^3/uL (130-400); Red Blood Cell Count 3.95 10^6/uL (4.20-5.40); Red Cell Dist. Width 14.9 % (11.5-14.5); White Blood Cell Count 8.1 10^3/uL (4.8-10.8)
[2024-06-19 09:29] LABS: ALT (SGPT) 14 U/L (0-35); AST (SGOT) 22 U/L (14-36); Alkaline Phosphatase 88 U/L (38-126); Blood Urea Nitrogen 3 mg/dl (7-17); Calcium 8.5 mg/dl (8.4-10.2); Carbon Dioxide 31 mmol/L (22-30); Chloride 92 mmol/L (98-107); Estimated Creatinine Clearance 72 ml/min; Glucose 145 mg/dl (70-99); Sodium 128 mmol/L (135-145); Total Bilirubin 0.7 mg/dl (0.2-1.3); Total Protein 5.6 g/dl (6.3-8.2); eGFR > 60.00
--- NOTE | 2024-06-19 09:49 | PTCARENOTE ---
Eduardo akers discontinued this am.
[2024-06-19] MEDS: NOVOLOG FLEXPEN-LOW RESISTANCE SC ×2 (10:48→17:55)
[2024-06-19] MEDS: LIDOCAINE 4% PATCH 1 PATCH TOPICAL (10:57)
[2024-06-19] MEDS: ELIQUIS 5 MG PO ×2 (10:58→20:38)
[2024-06-19] MEDS: TOPROL XL 25 MG PO (10:58)
[2024-06-19] MEDS: COZAAR 25 MG PO (10:58)
[2024-06-19] MEDS: PROTONIX 40 MG PO (10:58)
[2024-06-19] MEDS: CYMBALTA DELAYED RELEASE 60 MG PO ×2 (10:58→20:37)
[2024-06-19] MEDS: OCUVITE SOFTGEL 1 CAP PO ×2 (10:58→20:37)
[2024-06-19] MEDS: LIPITOR 10 MG PO (10:58)
[2024-06-19] MEDS: MIRALAX PO (10:59)
[2024-06-19 14:18] LABS: Glucose - Point of Care 245 mg/dl (70-99)
[2024-06-19] MEDS: NOVOLOG FLEXPEN-LOW RESISTANCE 2 UNITS SC (14:51)
--- NOTE | 2024-06-19 15:36 | W.PN.NEURO.1 ---
Today's Communication / Plan
-
.
Subjective/Objective
Subjective Data
Date of Service: June 19, 2024
Neurology follow-up note
HPI: This is an 84-year-old woman who presented to [facility] on 06-08-2024 with dyspnea and cough. Neurology service was reconsulted to comment on brain MRI results.
The patient is unable to provide history.
PDMP:Pregabalin 200 Mg substitute capsules filled in on 05/14/2024, oxycodone 10 mg 30 tablets filled in on 05/28/2024, 05/01/2024
Routine EEG-(06/14/2024 open)�triphasic waves
Labs: Sodium�128, glucose�145, normal WBCs, platelets.
Brain MRi wo bakari- Small chronic lacunar infarcts in the head of the right caudate nucleus and right putamen.
3. Small amount of chronic intraparenchymal hemorrhage in the left putamen.
4. Mild periventricular white matter leukoaraiosis in the frontal and parietal lobes.
5. Mild to moderate diffuse cerebral and cerebellar volume loss.
6. Large amount of central signal abnormality in the david and moderate symmetric signal abnormality in the thalami. OSMOTIC DEMYELINATION SYNDROME is a diagnostic possibility given hyponatremia. Chronic microvascular ischemic disease is an
alternative diagnostic possibility.
PMH: Paroxysmal A-fib, DM, chronic opioid use, chronic hypoxic respiratory failure, COPD, diabetes, fibromyalgia, GERD, anemia, BAKARI, BMI 38
PSH: InterStim , Hiatal Hernia repair / Fundoplication, partial small bowel resection, cholecystectomy, hysterectomy, left knee arthroscopy, bladder lift
SH: shelter resident
All: Amoxicillin, clarithromycin, diazepam, fentanyl, hydromorphone, iodine, levofloxacin, methylprednisolone, morphine, potassium chloride
ROS: Unable due to encephalopathy
General: Well developed. In no acute distress.
Cardio: Regular rate and rhythm without murmur. Extremities are without cyanosis or edema.
Neuro:
Mental Status: stuporous, moans to sternal rub. Does not follow requests.
Cranial Nerves: Orthophoric primary gaze. No nystagmus. well. SCMs and traps 5/5. Tongue midline. No dysarthria.
Motor: Moves limbs within bed plane nonpurposeful he
Reflexes: Negative clonus bilaterally
Sensory: Unable due to encephalopathy
Coordination: No tremors myoclonic movements.
Gait: deferred
Assessment and Plan:
I. Multifactorial encephalopathy (metabolic (hyponatremia, infectious, hypoxic).
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
III. Paroxysmal A-fib
IV. Hyponatremia
-Aspiration precautions
-Please check ABG, TSH, free T4, vit B12, ammonia, CK
-Will obtain collateral history from patient's family regarding cognitive baseline.
-Continue Eliquis for stroke prophylaxis
-DVT prophylaxis
I personally reviewed all radiology and labs along with past medical records pertinent to current medical problems. Total time spent in patient care is 60 minutes.
Thank you for allowing us to participate in the care of this patient. We will continue to follow. Please do not hesitate to contact us with any questions or concerns.
Objective Data
Vital Signs
Temp Pulse Resp BP Pulse Ox
37.0 C 93 20 182/79 98
06/19/24 08:35 06/19/24 08:35 06/19/24 08:35 06/19/24 08:35 06/19/24 09:46
Lab Results
06/19/24 08:21
06/19/24 08:21
Sodium 128 mmol/L (135-145) L 06/19/24 08:21
Potassium 4.0 mmol/L (3.5-5.1) 06/19/24 08:21
BUN 3 mg/dl (7-17) L 06/19/24 08:21
Glucose 145 mg/dl (70-99) H 06/19/24 08:21
Calcium 8.5 mg/dl (8.4-10.2) 06/19/24 08:21
Naq-N-Xbsraktwkms Pept 219 pg/ml 06/08/24 23:58
Vitamin B12 902 pg/ml (239-931) 06/09/24 06:56
Patient Allergies
amoxicillin trihydrate [From Augmentin] Allergy (Verified 06/08/24 15:35)
Nausea / Vomiting
clarithromycin [From Biaxin] Allergy (Verified 06/08/24 15:35)
Nausea / Vomiting
clindamycin Allergy (Verified 06/08/24 15:35)
Nausea / Vomiting
diazepam Allergy (Verified 06/08/24 15:35)
HEADACHE
fentanyl Allergy (Verified 06/08/24 15:35)
hallucination
hydromorphone HCl [From Dilaudid] Allergy (Verified 06/08/24 15:35)
Itching
Iodinated Contrast Media [IV Dye, Iodine Containing Contrast ] Allergy (Verified 06/08/24 15:35)
Tongue Swelling
iodine [Iodine] Allergy (Verified 06/08/24 15:35)
Itchy Rash
levofloxacin [From Levaquin] Allergy (Verified 06/08/24 15:35)
REDNESS AND ITCHING AT IV SITE
methylprednisolone [From Medrol] Allergy (Verified 06/08/24 15:35)
HEADACHE
morphine [Morphine] Allergy (Verified 06/08/24 15:35)
SEVERE ITCH,RED RASH
potassium clavulanate [From Augmentin] Allergy (Verified 06/08/24 15:35)
Nausea / Vomiting
STEROIDS Allergy (Uncoded 06/08/24 15:35)
MIGRAINES
Vital Signs and Labs
-
Vital Signs and Labs:
Vital Signs
Temp Pulse Resp BP Pulse Ox
37.0 C 93 20 182/79 98
06/19/24 08:35 06/19/24 08:35 06/19/24 08:35 06/19/24 08:35 06/19/24 09:46
Lab Results
06/19/24 08:21
06/19/24 08:21
Sodium 128 mmol/L (135-145) L 06/19/24 08:21
Potassium 4.0 mmol/L (3.5-5.1) 06/19/24 08:21
BUN 3 mg/dl (7-17) L 06/19/24 08:21
Glucose 145 mg/dl (70-99) H 06/19/24 08:21
Calcium 8.5 mg/dl (8.4-10.2) 06/19/24 08:21
Ahn-X-Uizbzxhurpd Pept 219 pg/ml 06/08/24 23:58
Vitamin B12 902 pg/ml (239-931) 06/09/24 06:56
Medications
-
Medications:
Generic Name Dose Route Start Last Admin
Trade Name Freq PRN Reason Stop Dose Admin
Acetaminophen 650 mg 06/09/24 01:38 06/18/24 20:38
Acetaminophen 325 Mg Tablet PO 07/07/24 01:37 650 mg
Q4HPRN PRN Administration
Mild Pain / Temp > 101
Albuterol Sulfate 2.5 mg 06/09/24 01:38 06/10/24 00:56
Albuterol Nebs 2.5 Mg/3 Ml Ampul INH 2.5 mg
R Q4HPRN PRN Administration
SOB
Protocol
Apixaban 5 mg 06/09/24 08:00 06/19/24 10:58
Apixaban (Eliquis) 5 Mg Tablet PO 07/07/24 07:59 5 mg
BID NORMA Administration
Atorvastatin Calcium 10 mg 06/09/24 08:00 06/19/24 10:58
Atorvastatin (Lipitor) 10 Mg Tablet PO 07/07/24 07:59 10 mg
DAILY NORMA Administration
Benzonatate 200 mg 06/09/24 03:14 06/18/24 05:25
Benzonatate 100 Mg Capsule PO 07/07/24 03:13 200 mg
TID PRN Administration
Cough
Dextrose 12.5 grams 06/09/24 01:38
Dextrose 50% (0.5 Grams/Ml) 50 Ml Syringe IV 07/07/24 01:37
[id number] PRN
hypoglycemia
Protocol
Duloxetine HCl 60 mg 06/09/24 08:00 06/19/24 10:58
Duloxetine Delayed Release 60 Mg Capsule PO 07/07/24 07:59 60 mg
BID NORMA Administration
Famotidine 40 mg 06/09/24 22:00 06/18/24 20:38
Famotidine 40 Mg Tablet PO 07/07/24 21:59 40 mg
HS NORMA Administration
Fluticasone Propionate 2 puff 06/09/24 08:00 06/19/24 07:57
Fluticasone 110mcg Inhaler INH 07/07/24 07:59 Not Given
R BID NORMA
Glucagon 1 mg 06/09/24 01:38
Glucagon 1 Mg Vial IM 07/07/24 01:37
PRN PRN
hypoglycemia
Protocol
Hydralazine HCl 5 mg 06/14/24 09:21 06/14/24 22:26
Hydralazine 20 Mg/Ml Vial IV 07/12/24 09:20 5 mg
Q6HPRN PRN Administration
SBP>160
Insulin Glargine 4 units/ 0.04 mls @ 0 mls/hr 06/18/24 14:03 06/18/24 21:28
Device SC 07/14/24 09:07 0.04 mls
HS NORMA Administration
As Directed
Insulin Aspart 0 units 06/09/24 07:30 06/19/24 14:51
Insulin Aspart Low Resistance 300 Units/3 Ml Pen.Injctr SC 07/07/24 07:29 2 units
AC NORMA Administration
Protocol
Lidocaine 1 patch 06/12/24 01:45 06/19/24 10:57
Lidocaine 4% Topical Patch TOPICAL 07/10/24 01:44 1 patch
DAILY NORMA Administration
Protocol
Losartan Potassium 25 mg 06/11/24 14:00 06/19/24 10:58
Losartan 25 Mg Tablet PO 07/09/24 13:59 25 mg
DAILY NORMA Administration
Metoprolol Succinate 25 mg 06/09/24 08:00 06/19/24 10:58
Metoprolol 25 Mg Extended Release Tablet PO 07/07/24 07:59 25 mg
DAILY ONRMA Administration
Ondansetron HCl 4 mg 06/10/24 17:16 06/11/24 22:55
Ondansetron 4 Mg/2 Ml Vial IV 07/08/24 17:15 4 mg
Q6HPRN PRN Administration
NAUSEA/VOMITING
Oxycodone HCl 5 mg 06/11/24 10:21 06/11/24 23:19
Oxycodone 5 Mg Regular Release Tablet PO 06/25/24 10:20 5 mg
TIDPRN PRN Administration
moderate to severe pain
Pantoprazole Sodium 40 mg 06/09/24 08:00 06/19/24 10:58
Pantoprazole 40 Mg Delayed Release Tablet PO 07/07/24 07:59 40 mg
DAILY NORMA Administration
Polyethylene Glycol 17 grams 06/12/24 10:00 06/19/24 10:59
Polyethylene Glycol Powder 17 Grams Packet PO 07/10/24 09:59 Not Given
DAILY NORMA
Sodium Chloride 0 flush 06/09/24 04:00 06/10/24 17:56
Sodium Chloride 0.9% (Flush) Syringe IV 07/07/24 03:59 2 flush
PER PROTOCOL NORMA Administration
Vitamin C/Vitamin E 1 cap 06/09/24 08:00 06/19/24 10:58
Vit C/Vit E/Lutein/Min/[place]-3 (Ocuvite) Capsule PO 01/25/25 07:59 1 cap
BID NORMA Administration
Home Medications
-
Home Medications
peghv-6k-mgt-epa-fish oil 120 mg-180 mg-60 mg-1,200 mg capsule, DR (Fish Oil) 1,200 mg PO DAILY Supplement 07/07/15
pantoprazole 40 mg tablet,delayed release 40 mg PO DAILY gastric erosions 05/28/18
vitamins A,C,M-rtun-dbrexw 4,296 mcg-226 mg-90 mg capsule (PreserVision AREDS) 1 cap PO BID Supplement 05/28/18
atorvastatin 10 mg tablet 10 mg PO DAILY High cholesterol 05/08/21
dicyclomine 10 mg capsule 10 mg PO BIDPRN PRN cramping 05/08/21
duloxetine 60 mg capsule,delayed release 60 mg PO BID DEPRESSION/PAIN 05/08/21
insulin aspart U-100 100 unit/mL (3 mL) subcutaneous pen (Novolog FlexPen U-100 Insulin aspart) 8 units SC AC Diabetes 05/08/21
albuterol sulfate 90 mcg/actuation aerosol inhaler (Ventolin HFA) 2 puff inhalation R Q6HPRN PRN SOB 08/12/22
montelukast 10 mg tablet 10 mg PO HS Lung/Breathing Issues 08/12/22
nortriptyline 50 mg capsule 50 mg PO HS Mental Health/Anxiety 08/12/22
benzonatate 200 mg capsule 200 mg PO TID Cough 08/16/22
cholecalciferol (vitamin D3) 50 mcg (2,000 unit) tablet (Vitamin D3) 50 mcg PO DAILY Supplement 05/10/23
docusate sodium 100 mg capsule (Colace) 100 mg PO NOON STOOL SOFTENER 05/10/23
insulin degludec 100 unit/mL (3 mL) subcutaneous pen (Tresiba FlexTouch U-100 insulin) 15 unit SC HS Diabetes 05/10/23
ramelteon 8 mg tablet 8 mg PO HS 05/10/23
apixaban 5 mg tablet (Eliquis) 5 mg PO BID Blood Clot Prevention/Tx 06/08/24
calcium carbonate (Calcium 600) 600 mg PO BID Supplement 06/08/24
famotidine 40 mg tablet 40 mg PO HS Gastrointestinal Issue 06/08/24
fluticasone furoate 200 mcg/actuation blister powder for inhalation (Arnuity Ellipta) 1 inh inhalation R HS Lung/Breathing Issues 06/08/24
fluticasone propionate 50 mcg/actuation nasal spray,suspension 1 spray intranasal HS NASAL CONGESTION 06/08/24
ipratropium 0.5 mg-albuterol 3 mg (2.5 mg base)/3 mL nebulization soln 3 ml inhalation R TIDPRN PRN sob 06/08/24
lidocaine 4 % topical cream 1 applic topical BID R knee 06/08/24
losartan 25 mg tablet 25 mg PO DAILY Blood Pressure 06/08/24
metoprolol succinate 25 mg tablet,extended release 24 hr 25 mg PO DAILY Blood Pressure 06/08/24
nystatin 100,000 unit/gram topical powder 1 applic topical BID abd folds, groin, chest 06/08/24
polyethylene glycol 3350 17 gram oral powder packet (Miralax) 17 g PO DAILYPRN PRN constipation 06/08/24
psyllium 1 packet PO DAILY Gastrointestinal Issue 06/08/24
[2024-06-19] MEDS: TYLENOL 650 MG PO ×2 (15:58→21:00)
[2024-06-19 16:26] VITALS: BP 133/67
--- NOTE | 2024-06-19 16:32 | W.PN.NEPH.PH ---
Today's Communication / Plan
-
Add 20 mg p.o. Lasix
Follow-up BMP
Assessment/Plan
-
Impression:
Acute hypoxic respiratory insufficiency
chronic home oxygen
Mental status change
asthma
COPD
Hyponatremia
Diabetes mellitus type II
Fibromyalgia
GERD/PUD
Anemia
Paroxysmal atrial fibrillation
Plan/recommendations
She has excess ADH.
sodium down to 120
note she is on high dose of Duloxetine too
Will maintain on 48 ounce fluid restriction for now
We will add 20 mg of Lasix daily to augment free water excretion
MS seem baseline, family at bedside
BP stable
follow bladder scan while bladder stimulator turned off
-
-
Date of Service: June 19, 2024
CC / HPI / ROS
-
Chief Complaint:
hyponatremia
History of Present Illness:
sodium down to 120
Bp stable
non oliguric
wt decreasing
Review of Systems:
no c/o cp or sob
no n/v, on pureed diet
feels well
Labs
-
Labs:
WBC 8.1 10^3/uL (4.8-10.8) 06/19/24 08:21
RBC 3.95 10^6/uL (4.20-5.40) L 06/19/24 08:21
Hgb 11.7 g/dL (12.0-16.0) L 06/19/24 08:21
Hct 34.7 % (37.0-47.0) L 06/19/24 08:21
Plt Count 324 10^3/uL (130-400) 06/19/24 08:21
Sodium 128 mmol/L (135-145) L 06/19/24 08:21
Potassium 4.0 mmol/L (3.5-5.1) 06/19/24 08:21
Chloride 92 mmol/L (98-107) L 06/19/24 08:21
Carbon Dioxide 31 mmol/L (22-30) H 06/19/24 08:21
BUN 3 mg/dl (7-17) L 06/19/24 08:21
Creatinine 0.5 mg/dL (0.6-1.0) L 06/19/24 08:21
eGFR > 60.00 06/19/24 08:21
Glucose 145 mg/dl (70-99) H 06/19/24 08:21
Calcium 8.5 mg/dl (8.4-10.2) 06/19/24 08:21
Cwp-B-Xsqzbaojqzc Pept 219 pg/ml 06/08/24 23:58
Albumin 3.0 g/dl (3.5-5.0) L 06/19/24 08:21
Physical Exam
-
Vital Signs:
Vital Signs
Temp Pulse Resp BP Pulse Ox
97.8 F 93 18 133/67 94
06/19/24 16:26 06/19/24 16:26 06/19/24 16:26 06/19/24 16:26 06/19/24 16:26
Cardiovascular:: Regular rate and rhythm
Respiratory:: Bilateral: CTA (anteriorly)
Lung Excursion:: Normal
Abdomen:: Nontender and Soft
Extremity Edema:: None: Bilateral:
Reece Catheter: No
--- NOTE | 2024-06-19 16:34 | CM ---
PT Indicated Snf .
As per MD not ready for dc today.
Spoke with Donaldo and pt in room .
and pt will review need and get back to CM .
Pt on oxygen 2 liters Pox 94 %.
She has home oxygen with [facility] .
IMM reviewed signed on chart.
PLAN Home VS SNF . Will need auth
[2024-06-19 17:52] LABS: Glucose - Point of Care 127 mg/dl (70-99)
[2024-06-19] MEDS: LASIX 20 MG PO (18:06)
[2024-06-19] MEDS: ROXICODONE 5 MG PO (18:06)
[2024-06-19] MEDS: FLOVENT 110 MCG INHALER 2 PUFF INH (20:27)
[2024-06-19] MEDS: PEPCID 40 MG PO (20:37)
[2024-06-19] MEDS: TESSALON PERLES 200 MG PO (21:00)
[2024-06-19 22:03] LABS: Glucose - Point of Care 242 mg/dl (70-99)
[2024-06-19] MEDS: LANTUS 0.04 UNITS SC (22:14)
[2024-06-19 23:20] VITALS: BP 153/61
[2024-06-20 00:55] LABS: Ammonia < 9 umol/L (9-30); Creatine Phosphokinase 37 U/L (30-135)
[2024-06-20 01:26] LABS: TSH Reflex To Free T4 1.89 uIU/ml (0.47-4.68)
[2024-06-20 05:20] VITALS: BMI 38.1
--- NOTE | 2024-06-20 07:29 | W.PN.HOSP.TC ---
Today's Communication/Plan
-
Patient's mental status is improving but sodium levels are trending down. Continue monitoring for any changes in mental status.
Assessment / Plan
Assessment / Plan
Assessment:
Patient is an 84y F with PMH significant for COPD, chronic hypoxemia, DM-II, fibromyalgia and anxiety / depression who presents to ED for evaluation of cough, SOB and fatigue. Patient was found to be somnolent and diagnosed with Acute toxic
metabolic encephalopathy suspected to be secondary to her medications. Patient's sedating medications were held and patient's breathing seemed to have improved.
Plan:
#Acute toxic metabolic encephalopathy
-suspect likely secondary to TME from medications, possible now acute psychosis from steroids and UTI
-Patient is agitated at times; steroids now stopped
-VBG 06/09/24AM 7.36/58/107
-Repeat VBG 06/14/2024 7.40/41/65
-Chest x-ray without pneumonia
-UA suggestive of UTI
-holding sedating meds
-Maintaining good O2 saturation On 2L NC O2
-TSH/B12 within normal range
-hx of CVA;check CT head without CVA.
-Neuro consulted, input appreciated
-MRI (06/17/2024)
1. No MRI evidence for acute infarct.
2. Small chronic lacunar infarcts in the head of the right caudate nucleus and right putamen.
3. Small amount of chronic intraparenchymal hemorrhage in the left putamen.
4. Mild periventricular white matter leukoaraiosis in the frontal and parietal lobes.
5. Mild to moderate diffuse cerebral and cerebellar volume loss.
6. Large amount of central signal abnormality in the david and moderate symmetric signal abnormality in the thalami. OSMOTIC DEMYELINATION SYNDROME is a diagnostic possibility given hyponatremia. Chronic microvascular ischemic disease is an
alternative diagnostic possibility.
-central pontine myelinolysis seems extremely unlikely due to symptoms occurring before sodium correction
-alternative diagnosis is Chronic microvascular ischemic disease
-Speech following, recommended regular diet with thin liquids
-ABG ordered but unable to get sample as of yet
#UTI
-diagnosed via UA
-Completed course ceftriaxone; given sx will treat for 3 days total
-urine cx pending
-15,000 CFU/ML Streptococcus agalactiae*
-Monitor for any further symptoms
#Hyponatremia
-monitor
-Fluid restriction and follow BMP
-Started on PO Lasix 20mg
-Nephrology following, input appreciated
-Sodium continues to trend down, probbale to ADH excess?
#Chronic hypoxemic respiratory failure, on 2 L nasal cannula
-underlying asthma however now does not suspect acute exacerbation
-History of tracheomalacia
-underlying morbid Obesity due to excess calories as well as sedentary lifestyle, very likely
-Continue flovent
-Will follow up with Pulm in outpatient setting
#FAITH/OHS (suspect primary etiology)
-CXR without PNA
-Acapella, IS
-pulm saw in c/s
-Pulmicort and DuoNebs ATC added
-CT chest showed bibasilar atelectasis/scarring. Chronic compression deformity of T7 and T10.
-NC O2 support
-Echo with preserved EF
#Fibromyalgia
#Chronic Pain Syndrome
#Anxiety/Depression
-Continue management as needed
-Holding sedating meds as noted above
-Restarted oxycodone but hasn't required since 06/11
-holding nortriptyline
#Normocytic Anemia
-No evident source of blood loss
-Monitor
#DM2
- HbA1c at 7.1%, continue with Accu-Cheks.
- Insulin Sliding scale. Decrease Lantus
#Paroxysmal Atrial Fibrillation: cont BB/Eliquis
#GERD/PUD: cont PPI
FULL/Eliquis
Anticipated Discharge: Within 24 hours
Subjective/Interval History
-
Date of Service: June 20, 2024
Patient was not very responsive to commands but was aware of me asking her questions. Seemed very somnolent and tired still but was more alert than yesterday. Nurse reports no adverse events overnight.
Objective Data
-
Labs:
Laboratory Results
06/20/24
07:09
WBC Pending
Hgb Pending
Hct Pending
Plt Count Pending
Sodium Pending
Potassium Pending
Chloride Pending
Carbon Dioxide Pending
BUN Pending
Creatinine Pending
Glucose Pending
Calcium Pending
Total Bilirubin Pending
AST Pending
ALT Pending
Alkaline Phosphatase Pending
Vital Signs:
Vital Signs
Temp Pulse Resp BP Pulse Ox
98.9 F 83 18 153/61 98
06/19/24 23:20 06/19/24 23:20 06/19/24 23:20 06/19/24 23:20 06/19/24 23:20
I&O
06/19/24 06/20/24 06/21/24
06:59 06:59 06:59
Intake Total 480 / 480 240 / 240
Balance 480 / 480 240 / 240
Review of Systems
-
Unable to obtain full review of systems at this time due to: Acuity
History Source: Patient
Constitutional: Reports Fatigue and Weakness; Denies No Appetite or Sleep Disturbance
EENT: Reports No Symptoms Reported
Respiratory: Denies Cough or Trouble Breathing
Cardiac: Denies Chest Pain or Syncope
Abdomen/GI: Denies Abdominal Pain, Nausea or Vomiting
Genitourinary: Reports No Symptoms
Musculoskeletal: Reports No Symptoms
Skin: Reports No Symptoms
Neuro: Reports No Symptoms
Endocrine: Reports No Symptoms
Hematologic / Lymphatic: Reports No Symptoms
Allergy / Immunology: Reports No Symptoms
Physical Exam
-
General: No Apparent Distress and Comfortable
HEENT: Normocephalic, Atraumatic and Moist Mucous Membranes
Respiratory: Clear to Auscultation and Non Labored Respirations
Cardiac: Regular Rhythm and S1/S2
GI: Soft, Nontender and Nondistended
Musculoskeletal: No Clubbing, No Cyanosis and No Edema
Skin: Warm and Dry
Neuro: Awake and Alert
Psych: Calm and Confused
Data Reviewed
-
Labs: Labs Reviewed by me, Discussed with Physician, Discussed with Nurse and Discussed with Patient
[2024-06-20] MEDS: FLOVENT 110 MCG INHALER INH (07:58)
[2024-06-20 08:01] LABS: Hematocrit 35.6 % (37.0-47.0); Hemoglobin 11.9 g/dL (12.0-16.0); Mean Corp Hgb Conc. 33.4 g/dL (33.0-37.0); Mean Corpuscular Volume 86.8 fL (81.0-99.0); Mean Platelet Volume 9.7 fL (7.4-10.4); Platelet Count 348 10^3/uL (130-400); Red Cell Dist. Width 14.8 % (11.5-14.5); White Blood Cell Count 8.7 10^3/uL (4.8-10.8)
[2024-06-20 08:11] LABS: Glucose - Point of Care 182 mg/dl (70-99)
[2024-06-20 08:21] VITALS: BP 144/73
[2024-06-20 08:29] LABS: ALT (SGPT) 14 U/L (0-35); AST (SGOT) 22 U/L (14-36); Alkaline Phosphatase 89 U/L (38-126); Blood Urea Nitrogen 4 mg/dl (7-17); Calcium 8.7 mg/dl (8.4-10.2); Carbon Dioxide 30 mmol/L (22-30); Chloride 91 mmol/L (98-107); Estimated Creatinine Clearance 72 ml/min; Glucose 156 mg/dl (70-99); Potassium 3.9 mmol/L (3.5-5.1); Sodium 127 mmol/L (135-145); Total Bilirubin 0.6 mg/dl (0.2-1.3); Total Protein 5.6 g/dl (6.3-8.2); eGFR > 60.00
--- NOTE | 2024-06-20 10:34 | W.PN.UPDATE ---
Addendum entered and electronically signed by Adam Taylor MD 06/20/24 13:35:
Correction to subjective and physical exam:
Patient without acute complaints.
Gen: remains NAD, awake and alert but not oriented, NCAT
Eyes: EOMI, PERRLA, no scleral icterus.
Neck: supple.
CV: continues to remain RRR, +S1/S2, no m/r/g.
Resp: remains CTAB anteriorly, no rales, wheezes, or rhonchi.
Abd: +BS, soft, NT, ND
Skin: No rashes.
Neuro: CN 2-12 intact, non-focal, dyskinetic movements.
Psych: Normal mood and affect.
Original Note:
Update Note
Progress Note Update
I saw and evaluated the patient. I reviewed the resident�s note and agree with findings and plan as documented in the resident�s note.
Patient currently not answering questions. As per nursing the patient is frequently this way in the morning.
Gen: NAD, awake and alert but not oriented, NCAT
Eyes: EOMI, PERRLA, no scleral icterus.
Neck: supple.
CV: remains RRR, +S1/S2, no m/r/g.
Resp: CTAB anteriorly, no rales, wheezes, or rhonchi.
Abd: +BS, soft, NT, ND
Skin: No rashes.
Neuro: CN 2-12 intact, non-focal, dyskinetic movements.
Psych: Normal mood and affect.
06/15/24 10:26 Urine Urine Culture - Final
06/15/24 01:58 Urine Urine Culture - Final
Streptococcus agalactiae
06/11/24 03:44 Nasal Swab Respiratory Syncytial Virus Culture - Final
Negative for Respiratory Syncytial Virus.
A false negative result may be obtained with a specimen
collected early in the acute phase. If symptoms persist, a
new specimen should be tested.
12/27/24 15:48 Nasal Swab Influenza Types A & B (EUGENIA) - Final
Negative for Influenza A & B, NAAT
Negative results must be combined with clinical observations
and patient history.
Nucleic Acid Amplification test (NAAT)performed on the
[employer] platform.
CXR: Mild elevation of the left hemidiaphragm with left greater than right bibasilar opacities favored to represent chronic atelectasis/scarring.
Echo: Normal left ventricular chamber size. Normal left ventricular systolic function. Normal left ventricular wall thickness. Normal regional wall motion. Left ventricular ejection fraction is 60-65%. Mild to moderate aortic regurgitation. Compared
to the previous echo from Jun 2016, [place] was mild at that time.
CT chest: Mild elevation of the left hemidiaphragm with left greater than right bibasilar atelectasis/scarring. No evidence of pneumonia or pulmonary edema. Small hiatal hernia. Chronic compression deformities of the T7 and T10 vertebral bodies
with mild loss of height of the T7 vertebral body and moderate loss of height of the T10 vertebral body.
MRI brain:
1. No MRI evidence for acute infarct.
2. Small chronic lacunar infarcts in the head of the right caudate nucleus and right putamen.
3. Small amount of chronic intraparenchymal hemorrhage in the left putamen.
4. Mild periventricular white matter leukoaraiosis in the frontal and parietal lobes.
5. Mild to moderate diffuse cerebral and cerebellar volume loss.
6. Large amount of central signal abnormality in the david and moderate symmetric signal abnormality in the thalami. OSMOTIC DEMYELINATION SYNDROME is a diagnostic possibility given hyponatremia. Chronic microvascular ischemic disease is an
alternative diagnostic possibility.
Acute toxic metabolic encephalopathy:
-Likely due to adverse effects of medications, possible now acute psychosis from steroids and UTI
-Patient is agitated at times; steroids were stopped
-holding sedating meds
-currently saturating well on 2L NC O2 (baseline O2)
-TSH/B12 normals
-neuro following
-EEG: moderate generalized cerebral dysfunction due to toxic, metabolic, or infectious etiology
-MRI brain findings noted, central pontine myelinolysis seems extremely unlikely considering the patient's Na trend as well as the fact that her change in mental status occurred prior to 3% NS administration
-as per discussion with Dr. Vidales 06/19/24AM pt is medically cleared for d/c from her standpoint. She did recommend checking ABG prior to discharge which was ordered 06/19/24 but respiratory unable to complete despite 2 respiratory therapists trying 2
times each.
Hyponatremia:
-Na worsening, now 127
-Lasix 20mg daily started 06/19/24
-renal following
Chronic hypoxemic respiratory failure:
-on 2L nasal cannula at baseline
-h/o tracheomalacia
-underlying asthma however does not have acute exacerbation
-underlying morbid obesity due to excess calories as well as sedentary lifestyle, very likely FAITH/OHS (suspect primary etiology)
-CT chest and echo above, unremarkable
-Acapella, IS
-pulm saw in c/s
-cont flovent
Other problems:
Fibromyalgia, Chronic Pain Syndrome, Anxiety/Depression: cont Cymbalta. Home nortriptyline on hold for acute toxic metabolic encephalopathy as above.
UTI: completed 3 days Rocephin
Normocytic Anemia: No evident source of blood loss, Hb stable
DM2: a1c 7.1%, cont Lantus/SSI/Accu-Cheks
Paroxysmal Atrial Fibrillation: cont BB/Eliquis
GERD/PUD: cont PPI
FULL/Eliquis
--- NOTE | 2024-06-20 10:36 | CM ---
Addendum entered by Cecilia Robertson 06/20/24 15:57:
Disregard last addendum- PT DOES NOT NEED AIR MATTRESS
Addendum entered by Cecilia Robertson 06/20/24 15:51:
Per nurse, pt will need air mattress at SNF.
CM updated Jaki/[facility]. Per Jaki, will check to see if this can be supported
CM updated [facility] w/ clinicals
Original Note:
CM spoke w/ pt's spouse regarding d/c plan. Pt is being recommended for SNF at this time. Per spouse, he is considering only [facility] at this time as pt has been there multiple times for rehab. CM encouraged some more options in case [facility] does not have any availability. Per spouse, if CM has any push back, he is able to call and see if facility can accept since pt is familiar to them.
CM sent referral to [facility], await determination
Will need auth
Plan: SNF; spouse prefers [facility]. CM will await facility determination and auth once an accepting facility is found
[2024-06-20] MEDS: ROXICODONE 5 MG PO (10:52)
[2024-06-20] MEDS: TOPROL XL 25 MG PO (10:53)
[2024-06-20] MEDS: PROTONIX 40 MG PO (10:53)
[2024-06-20] MEDS: CYMBALTA DELAYED RELEASE 60 MG PO (10:53)
[2024-06-20] MEDS: LIPITOR 10 MG PO (10:53)
[2024-06-20] MEDS: OCUVITE SOFTGEL 1 CAP PO ×2 (10:53→19:49)
[2024-06-20] MEDS: NOVOLOG FLEXPEN-LOW RESISTANCE SC (10:54)
[2024-06-20] MEDS: LASIX 20 MG PO (10:54)
[2024-06-20] MEDS: COZAAR 25 MG PO (10:54)
[2024-06-20] MEDS: ELIQUIS 5 MG PO ×2 (10:54→19:49)
[2024-06-20] MEDS: LIDOCAINE 4% PATCH 1 PATCH TOPICAL (10:55)
[2024-06-20] MEDS: MIRALAX PO (10:55)
--- NOTE | 2024-06-20 11:18 | W.PN.NEURO.1 ---
Today's Communication / Plan
-
.
Subjective/Objective
Subjective Data
Date of Service: June 20, 2024
Neurology follow-up note
24-hour events: Tachycardic in the morning, afebrile.
According to Mr. Saez the patient was able to hold conversation and was back to cognitive baseline yesterday afternoon when she was visited. As per medical personnel Ms. Saez does not engage in conversation in the mornings until she wakes up
around noon.
Na 127, ammonia�less than 9, CK�37, normal TSH.
MAR: Oxycodone 5 mg given on 06/19/24 at 18:06
PMH: Paroxysmal A-fib, DM, chronic opioid use, chronic hypoxic respiratory failure, COPD, diabetes, fibromyalgia, GERD, anemia, [place], BMI 38
PSH: InterStim , Hiatal Hernia repair / Fundoplication, partial small bowel resection, cholecystectomy, hysterectomy, left knee arthroscopy, bladder lift
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
All: Amoxicillin, clarithromycin, diazepam, fentanyl, hydromorphone, iodine, levofloxacin, methylprednisolone, morphine, potassium chloride
ROS: Unable due to encephalopathy
General: Well developed. In no acute distress.
Cardio: Regular rate and rhythm without murmur. Extremities are without cyanosis or edema.
Neuro:
The patient attended to the examiner and was awake upon arrival. Shortly after she closed her eyes and started shaking her head from [id number]-[id number] as well as move her legs and arms within bed plane. She did not follow requests and resisted rest of
the exam.
Assessment and Plan:
I. Multifactorial encephalopathy (metabolic (hyponatremia), infectious).
II. Mood disorder, NOS
III. Cerebral microvascular disease
IV. Paroxysmal A-fib
V. Hyponatremia
-Aspiration precautions
-Continue Eliquis for stroke prophylaxis
-DVT prophylaxis
-Please recall neurology services any questions or concerns
I personally reviewed all radiology and labs along with past medical records pertinent to current medical problems. Total time spent in patient care is 36 minutes.
Thank you for allowing us to participate in the care of this patient. Please do not hesitate to contact us with any questions or concerns.
Objective Data
Vital Signs
Temp Pulse Resp BP Pulse Ox
36.9 C 101 20 144/73 96
06/20/24 08:21 06/20/24 08:21 06/20/24 08:21 06/20/24 08:21 06/20/24 09:55
Lab Results
06/20/24 07:09
06/20/24 07:09
Sodium 127 mmol/L (135-145) L 06/20/24 07:09
Potassium 3.9 mmol/L (3.5-5.1) 06/20/24 07:09
BUN 4 mg/dl (7-17) L 06/20/24 07:09
Glucose 156 mg/dl (70-99) H 06/20/24 07:09
Calcium 8.7 mg/dl (8.4-10.2) 06/20/24 07:09
Vzr-B-Ssfyvpiedrq Pept 219 pg/ml 06/08/24 23:58
Vitamin B12 902 pg/ml (239-931) 06/09/24 06:56
Patient Allergies
amoxicillin trihydrate [From Augmentin] Allergy (Verified 06/08/24 15:35)
Nausea / Vomiting
clarithromycin [From Biaxin] Allergy (Verified 06/08/24 15:35)
Nausea / Vomiting
clindamycin Allergy (Verified 06/08/24 15:35)
Nausea / Vomiting
diazepam Allergy (Verified 06/08/24 15:35)
HEADACHE
fentanyl Allergy (Verified 06/08/24 15:35)
hallucination
hydromorphone HCl [From Dilaudid] Allergy (Verified 06/08/24 15:35)
Itching
Iodinated Contrast Media [IV Dye, Iodine Containing Contrast ] Allergy (Verified 06/08/24 15:35)
Tongue Swelling
iodine [Iodine] Allergy (Verified 06/08/24 15:35)
Itchy Rash
levofloxacin [From Levaquin] Allergy (Verified 06/08/24 15:35)
REDNESS AND ITCHING AT IV SITE
methylprednisolone [From Medrol] Allergy (Verified 06/08/24 15:35)
HEADACHE
morphine [Morphine] Allergy (Verified 06/08/24 15:35)
SEVERE ITCH,RED RASH
potassium clavulanate [From Augmentin] Allergy (Verified 06/08/24 15:35)
Nausea / Vomiting
STEROIDS Allergy (Uncoded 06/08/24 15:35)
MIGRAINES
Vital Signs and Labs
-
Vital Signs and Labs:
Vital Signs
Temp Pulse Resp BP Pulse Ox
36.9 C 101 20 144/73 96
06/20/24 08:21 06/20/24 08:21 06/20/24 08:21 06/20/24 08:21 06/20/24 09:55
Lab Results
06/20/24 07:09
06/20/24 07:09
Sodium 127 mmol/L (135-145) L 06/20/24 07:09
Potassium 3.9 mmol/L (3.5-5.1) 06/20/24 07:09
BUN 4 mg/dl (7-17) L 06/20/24 07:09
Glucose 156 mg/dl (70-99) H 06/20/24 07:09
Calcium 8.7 mg/dl (8.4-10.2) 06/20/24 07:09
Oiu-K-Hktdklqicei Pept 219 pg/ml 06/08/24 23:58
Vitamin B12 902 pg/ml (239-931) 06/09/24 06:56
Medications
-
Medications:
Generic Name Dose Route Start Last Admin
Trade Name Freq PRN Reason Stop Dose Admin
Acetaminophen 650 mg 06/09/24 01:38 06/19/24 21:00
Acetaminophen 325 Mg Tablet PO 07/07/24 01:37 650 mg
Q4HPRN PRN Administration
Mild Pain / Temp > 101
Albuterol Sulfate 2.5 mg 06/09/24 01:38 06/10/24 00:56
Albuterol Nebs 2.5 Mg/3 Ml Ampul INH 2.5 mg
R Q4HPRN PRN Administration
SOB
Protocol
Apixaban 5 mg 06/09/24 08:00 06/20/24 10:54
Apixaban (Eliquis) 5 Mg Tablet PO 07/07/24 07:59 5 mg
BID NORMA Administration
Atorvastatin Calcium 10 mg 06/09/24 08:00 06/20/24 10:53
Atorvastatin (Lipitor) 10 Mg Tablet PO 07/07/24 07:59 10 mg
DAILY NORMA Administration
Benzonatate 200 mg 06/09/24 03:14 06/19/24 21:00
Benzonatate 100 Mg Capsule PO 07/07/24 03:13 200 mg
TID PRN Administration
Cough
Dextrose 12.5 grams 06/09/24 01:38
Dextrose 50% (0.5 Grams/Ml) 50 Ml Syringe IV 07/07/24 01:37
[id number] PRN
hypoglycemia
Protocol
Duloxetine HCl 60 mg 06/09/24 08:00 06/20/24 10:53
Duloxetine Delayed Release 60 Mg Capsule PO 07/07/24 07:59 60 mg
BID NORMA Administration
Famotidine 40 mg 06/09/24 22:00 06/19/24 20:37
Famotidine 40 Mg Tablet PO 07/07/24 21:59 40 mg
HS NORMA Administration
Fluticasone Propionate 2 puff 06/09/24 08:00 06/20/24 07:58
Fluticasone 110mcg Inhaler INH 07/07/24 07:59 Not Given
R BID NORMA
Furosemide 20 mg 06/19/24 17:00 06/20/24 10:54
Furosemide 20 Mg Tablet PO 07/17/24 16:59 20 mg
DAILY NORMA Administration
Glucagon 1 mg 06/09/24 01:38
Glucagon 1 Mg Vial IM 07/07/24 01:37
PRN PRN
hypoglycemia
Protocol
Hydralazine HCl 5 mg 06/14/24 09:21 06/14/24 22:26
Hydralazine 20 Mg/Ml Vial IV 07/12/24 09:20 5 mg
Q6HPRN PRN Administration
SBP>160
Insulin Glargine 4 units/ 0.04 mls @ 0 mls/hr 06/18/24 14:03 06/19/24 22:14
Device SC 07/14/24 09:07 0.04 mls
HS NORMA Administration
As Directed
Insulin Aspart 0 units 06/09/24 07:30 06/20/24 10:54
Insulin Aspart Low Resistance 300 Units/3 Ml Pen.Injctr SC 07/07/24 07:29 Not Given
AC NORMA
Protocol
Lidocaine 1 patch 06/12/24 01:45 06/20/24 10:55
Lidocaine 4% Topical Patch TOPICAL 07/10/24 01:44 1 patch
DAILY NORMA Administration
Protocol
Losartan Potassium 25 mg 06/11/24 14:00 06/20/24 10:54
Losartan 25 Mg Tablet PO 07/09/24 13:59 25 mg
DAILY NORMA Administration
Metoprolol Succinate 25 mg 06/09/24 08:00 06/20/24 10:53
Metoprolol 25 Mg Extended Release Tablet PO 07/07/24 07:59 25 mg
DAILY NORMA Administration
Ondansetron HCl 4 mg 06/10/24 17:16 06/11/24 22:55
Ondansetron 4 Mg/2 Ml Vial IV 07/08/24 17:15 4 mg
Q6HPRN PRN Administration
NAUSEA/VOMITING
Oxycodone HCl 5 mg 06/11/24 10:21 06/20/24 10:52
Oxycodone 5 Mg Regular Release Tablet PO 06/25/24 10:20 5 mg
TIDPRN PRN Administration
moderate to severe pain
Pantoprazole Sodium 40 mg 06/09/24 08:00 06/20/24 10:53
Pantoprazole 40 Mg Delayed Release Tablet PO 07/07/24 07:59 40 mg
DAILY NORMA Administration
Polyethylene Glycol 17 grams 06/12/24 10:00 06/20/24 10:55
Polyethylene Glycol Powder 17 Grams Packet PO 07/10/24 09:59 Not Given
DAILY NORMA
Sodium Chloride 0 flush 06/09/24 04:00 06/10/24 17:56
Sodium Chloride 0.9% (Flush) Syringe IV 07/07/24 03:59 2 flush
PER PROTOCOL NORMA Administration
Vitamin C/Vitamin E 1 cap 06/09/24 08:00 06/20/24 10:53
Vit C/Vit E/Lutein/Min/[place]-3 (Ocuvite) Capsule PO 07/07/24 07:59 1 cap
BID NORMA Administration
Home Medications
-
Home Medications
ccyyl-6x-fpn-epa-fish oil 120 mg-180 mg-60 mg-1,200 mg capsule, DR (Fish Oil) 1,200 mg PO DAILY Supplement 07/07/15
pantoprazole 40 mg tablet,delayed release 40 mg PO DAILY gastric erosions 05/28/18
vitamins A,C,O-hyhh-qynofo 4,296 mcg-226 mg-90 mg capsule (PreserVision AREDS) 1 cap PO BID Supplement 05/28/18
atorvastatin 10 mg tablet 10 mg PO DAILY High cholesterol 05/08/21
dicyclomine 10 mg capsule 10 mg PO BIDPRN PRN cramping 05/08/21
duloxetine 60 mg capsule,delayed release 60 mg PO BID DEPRESSION/PAIN 05/08/21
insulin aspart U-100 100 unit/mL (3 mL) subcutaneous pen (Novolog FlexPen U-100 Insulin aspart) 8 units SC AC Diabetes 05/08/21
albuterol sulfate 90 mcg/actuation aerosol inhaler (Ventolin HFA) 2 puff inhalation R Q6HPRN PRN SOB 08/12/22
montelukast 10 mg tablet 10 mg PO HS Lung/Breathing Issues 08/12/22
nortriptyline 50 mg capsule 50 mg PO HS Mental Health/Anxiety 08/12/22
benzonatate 200 mg capsule 200 mg PO TID Cough 08/16/22
cholecalciferol (vitamin D3) 50 mcg (2,000 unit) tablet (Vitamin D3) 50 mcg PO DAILY Supplement 05/10/23
docusate sodium 100 mg capsule (Colace) 100 mg PO NOON STOOL SOFTENER 05/10/23
insulin degludec 100 unit/mL (3 mL) subcutaneous pen (Tresiba FlexTouch U-100 insulin) 15 unit SC HS Diabetes 05/10/23
ramelteon 8 mg tablet 8 mg PO HS 05/10/23
apixaban 5 mg tablet (Eliquis) 5 mg PO BID Blood Clot Prevention/Tx 06/08/24
calcium carbonate (Calcium 600) 600 mg PO BID Supplement 06/08/24
famotidine 40 mg tablet 40 mg PO HS Gastrointestinal Issue 06/08/24
fluticasone furoate 200 mcg/actuation blister powder for inhalation (Arnuity Ellipta) 1 inh inhalation R HS Lung/Breathing Issues 06/08/24
fluticasone propionate 50 mcg/actuation nasal spray,suspension 1 spray intranasal HS NASAL CONGESTION 06/08/24
ipratropium 0.5 mg-albuterol 3 mg (2.5 mg base)/3 mL nebulization soln 3 ml inhalation R TIDPRN PRN sob 06/08/24
lidocaine 4 % topical cream 1 applic topical BID R knee 06/08/24
losartan 25 mg tablet 25 mg PO DAILY Blood Pressure 06/08/24
metoprolol succinate 25 mg tablet,extended release 24 hr 25 mg PO DAILY Blood Pressure 06/08/24
nystatin 100,000 unit/gram topical powder 1 applic topical BID abd folds, groin, chest 06/08/24
polyethylene glycol 3350 17 gram oral powder packet (Miralax) 17 g PO DAILYPRN PRN constipation 06/08/24
psyllium 1 packet PO DAILY Gastrointestinal Issue 06/08/24
[2024-06-20 12:25] LABS: Glucose - Point of Care 212 mg/dl (70-99)
[2024-06-20 13:36] VITALS: BP 124/58; PULSE 92; O2SAT 98
[2024-06-20 13:41] VITALS: BP 124/58; PULSE 93; O2SAT 99
--- NOTE | 2024-06-20 14:01 | W.PN.NEPH.PH ---
Today's Communication / Plan
-
low dose samsca
Assessment/Plan
-
Impression:
Acute hypoxic respiratory insufficiency
chronic home oxygen
Mental status change
asthma
COPD
Hyponatremia
Diabetes mellitus type II
Fibromyalgia
GERD/PUD
Anemia
Paroxysmal atrial fibrillation
Plan/recommendations
She has excess ADH.
sodium down to 127 today
note she is on high dose of Duloxetine too-may need to be adjusted as sodium seem to difficult to maintain
Will maintain on 48 ounce fluid restriction for now
cont 20 mg of Lasix daily with FR
dose samca today
MS seem baseline
BP stable
follow bladder scan while bladder stimulator turned off
-
-
Date of Service: June 20, 2024
CC / HPI / ROS
-
Chief Complaint:
hyponatremia
History of Present Illness:
sodium down to 127
Bp stable
UOP not measured
wt decreasing
Review of Systems:
no c/o cp or sob
no n/v, on pureed diet
feels well
Labs
-
Labs:
WBC 8.7 10^3/uL (4.8-10.8) 06/20/24 07:09
RBC 4.10 10^6/uL (4.20-5.40) L 06/20/24 07:09
Hgb 11.9 g/dL (12.0-16.0) L 06/20/24 07:09
Hct 35.6 % (37.0-47.0) L 06/20/24 07:09
Plt Count 348 10^3/uL (130-400) 06/20/24 07:09
Sodium 127 mmol/L (135-145) L 06/20/24 07:09
Potassium 3.9 mmol/L (3.5-5.1) 06/20/24 07:09
Chloride 91 mmol/L (98-107) L 06/20/24 07:09
Carbon Dioxide 30 mmol/L (22-30) 06/20/24 07:09
BUN 4 mg/dl (7-17) L 06/20/24 07:09
Creatinine 0.4 mg/dL (0.6-1.0) L 06/20/24 07:09
eGFR > 60.00 06/20/24 07:09
Glucose 156 mg/dl (70-99) H 06/20/24 07:09
Calcium 8.7 mg/dl (8.4-10.2) 06/20/24 07:09
Swt-J-Oaflksmrkcv Pept 219 pg/ml 06/08/24 23:58
Albumin 3.0 g/dl (3.5-5.0) L 06/20/24 07:09
Physical Exam
-
Vital Signs:
Vital Signs
Temp Pulse Resp BP Pulse Ox
98.4 F 101 20 144/73 96
06/20/24 08:21 06/20/24 08:21 06/20/24 08:21 06/20/24 08:21 06/20/24 13:06
Cardiovascular:: Regular rate and rhythm
Respiratory:: Bilateral: CTA
Lung Excursion:: Normal
Abdomen:: Nontender and Soft
Extremity Edema:: None: Bilateral:
Reece Catheter: No
[2024-06-20] MEDS: NOVOLOG FLEXPEN-LOW RESISTANCE 2 UNITS SC ×2 (14:06→17:16)
[2024-06-20] MEDS: SAMSCA 7.5 MG PO (14:52)
[2024-06-20 15:57] VITALS: BP 133/65
[2024-06-20 17:03] LABS: Glucose - Point of Care 247 mg/dl (70-99)
[2024-06-20] MEDS: PEPCID 40 MG PO (19:49)
[2024-06-20] MEDS: FLOVENT 110 MCG INHALER 2 PUFF INH (19:51)
[2024-06-20] MEDS: CYMBALTA DELAYED RELEASE 30 MG PO (20:44)
[2024-06-20 21:17] LABS: Glucose - Point of Care 233 mg/dl (70-99)
[2024-06-20] MEDS: TESSALON PERLES 200 MG PO (21:27)
[2024-06-20] MEDS: LANTUS 0.04 UNITS SC (22:39)
[2024-06-20] MEDS: ZOFRAN 4 MG IV (22:40)
[2024-06-20 23:21] VITALS: BP 131/86
[2024-06-21 04:42] VITALS: BMI 37.5
[2024-06-21] MEDS: TYLENOL 650 MG PO ×2 (04:49→22:05)
[2024-06-21 06:52] VITALS: BP 149/79
--- NOTE | 2024-06-21 07:46 | W.PN.HOSP.TC ---
Today's Communication/Plan
-
Continue to monitor patient's mental status. Awaiting labs to see if dose of SAMSCA improved patient's sodium levels.
Assessment / Plan
Assessment / Plan
Assessment:
Patient is an 84y F with PMH significant for COPD, chronic hypoxemia, DM-II, fibromyalgia and anxiety / depression who presents to ED for evaluation of cough, SOB and fatigue. Patient was found to be somnolent and diagnosed with Acute toxic
metabolic encephalopathy suspected to be secondary to her medications. Patient's sedating medications were held and patient's breathing seemed to have improved.
Plan:
#Acute toxic metabolic encephalopathy
-suspect likely secondary to TME from medications, possible now acute psychosis from steroids and UTI
-Patient is agitated at times; steroids now stopped
-VBG 06/09/24AM 7.36/58/107
-Repeat VBG 06/14/2024 7.40/41/65
-Chest x-ray without pneumonia
-UA suggestive of UTI
-holding sedating meds
-Maintaining good O2 saturation On 2L NC O2
-TSH/B12 within normal range
-hx of CVA;check CT head without CVA.
-Neuro consulted, input appreciated
-MRI (06/17/2024)
1. No MRI evidence for acute infarct.
2. Small chronic lacunar infarcts in the head of the right caudate nucleus and right putamen.
3. Small amount of chronic intraparenchymal hemorrhage in the left putamen.
4. Mild periventricular white matter leukoaraiosis in the frontal and parietal lobes.
5. Mild to moderate diffuse cerebral and cerebellar volume loss.
6. Large amount of central signal abnormality in the david and moderate symmetric signal abnormality in the thalami. OSMOTIC DEMYELINATION SYNDROME is a diagnostic possibility given hyponatremia. Chronic microvascular ischemic disease is an
alternative diagnostic possibility.
-central pontine myelinolysis seems extremely unlikely due to symptoms occurring before sodium correction
-alternative diagnosis is Chronic microvascular ischemic disease
-Speech following, recommended regular diet with thin liquids
-ABG ordered but unable to get sample as of yet
-Low dose SAMSCA given yesterday. Monitor BMP for any improvement in sodium
#UTI
-diagnosed via UA
-Completed course ceftriaxone; given sx will treat for 3 days total
-urine cx pending
-15,000 CFU/ML Streptococcus agalactiae*
-Monitor for any further symptoms
#Hyponatremia
-monitor
-Fluid restriction and follow BMP
-Started on PO Lasix 20mg
-Nephrology following, input appreciated
-Sodium continues to trend down, probbale to ADH excess?
-Low dose SAMSCA given yesterday. Monitor BMP for any improvement in sodium
#Chronic hypoxemic respiratory failure, on 2 L nasal cannula
-underlying asthma however now does not suspect acute exacerbation
-History of tracheomalacia
-underlying morbid Obesity due to excess calories as well as sedentary lifestyle, very likely
-Continue flovent
-Will follow up with Pulm in outpatient setting
#FAITH/OHS (suspect primary etiology)
-CXR without PNA
-Acapella, IS
-pulm saw in c/s
-Pulmicort and DuoNebs ATC added
-CT chest showed bibasilar atelectasis/scarring. Chronic compression deformity of T7 and T10.
-NC O2 support
-Echo with preserved EF
#Fibromyalgia
#Chronic Pain Syndrome
#Anxiety/Depression
-Continue management as needed
-Holding sedating meds as noted above
-Restarted oxycodone but hasn't required since 06/11
-holding nortriptyline
#Normocytic Anemia
-No evident source of blood loss
-Monitor
#DM2
- HbA1c at 7.1%, continue with Accu-Cheks.
- Insulin Sliding scale. Decrease Lantus
#Paroxysmal Atrial Fibrillation: cont BB/Eliquis
#GERD/PUD: cont PPI
FULL Code
DVT Prophylaxis: Eliquis
Anticipated Discharge: Within 24 hours
Subjective/Interval History
-
Date of Service: June 21, 2024
Patient more alert and awake today. Was able to have a conversation with her today as compared to the past two days. She says she is feeling better and would like to get out of the hospital soon.
Objective Data
-
Labs:
Laboratory Results
06/21/24
07:40
Sodium Pending
Potassium Pending
Chloride Pending
Carbon Dioxide Pending
BUN Pending
Creatinine Pending
Glucose Pending
Calcium Pending
Vital Signs:
Vital Signs
Temp Pulse Resp BP Pulse Ox
98.6 F 85 18 131/86 100
06/20/24 23:21 06/20/24 23:21 06/20/24 23:21 06/20/24 23:21 06/20/24 23:21
I&O
06/20/24 06/21/24 06/22/24
06:59 06:59 06:59
Intake Total 240 / 240 360 / 360
Balance 240 / 240 360 / 360
Review of Systems
-
Unable to obtain full review of systems at this time due to: Acuity
History Source: Patient
Constitutional: Denies Fatigue, Sleep Disturbance or Weakness
EENT: Reports No Symptoms Reported
Respiratory: Denies Cough or Trouble Breathing
Cardiac: Denies Chest Pain, Palpitations or Syncope
Abdomen/GI: Denies Abdominal Pain, Nausea or Vomiting
Genitourinary: Reports No Symptoms
Musculoskeletal: Reports No Symptoms
Skin: Reports No Symptoms
Neuro: Reports No Symptoms
Endocrine: Reports No Symptoms
Hematologic / Lymphatic: Reports No Symptoms
Allergy / Immunology: Reports No Symptoms
Physical Exam
-
General: No Apparent Distress, Comfortable and Conversant
HEENT: Normocephalic, Atraumatic and Moist Mucous Membranes
Respiratory: Clear to Auscultation and Non Labored Respirations
Cardiac: Regular Rhythm and S1/S2
GI: Soft, Nontender, Nondistended and Normal Bowel Sounds
Musculoskeletal: No Clubbing, No Cyanosis and No Edema
Skin: Warm and Dry
Neuro: Awake, Alert, No Motor Deficits and No Sensory Deficits
Psych: Calm
Data Reviewed
-
Labs: Labs Reviewed by me, Discussed with Physician, Discussed with Nurse and Discussed with Patient
[2024-06-21 08:15] LABS: Glucose - Point of Care 182 mg/dl (70-99)
[2024-06-21] MEDS: FLOVENT 110 MCG INHALER INH (08:32)
--- NOTE | 2024-06-21 09:25 | W.PN.UPDATE ---
Update Note
Progress Note Update
I saw and evaluated the patient. I reviewed the resident�s note and agree with findings and plan as documented in the resident�s note.
Patient without acute complaints.
Gen: continues to remain NAD, awake and alert but not oriented, NCAT
Eyes: EOMI, PERRLA, no scleral icterus.
Neck: supple.
CV: RRR, +S1/S2, no m/r/g.
Resp: remains CTAB anteriorly, no rales, wheezes, or rhonchi.
Abd: remains +BS, soft, NT, ND
Skin: No rashes.
Neuro: CN 2-12 intact, non-focal, dyskinetic movements.
Psych: Normal mood and affect.
06/15/24 10:26 Urine Urine Culture - Final
06/15/24 01:58 Urine Urine Culture - Final
Streptococcus agalactiae
06/11/24 03:44 Nasal Swab Respiratory Syncytial Virus Culture - Final
Negative for Respiratory Syncytial Virus.
A false negative result may be obtained with a specimen
collected early in the acute phase. If symptoms persist, a
new specimen should be tested.
06/08/24 15:48 Nasal Swab Influenza Types A & B (EUGENIA) - Final
Negative for Influenza A & B, NAAT
Negative results must be combined with clinical observations
and patient history.
Nucleic Acid Amplification test (NAAT)performed on the
[employer]omb[employer] platform.
CXR: Mild elevation of the left hemidiaphragm with left greater than right bibasilar opacities favored to represent chronic atelectasis/scarring.
Echo: Normal left ventricular chamber size. Normal left ventricular systolic function. Normal left ventricular wall thickness. Normal regional wall motion. Left ventricular ejection fraction is 60-65%. Mild to moderate aortic regurgitation. Compared
to the previous echo from Jun 2016, AR was mild at that time.
CT chest: Mild elevation of the left hemidiaphragm with left greater than right bibasilar atelectasis/scarring. No evidence of pneumonia or pulmonary edema. Small hiatal hernia. Chronic compression deformities of the T7 and T10 vertebral bodies
with mild loss of height of the T7 vertebral body and moderate loss of height of the T10 vertebral body.
MRI brain:
1. No MRI evidence for acute infarct.
2. Small chronic lacunar infarcts in the head of the right caudate nucleus and right putamen.
3. Small amount of chronic intraparenchymal hemorrhage in the left putamen.
4. Mild periventricular white matter leukoaraiosis in the frontal and parietal lobes.
5. Mild to moderate diffuse cerebral and cerebellar volume loss.
6. Large amount of central signal abnormality in the david and moderate symmetric signal abnormality in the thalami. OSMOTIC DEMYELINATION SYNDROME is a diagnostic possibility given hyponatremia. Chronic microvascular ischemic disease is an
alternative diagnostic possibility.
Acute toxic metabolic encephalopathy:
-Likely due to adverse effects of medications, possible now acute psychosis from steroids and UTI
-Patient is agitated at times; steroids were stopped
-holding sedating meds
-currently saturating well on 2L NC O2 (baseline O2)
-TSH/B12 normals
-neuro following
-EEG: moderate generalized cerebral dysfunction due to toxic, metabolic, or infectious etiology
-MRI brain findings noted, central pontine myelinolysis seems extremely unlikely considering the patient's Na trend as well as the fact that her change in mental status occurred prior to 3% NS administration
-as per discussion with Dr. Viadles 06/19/24AM pt is medically cleared for d/c from her standpoint. She did recommend checking ABG prior to discharge which was ordered 06/19/24 but respiratory unable to complete despite 2 respiratory therapists trying 2
times each.
Hyponatremia:
-received Samsca yesterday, AM Na pending
-Lasix 20mg daily started 06/19/24
-renal following
Chronic hypoxemic respiratory failure:
-on 2L nasal cannula at baseline
-h/o tracheomalacia
-underlying asthma however does not have acute exacerbation
-underlying morbid obesity due to excess calories as well as sedentary lifestyle, very likely FAITH/OHS (suspect primary etiology)
-CT chest and echo above, unremarkable
-Acapella, IS
-pulm saw in c/s
-cont flovent
Other problems:
Fibromyalgia, Chronic Pain Syndrome, Anxiety/Depression: cont Cymbalta. Home nortriptyline on hold for acute toxic metabolic encephalopathy as above.
UTI: completed 3 days Rocephin
Normocytic Anemia: No evident source of blood loss, Hb stable
DM2: a1c 7.1%, cont Lantus/SSI/Accu-Cheks
Paroxysmal Atrial Fibrillation: cont BB/Eliquis
GERD/PUD: cont PPI
FULL/Eliquis
Medically cleared for d/c if Na improved from yesterday.
Total time spent on d/c = 31 min. This included today's physical exam, progress note, review of laboratory and diagnostic data, preparation of discharge documents and prescriptions, and discussions about the pt's hospital course and discharge plan
with the patient and other medical territory manager involved in the patient's care.
[2024-06-21] MEDS: COZAAR 25 MG PO (09:27)
[2024-06-21] MEDS: LASIX 20 MG PO (09:27)
[2024-06-21] MEDS: OCUVITE SOFTGEL 1 CAP PO ×2 (09:27→22:05)
[2024-06-21] MEDS: LIPITOR 10 MG PO (09:27)
[2024-06-21] MEDS: MIRALAX 17 GRAMS PO (09:27)
[2024-06-21] MEDS: TOPROL XL 25 MG PO (09:27)
[2024-06-21] MEDS: ELIQUIS 5 MG PO ×2 (09:28→22:06)
[2024-06-21] MEDS: NOVOLOG FLEXPEN-LOW RESISTANCE 1 UNITS SC (09:28)
[2024-06-21] MEDS: LIDOCAINE 4% PATCH 1 PATCH TOPICAL (09:28)
[2024-06-21] MEDS: PROTONIX 40 MG PO (09:28)
[2024-06-21] MEDS: CYMBALTA DELAYED RELEASE 30 MG PO ×2 (09:34→22:05)
[2024-06-21 10:06] LABS: Blood Urea Nitrogen 5 mg/dl (7-17); Calcium 8.9 mg/dl (8.4-10.2); Carbon Dioxide 37 mmol/L (22-30); Chloride 92 mmol/L (98-107); Estimated Creatinine Clearance 71 ml/min; Glucose 190 mg/dl (70-99); Potassium 3.9 mmol/L (3.5-5.1); Sodium 134 mmol/L (135-145); eGFR > 60.00
--- NOTE | 2024-06-21 11:29 | CM ---
Addendum entered by Cecilia Robertson 06/21/24 15:56:
[facility]- able to accept
[facility]- able to accept
[facility]- No beds
[facility]- No beds
[facility]- No beds
[facility]- No beds
[facility]- No beds
[facility]- Spoke w/ Aziza. Nurse will review for poss acceptance
[facility]- No female beds
[facility]- No beds
Addendum entered by Cecilia Robertson 06/21/24 15:49:
Per spouse, additional referral sent to [facility]. [facility] has no available beds at this time.
CM discussed w/ spouse needing additional options to consider as pt has a d/c placed at this time. Spouse states he would like to explore in and near [place] area. CM asked if [place] area can be explored, spouse stated [place] is too far
but understands that his requesting area has limited facilities that do not have availability. Spouse agreeable to explore facilities in [place] and [place].
Additional referrals sent to [facility], [facility], [facility], [facility], [facility], [facility], [facility], [facility], [facility], and [facility]
Original Note:
Chart reviewed. SNF preferred, [facility], has no available beds at this time.
CM spoke w/ pt's spouse regarding the need to explore other facilities. Per spouse, he will have to discuss w/ pt and follow up w/ CM. CM did inform spouse that doctor has placed d/c at this time.
Updated hospitalist
Will need auth
CM will await for spouse to share other SNFs to send referrals
Plan: SNF; pending accepting facility and auth.
--- NOTE | 2024-06-21 11:49 | W.DCSUMMARY ---
Discharge Summary
Discharge Data
Date of Admission: 06/09/24
Date of Discharge: 06/21/24
-
Pending Results: No
Hospital Course
Discharging Physician : Dr. Adam Taylor, Dr. Feliz Fitch
Disposition : SNF
Primary care physician : Dr. Akshat Schaefer
Principal Discharge diagnosis : Acute Toxic Metabolic Encephalopathy
Chronic Discharge diagnosis : Chronic Hypoxemic Respiratory Failure, COPD, Fibromyalgia, Anxiety/Depression, DM2, GERD/PUD, Paroxysmal A-Fib, Chronic Pain Syndrome
Hospital Course :
84 year old female with a past medical history of COPD, Chronic Hypoxemia, DM-II, Fibromyalgia, anxiety/depression, and GERD came to the [facility] Emergency Department due to recent history of cough, shortness of breath, and fatigue.
Patient had recently changed her medications at her chcf facility but patient and her family were not sure what changes were made. Patient was admitted to the hospital due to her increased somnolence and shortness of breath. As patient's
symptoms were thought to be caused by her new sedating medications, they were held. Patient's Eliquis had been held by her animal control licensing worker but it was resumed while in the hospital. Patient's breathing was not improving even with her medications being
held so she underwent a CT Chest which showed no evidence of pneumonia or pulmonary edema. She continued to receive respiratory therapy and underwent an echocardiogram which did not show any pertinent findings. As patient continued to be somnolent,
she underwent CT head and neurology was consulted at this time as well. Patient's renal functions were also found to be abnormal and she had low sodium levels. She was thought to have excess ADH by the nephrologists but was not given SAMSCA due to
her mental status. CT scan did not show any acute findings so patient underwent MRI which showed central signal abnormality in the david and moderate symmetric signal abnormality in the thalami. This may have been due to osmotic demyelination
syndrome but not likely. Patient was also found to have a UTI on UA so was given a course of Ceftriaxone. Patient's sodium levels continued to stay abnormal as her mental status continued to wax and wane. As her mental status continued to get
better, patient received a dose of SAMSCA which helped normalize her sodium levels. Patient's condition improved and she was clear to be discharged to a chcf facility. Patient was given instructions to follow up with her PCP and
[facility] in the outpatient setting and also get a BMP test within the next week.
Important imaging findings :
CT Chest W/o Iv Contrast (06/10/2024)
-There is mild elevation of the left hemidiaphragm with left greater than right bibasilar atelectasis/scarring. There is no evidence of pneumonia or pulmonary edema.
-Small hiatal hernia.
-Chronic compression deformities of the T7 and T10 vertebral bodies with mild loss of height of the T7 vertebral body and moderate loss of height of the T10 vertebral body.
CT Head W/o Iv Contrast (06/13/2024)
1. Mild to moderate diffuse cerebral and cerebellar volume loss.
2. Mild periventricular white matter leukoaraiosis in the frontal and parietal lobes.
3. Tiny chronic lacunar infarcts in the head of the right caudate nucleus and right basal ganglia which appear unchanged.
4. No CT evidence for acute intracranial hemorrhage or transcortical infarction.
MR Brain Without Contrast (06/17/2024)
1. No MRI evidence for acute infarct.
2. Small chronic lacunar infarcts in the head of the right caudate nucleus and right putamen.
3. Small amount of chronic intraparenchymal hemorrhage in the left putamen.
4. Mild periventricular white matter leukoaraiosis in the frontal and parietal lobes.
5. Mild to moderate diffuse cerebral and cerebellar volume loss.
6. Large amount of central signal abnormality in the david and moderate symmetric signal abnormality in the thalami. OSMOTIC DEMYELINATION SYNDROME is a diagnostic possibility given hyponatremia. Chronic microvascular ischemic disease is an
alternative diagnostic possibility.
Echocardiogram (06/11/2024)
-Normal left ventricular chamber size. Normal left ventricular systolic function. Normal left ventricular wall thickness. Normal regional wall motion.
-Left ventricular ejection fraction is 60-65%.
-Mild to moderate aortic regurgitation.
-Compared to the previous echo from Jun 2016, AR was mild at that time.
Discharge Plan
-
Patient Disposition: Long-Term/SNF
Discharge Diagnosis/Procedures: Acute toxic metabolic encephalopathy
Condition: Fair
Diet: Regular and Restrict fluids to 48 oz
Additional Diets: Thin Liquids
Activity: With assistance and As tolerated
Driving Restrictions: No driving
Bathing Restrictions: None
Blood Work: BMP in one week, script from PCP
Referrals:
Tabitha Loaiza NP [Specified Professional Personl] - (3-4 weeks (30 min visit))
Akshat Schaefer DO [Family Provider] - in less than 1 week
Prescriptions:
New
furosemide 20 mg Tablet
20 mg PO DAILY 30 Days Qty: 0 0RF
duloxetine 30 mg Capsule,Delayed Release(Dr/Ec)
30 mg PO BID 30 Days Qty: 0 0RF
polyethylene glycol 3350 17 gram Powder In Packet
17 g PO DAILY Qty: 0 0RF
Insulin Glargine Lantus [Lantus] 4 UNITS
Subcutaneous Insulin Syringe [Syringe-Insulin] 0 UNIT
As Directed mls/hr SC HS
Ordered By: Adam Taylor MD
Last Taken: 06/20/24 22:39 0.04 mls
Continued
Fish Oil 1 EACH capsule,delayed release(DR/EC)
1,200 mg PO DAILY
PreserVision AREDS 1 CAP capsule
1 cap PO BID
pantoprazole 40 MG tablet,delayed release (DR/EC)
40 mg PO DAILY
atorvastatin 10 MG tablet
10 mg PO DAILY
dicyclomine 10 MG capsule
10 mg PO BIDPRN PRN (Reason: cramping)
montelukast 10 mg Tablet
10 mg PO HS
albuterol sulfate [Ventolin HFA] 90 mcg/actuation Hfa Aerosol Inhaler
2 puff INHALATION R Q6HPRN PRN (Reason: SOB)
benzonatate 200 mg Capsule
200 mg PO TID
docusate sodium [Colace] 100 mg Capsule
100 mg PO NOON
cholecalciferol (vitamin D3) [Vitamin D3] 50 mcg (2,000 unit) Tablet
50 mcg PO DAILY
ipratropium-albuterol 0.5 mg-3 mg(2.5 mg base)/3 mL Solution For Nebulization
3 ml INHALATION R TIDPRN PRN (Reason: sob)
famotidine 40 mg Tablet
40 mg PO HS
psyllium Packet
1 packet PO DAILY
lidocaine 4 % Cream
1 applic TOPICAL BID
calcium carbonate [Calcium 600] 600 mg calcium (1,500 mg) Tablet
600 mg PO BID
losartan 25 mg Tablet
25 mg PO DAILY
metoprolol succinate 25 mg Tablet Extended Release 24 Hr
25 mg PO DAILY
nystatin 100,000 unit/gram Powder
1 applic TOPICAL BID
fluticasone propionate 50 mcg/actuation [place],Suspension
1 spray INTRANASAL HS
Eliquis 5 mg Tablet
5 mg PO BID
Arnuity Ellipta 200 mcg/actuation Blister With Device
1 inh INHALATION R HS
Discontinued
insulin aspart U-100 [Novolog FlexPen U-100 Insulin] 300 UNITS/3 ML insulin pen
8 units SC AC
duloxetine 60 MG capsule,delayed release(DR/EC)
60 mg PO BID
nortriptyline 50 mg Capsule
50 mg PO HS
ramelteon 8 mg Tablet
8 mg PO HS
insulin degludec [Tresiba FlexTouch U-100] 100 unit/mL (3 mL) Insulin Pen
15 unit SC HS
Patient Comments:
Pt took 'a half dose last PM'
polyethylene glycol 3350 [Miralax] 17 gram Powder In Packet
17 g PO DAILYPRN PRN (Reason: constipation)
Discharge Orders:
Discharge Patient (As Directed); Ordered 06/21/24
Ordered By: Adam Taylor
Discharge Date and Time
Print Language: VIETNAMESE
[2024-06-21 12:33] LABS: Glucose - Point of Care 299 mg/dl (70-99)
[2024-06-21] MEDS: NOVOLOG FLEXPEN-LOW RESISTANCE 3 UNITS SC (12:39)
[2024-06-21 15:30] VITALS: BP 122/56
[2024-06-21 17:11] LABS: Glucose - Point of Care 238 mg/dl (70-99)
[2024-06-21] MEDS: NOVOLOG FLEXPEN-LOW RESISTANCE 2 UNITS SC (17:23)
--- NOTE | 2024-06-21 17:40 | W.PN.NEPH.PH ---
Today's Communication / Plan
-
f/c plan
cont lasix, FR, BMP on Tuesday with PCP
Assessment/Plan
-
Impression:
Acute hypoxic respiratory insufficiency
chronic home oxygen
Mental status change
asthma
COPD
Hyponatremia
Diabetes mellitus type II
Fibromyalgia
GERD/PUD
Anemia
Paroxysmal atrial fibrillation
Plan/recommendations
She has excess ADH.
sodium up at 134 s/p samsca
note she is on high dose of Duloxetine too-dose lowered as sodium seem to difficult to maintain
cont 20 mg of Lasix daily with FR
MS seem baseline
BP stable
encourage solute intake
follow bladder scan while bladder stimulator turned off
-
-
Date of Service: June 21, 2024
CC / HPI / ROS
-
Chief Complaint:
hyponatremia
History of Present Illness:
sodium up at 134
Bp stable
UOP not measured
wt decreasing
Review of Systems:
no c/o cp or sob
no n/v,
feels well
Labs
-
Labs:
WBC 8.7 10^3/uL (4.8-10.8) 06/20/24 07:09
RBC 4.10 10^6/uL (4.20-5.40) L 06/20/24 07:09
Hgb 11.9 g/dL (12.0-16.0) L 06/20/24 07:09
Hct 35.6 % (37.0-47.0) L 06/20/24 07:09
Plt Count 348 10^3/uL (130-400) 06/20/24 07:09
Sodium 134 mmol/L (135-145) L 06/21/24 07:40
Potassium 3.9 mmol/L (3.5-5.1) 06/21/24 07:40
Chloride 92 mmol/L (98-107) L 06/21/24 07:40
Carbon Dioxide 37 mmol/L (22-30) H 06/21/24 07:40
BUN 5 mg/dl (7-17) L 06/21/24 07:40
Creatinine 0.5 mg/dL (0.6-1.0) L 06/21/24 07:40
eGFR > 60.00 06/21/24 07:40
Glucose 190 mg/dl (70-99) H 06/21/24 07:40
Calcium 8.9 mg/dl (8.4-10.2) 06/21/24 07:40
Suq-I-Yzpgbmdburr Pept 219 pg/ml 06/08/24 23:58
Albumin 3.0 g/dl (3.5-5.0) L 06/20/24 07:09
Physical Exam
-
Vital Signs:
Vital Signs
Temp Pulse Resp BP Pulse Ox
98.1 F 93 20 122/56 99
06/21/24 15:30 06/21/24 15:30 06/21/24 15:30 06/21/24 15:30 06/21/24 15:30
Cardiovascular:: Regular rate and rhythm
Respiratory:: Bilateral: CTA
Lung Excursion:: Normal
Abdomen:: Nontender and Soft
Extremity Edema:: None: Bilateral:
Reece Catheter: No
[2024-06-21] MEDS: FLOVENT 110 MCG INHALER 2 PUFF INH (20:04)
[2024-06-21 21:14] LABS: Glucose - Point of Care 215 mg/dl (70-99)
[2024-06-21] MEDS: PEPCID 40 MG PO (22:00)
[2024-06-21] MEDS: TESSALON PERLES 200 MG PO (22:06)
[2024-06-21] MEDS: LANTUS 0.04 UNITS SC (22:07)
[2024-06-21 23:19] VITALS: BP 130/100
[2024-06-22 05:08] VITALS: BMI 37.3
[2024-06-22 07:20] VITALS: BP 163/76
[2024-06-22] MEDS: FLOVENT 110 MCG INHALER 2 PUFF INH (07:44)
[2024-06-22 07:55] LABS: Glucose - Point of Care 188 mg/dl (70-99)
[2024-06-22] MEDS: NOVOLOG FLEXPEN-LOW RESISTANCE 1 UNITS SC (08:55)
[2024-06-22] MEDS: LIDOCAINE 4% PATCH 1 PATCH TOPICAL (08:55)
[2024-06-22] MEDS: CYMBALTA DELAYED RELEASE 30 MG PO (08:56)
[2024-06-22] MEDS: LASIX 20 MG PO (08:56)
[2024-06-22] MEDS: LIPITOR 10 MG PO (08:56)
[2024-06-22] MEDS: PROTONIX 40 MG PO (08:56)
[2024-06-22] MEDS: MIRALAX 17 GRAMS PO (08:56)
[2024-06-22] MEDS: ELIQUIS 5 MG PO (08:56)
[2024-06-22] MEDS: OCUVITE SOFTGEL 1 CAP PO (08:56)
[2024-06-22] MEDS: COZAAR 25 MG PO (08:57)
[2024-06-22] MEDS: TOPROL XL 25 MG PO (08:57)
[2024-06-22 09:13] LABS: Blood Urea Nitrogen 7 mg/dl (7-17); Calcium 8.9 mg/dl (8.4-10.2); Carbon Dioxide 33 mmol/L (22-30); Chloride 92 mmol/L (98-107); Estimated Creatinine Clearance 71 ml/min; Glucose 191 mg/dl (70-99); Potassium 3.8 mmol/L (3.5-5.1); Sodium 133 mmol/L (135-145); eGFR > 60.00
[2024-06-22 09:18] VITALS: BP 155/62; PULSE 102; O2SAT 98
--- NOTE | 2024-06-22 09:36 | W.PN.HOSP.TC ---
Today's Communication/Plan
-
Patient to be discharged to SNF today.
Assessment / Plan
Assessment / Plan
Assessment:
Patient is an 84y F with PMH significant for COPD, chronic hypoxemia, DM-II, fibromyalgia and anxiety / depression who presents to ED for evaluation of cough, SOB and fatigue. Patient was found to be somnolent and diagnosed with Acute toxic
metabolic encephalopathy suspected to be secondary to her medications. Patient's sedating medications were held and patient's breathing seemed to have improved.
Plan:
#Acute toxic metabolic encephalopathy
-suspect likely secondary to TME from medications, possible now acute psychosis from steroids and UTI
-Patient is agitated at times; steroids now stopped
-VBG 06/09/24AM 7.36/58/107
-Repeat VBG 06/14/2024 7.40/41/65
-Chest x-ray without pneumonia
-UA suggestive of UTI
-holding sedating meds
-Maintaining good O2 saturation On 2L NC O2
-TSH/B12 within normal range
-hx of CVA;check CT head without CVA.
-Neuro consulted, input appreciated
-MRI (06/17/2024)
1. No MRI evidence for acute infarct.
2. Small chronic lacunar infarcts in the head of the right caudate nucleus and right putamen.
3. Small amount of chronic intraparenchymal hemorrhage in the left putamen.
4. Mild periventricular white matter leukoaraiosis in the frontal and parietal lobes.
5. Mild to moderate diffuse cerebral and cerebellar volume loss.
6. Large amount of central signal abnormality in the david and moderate symmetric signal abnormality in the thalami. OSMOTIC DEMYELINATION SYNDROME is a diagnostic possibility given hyponatremia. Chronic microvascular ischemic disease is an
alternative diagnostic possibility.
-central pontine myelinolysis seems extremely unlikely due to symptoms occurring before sodium correction
-alternative diagnosis is Chronic microvascular ischemic disease
-Speech following, recommended regular diet with thin liquids
-ABG ordered but unable to get sample as of yet
-Sodium improved after dose of SAMSCA. Patient discharged yesterday but no bed was available at SNF. Will be discharged today.
#UTI
-diagnosed via UA
-Completed course ceftriaxone; given sx will treat for 3 days total
-urine cx pending
-15,000 CFU/ML Streptococcus agalactiae*
-Monitor for any further symptoms
#Hyponatremia
-monitor
-Fluid restriction and follow BMP
-Started on PO Lasix 20mg
-Nephrology following, input appreciated
-Sodium continues to trend down, probbale to ADH excess?
-Low dose SAMSCA improved sodium levels. Continue to monitor BMP
#Chronic hypoxemic respiratory failure, on 2 L nasal cannula
-underlying asthma however now does not suspect acute exacerbation
-History of tracheomalacia
-underlying morbid Obesity due to excess calories as well as sedentary lifestyle, very likely
-Continue flovent
-Will follow up with Pulm in outpatient setting
#FAITH/OHS (suspect primary etiology)
-CXR without PNA
-Acapella, IS
-pulm saw in c/s
-Pulmicort and DuoNebs ATC added
-CT chest showed bibasilar atelectasis/scarring. Chronic compression deformity of T7 and T10.
-NC O2 support
-Echo with preserved EF
#Fibromyalgia
#Chronic Pain Syndrome
#Anxiety/Depression
-Continue management as needed
-Holding sedating meds as noted above
-Restarted oxycodone but hasn't required since 06/11
-holding nortriptyline
#Normocytic Anemia
-No evident source of blood loss
-Monitor
#DM2
- HbA1c at 7.1%, continue with Accu-Cheks.
- Insulin Sliding scale. Decrease Lantus
#Paroxysmal Atrial Fibrillation: cont BB/Eliquis
#GERD/PUD: cont PPI
FULL Code
DVT Prophylaxis: Eliquis
Anticipated Discharge: Today
Subjective/Interval History
-
Date of Service: June 22, 2024
Patient asleep and unwilling to awaken when seen this morning. Nurse relayed that she had no adverse events overnight. Scheduled to go to SNF today as no bed was available for her yesterday after discharge.
Objective Data
-
Labs:
Laboratory Results
06/22/24
07:19
Sodium 133 L
Potassium 3.8
Chloride 92 L
Carbon Dioxide 33 H
BUN 7
Creatinine 0.5 L
Glucose 191 H
Calcium 8.9
Vital Signs:
Vital Signs
Temp Pulse Resp BP Pulse Ox
98.1 F 99 16 163/76 99
06/22/24 07:20 06/22/24 08:57 06/22/24 07:47 06/22/24 08:57 06/22/24 07:47
I&O
06/21/24 06/22/24 06/23/24
06:59 06:59 06:59
Intake Total 360 / 360 600 / 600
Balance 360 / 360 600 / 600
Review of Systems
-
Unable to obtain full review of systems at this time due to: Acuity
History Source: Patient
All other systems: Reviewed and negative
Physical Exam
-
General: No Apparent Distress and Comfortable
HEENT: Normocephalic, Atraumatic and Moist Mucous Membranes
Respiratory: Clear to Auscultation and Non Labored Respirations
Cardiac: Regular Rhythm and S1/S2
GI: Soft, Nontender and Nondistended
Musculoskeletal: No Clubbing, No Cyanosis and No Edema
Skin: Warm and Dry
Neuro: Other (Asleep, difficult to wake up)
Data Reviewed
-
Labs: Labs Reviewed by me, Discussed with Physician and Discussed with Nurse
--- NOTE | 2024-06-22 10:29 | W.PN.UPDATE ---
Update Note
Progress Note Update
I saw and evaluated the patient. I reviewed the resident�s note and agree with findings and plan as documented in the resident�s note.
Patient without acute complaints.
Gen: NAD, awake and alert but not oriented, NCAT
Eyes: EOMI, PERRLA, no scleral icterus.
Neck: supple.
CV: RRR, +S1/S2, no m/r/g.
Resp: continues to remain CTAB anteriorly, no rales, wheezes, or rhonchi.
Abd: continues to remain +BS, soft, NT, ND
Skin: No rashes.
Neuro: remains CN 2-12 intact, non-focal, dyskinetic movements.
Psych: Normal mood and affect.
06/15/24 10:26 Urine Urine Culture - Final
06/15/24 01:58 Urine Urine Culture - Final
Streptococcus agalactiae
06/11/24 03:44 Nasal Swab Respiratory Syncytial Virus Culture - Final
Negative for Respiratory Syncytial Virus.
A false negative result may be obtained with a specimen
collected early in the acute phase. If symptoms persist, a
new specimen should be tested.
06/08/24 15:48 Nasal Swab Influenza Types A & B (EUGENIA) - Final
Negative for Influenza A & B, NAAT
Negative results must be combined with clinical observations
and patient history.
Nucleic Acid Amplification test (NAAT)performed on the
[employer] platform.
CXR: Mild elevation of the left hemidiaphragm with left greater than right bibasilar opacities favored to represent chronic atelectasis/scarring.
Echo: Normal left ventricular chamber size. Normal left ventricular systolic function. Normal left ventricular wall thickness. Normal regional wall motion. Left ventricular ejection fraction is 60-65%. Mild to moderate aortic regurgitation. Compared
to the previous echo from Jun 2016, AR was mild at that time.
CT chest: Mild elevation of the left hemidiaphragm with left greater than right bibasilar atelectasis/scarring. No evidence of pneumonia or pulmonary edema. Small hiatal hernia. Chronic compression deformities of the T7 and T10 vertebral bodies
with mild loss of height of the T7 vertebral body and moderate loss of height of the T10 vertebral body.
MRI brain:
1. No MRI evidence for acute infarct.
2. Small chronic lacunar infarcts in the head of the right caudate nucleus and right putamen.
3. Small amount of chronic intraparenchymal hemorrhage in the left putamen.
4. Mild periventricular white matter leukoaraiosis in the frontal and parietal lobes.
5. Mild to moderate diffuse cerebral and cerebellar volume loss.
6. Large amount of central signal abnormality in the david and moderate symmetric signal abnormality in the thalami. OSMOTIC DEMYELINATION SYNDROME is a diagnostic possibility given hyponatremia. Chronic microvascular ischemic disease is an
alternative diagnostic possibility.
Acute toxic metabolic encephalopathy:
-Likely due to adverse effects of medications, possible now acute psychosis from steroids and UTI
-Patient is agitated at times; steroids were stopped
-holding sedating meds
-currently saturating well on 2L NC O2 (baseline O2)
-TSH/B12 normals
-neuro following
-EEG: moderate generalized cerebral dysfunction due to toxic, metabolic, or infectious etiology
-MRI brain findings noted, central pontine myelinolysis seems extremely unlikely considering the patient's Na trend as well as the fact that her change in mental status occurred prior to 3% NS administration
-as per discussion with Dr. Vidales 06/19/24AM pt is medically cleared for d/c from her standpoint. She did recommend checking ABG prior to discharge which was ordered 06/19/24 but respiratory unable to complete despite 2 respiratory therapists trying 2
times each.
Hyponatremia:
-received Samsca, Na now 133
-Lasix 20mg daily started 06/19/24
-renal following
Chronic hypoxemic respiratory failure:
-on 2L nasal cannula at baseline
-h/o tracheomalacia
-underlying asthma however does not have acute exacerbation
-underlying morbid obesity due to excess calories as well as sedentary lifestyle, very likely FAITH/OHS (suspect primary etiology)
-CT chest and echo above, unremarkable
-Acapella, IS
-pulm saw in c/s
-cont flovent
Other problems:
Fibromyalgia, Chronic Pain Syndrome, Anxiety/Depression: cont Cymbalta. Home nortriptyline on hold for acute toxic metabolic encephalopathy as above.
UTI: completed 3 days Rocephin
Normocytic Anemia: No evident source of blood loss, Hb stable
DM2: a1c 7.1%, cont Lantus/SSI/Accu-Cheks
Paroxysmal Atrial Fibrillation: cont BB/Eliquis
GERD/PUD: cont PPI
FULL/Eliquis
Remains medically cleared for d/c since 06/21/24AM, case management aware.
--- NOTE | 2024-06-22 10:39 | CM ---
Additional referrals were sent as preferred facilities do not have any availability.
[facility] willing to accept pt today. Updated clinicals sent via [email or web address]. COVID results pending, will send to facility once made available.
Auth approved beginning today, 06/22 next review date 06/26
Auth ref # [id number]. Ambulance auth ref # [id number]
Ambulance forms faxed to [address] [place] [address] clerk to arrange transport. 2 pm requesting time
IMM reviewed, copy on chart
[facility]
Report: [phone]

Plan: [facility] SN[facility] via ambulance. 2 pm requested time
[2024-06-22 11:54] VITALS: BP 131/79
[2024-06-22 11:58] LABS: COVID-19 Antigen Negative (Negative)
[2024-06-22 12:11] LABS: Glucose - Point of Care 208 mg/dl (70-99)
--- NOTE | 2024-06-22 12:21 | PTCARENOTE ---
Called [facility] for report and was placed on hold for 5 minutes. Will call back.
[2024-06-22] MEDS: NOVOLOG FLEXPEN-LOW RESISTANCE SC (12:43)
--- NOTE | 2024-06-22 14:11 | W.PN.NEPH.PH ---
Today's Communication / Plan
-
DC on fluid restriction and Lasix
Assessment/Plan
-
Impression:
Acute hypoxic respiratory insufficiency
chronic home oxygen
Mental status change
asthma
COPD
Hyponatremia
Diabetes mellitus type II
Fibromyalgia
GERD/PUD
Anemia
Paroxysmal atrial fibrillation
Plan/recommendations
She has excess ADH.
sodium up at 133 s/p samsca
note she is on high dose of Duloxetine too-dose lowered as sodium seem to difficult to maintain
cont 20 mg of Lasix daily with FR
MS seem baseline
BP stable
encourage solute intake
follow bladder scan while bladder stimulator turned off
For discharge today with follow-up BMP to PCP Tuesday
-
-
Date of Service: June 22, 2024
CC / HPI / ROS
-
Chief Complaint:
hyponatremia
History of Present Illness:
sodium up at 133
Bp stable
UOP not measured
wt decreasing
Review of Systems:
no c/o cp or sob
no n/v,
feels well
Labs
-
Labs:
WBC 8.7 10^3/uL (4.8-10.8) 06/20/24 07:09
RBC 4.10 10^6/uL (4.20-5.40) L 06/20/24 07:09
Hgb 11.9 g/dL (12.0-16.0) L 06/20/24 07:09
Hct 35.6 % (37.0-47.0) L 06/20/24 07:09
Plt Count 348 10^3/uL (130-400) 06/20/24 07:09
Sodium 133 mmol/L (135-145) L 06/22/24 07:19
Potassium 3.8 mmol/L (3.5-5.1) 06/22/24 07:19
Chloride 92 mmol/L (98-107) L 06/22/24 07:19
Carbon Dioxide 33 mmol/L (22-30) H 06/22/24 07:19
BUN 7 mg/dl (7-17) 06/22/24 07:19
Creatinine 0.5 mg/dL (0.6-1.0) L 06/22/24 07:19
eGFR > 60.00 06/22/24 07:19
Glucose 191 mg/dl (70-99) H 06/22/24 07:19
Calcium 8.9 mg/dl (8.4-10.2) 06/22/24 07:19
Ryy-J-Imekjrjfmbm Pept 219 pg/ml 06/08/24 23:58
Albumin 3.0 g/dl (3.5-5.0) L 06/20/24 07:09
Physical Exam
-
Vital Signs:
Vital Signs
Temp Pulse Resp BP Pulse Ox
98.1 F 98 18 131/79 97
06/22/24 11:54 06/22/24 11:54 06/22/24 11:54 06/22/24 11:54 06/22/24 11:54
Cardiovascular:: Regular rate and rhythm
Respiratory:: Bilateral: CTA
Lung Excursion:: Normal
Abdomen:: Nontender and Soft
Extremity Edema:: None: Bilateral:
Reece Catheter: No
== END 2024-06-22 15:21 | DRG 92 ==
LOC: 4 EAST ACU 01:07
PROVIDERS: Clinical Nurse Specialist Family Health; Emergency Medicine; Internal Medicine; Psychiatry & Neurology Neurology; ADMITTING PHYSICIAN Hospitalist; ATTENDING PHYSICIAN Internal Medicine; CONSULT PHYSICIAN Internal Medicine Critical Care Medicine; CONSULT PHYSICIAN Psychiatry & Neurology Clinical Neurophysiology; CONSULT PHYSICIAN Specialist; EMERGENCY PHYSICIAN Emergency Medicine; FAMILY PHYSICIAN Family Medicine
DX: G92.8 Other toxic encephalopathy (principal); E66.2 Morbid (severe) obesity with alveolar hypoventilation; E87.1 Hypo-osmolality and hyponatremia; J96.11 Chronic respiratory failure with hypoxia; G37.2 Central pontine myelinolysis; N39.0 Urinary tract infection, site not specified; Z68.41 Body mass index [BMI] 40.0-44.9, adult; T42.6X5A Adverse effect of other antiepileptic and sedative-hypnotic drugs, initial encounter; E11.40 Type 2 diabetes mellitus with diabetic neuropathy, unspecified; E21.3 Hyperparathyroidism, unspecified; E78.00 Pure hypercholesterolemia, unspecified; F32.A Depression, unspecified; F41.9 Anxiety disorder, unspecified; I10 Essential (primary) hypertension; I48.0 Paroxysmal atrial fibrillation; M81.0 Age-related osteoporosis without current pathological fracture; J44.89 Other specified chronic obstructive pulmonary disease; D64.9 Anemia, unspecified; R45.1 Restlessness and agitation; T38.0X5A Adverse effect of glucocorticoids and synthetic analogues, initial encounter; K21.9 Gastro-esophageal reflux disease without esophagitis; K22.70 Barrett's esophagus without dysplasia; G89.4 Chronic pain syndrome; M79.7 Fibromyalgia; B95.1 Streptococcus, group B, as the cause of diseases classified elsewhere; Z99.81 Dependence on supplemental oxygen; Z86.711 Personal history of pulmonary embolism; Z91.199 Patient's noncompliance with other medical treatment and regimen due to unspecified reason; Z91.041 Radiographic dye allergy status; Z88.5 Allergy status to narcotic agent; Z88.1 Allergy status to other antibiotic agents; Z79.4 Long term (current) use of insulin; Z79.01 Long term (current) use of anticoagulants; Z79.899 Other long term (current) drug therapy; Z86.73 Personal history of transient ischemic attack (TIA), and cerebral infarction without residual deficits; Z11.52 Encounter for screening for COVID-19
CPT/HCPCS: 51701; 70450; 70551; 71045; 71046; 71250; 80048; 80053; 81003; 81015; 82140; 82550; 82607; 82805; 82962; 83036; 83540; 83550; 83880; 83930; 83935; 84300; 84443; 84484; 85025; 85027; 87077; 87086; 87147; 87502; 87807; 87811; 92523; 92526; 92610; 93005; 93306; 94640; 94669; 94762; 95816; 97110; 97162; 97166; 97530; 99285; Q9950

== ENCOUNTER → 2024-11-14 15:23 | Outpatient (REF) | payer OTHER, SELFPAY | LOC: WDC 15:23 | PROVIDERS: ATTENDING PHYSICIAN Family Medicine; FAMILY PHYSICIAN Physician Assistant | DX: N98.8 Other complications associated with artificial fertilization (principal); Z78.0 Asymptomatic menopausal state; M81.0 Age-related osteoporosis without current pathological fracture; Z12.31 Encounter for screening mammogram for malignant neoplasm of breast | CPT/HCPCS: 77063; 77067; 77080 ==

== ENCOUNTER 2025-03-18 12:48 | Emergency (ER) | payer OTHER, SELFPAY ==
[2025-03-18 12:51] VITALS: BP 123/85
[2025-03-18 15:28] LABS: INR 3.05; PT 31.4 Sec (11.4-14.6)
--- NOTE | 2025-03-18 16:55 | ED.SKININJ ---
HPI-Injury
General
Chief Complaint: Skin Problem
Source: patient
Exam Limitations: none
Time Seen by Provider: 03/18/25 14:03
Nursing documentation reviewed up to this point in time: agreed with
History of Present Illness-Injury
Is this injury a work related problem?: No
Is pt an associate of [facility]?: No
Initial Injury comments:
Patient states she dropped a box on her leg. Sustained a small laceration to right lower leg. SHe is taking coumadin and has been unable to stop the bleeding from her leg wound. Injuryo ccurred last PM. She was evaluated at and advised to
come to ED.
Past History
Past History
ED Past Medical History: Asthma, Fibromyalgia, GERD, HTN, Hypercholesterolemia, IDDM, Other (Migraines, Dizziness, Numbness in arms and legs, TIA, PNA, Bowel obstruction, GI bleeding, Hiatal hernia, IBS, Intussuseption, Ovarian cyst, Renal calculus,
UTI, ) and Other (Diverticulitis, SBO, Vertebral Fx. Stenosis, Chronic back pain, dizziness, diabetic neuropathy, edema, productive cough, constipation, diarrhea, irritable bowel, intussusception, ovarian cysts, kidney stones, stress incontinence,
anxiety, depression)
ED Past Surgical History: Appendectomy, Bowel resection (Small bowel resection), Cholecystectomy, Gynecological (Hysterectomy), Orthopedic (Back surgery lumbar spine in November 2009, Right elbow surgery, ORIF right ankle), Urological (Right ureteral
stent, ) and Other ( Parathyroid surgery, Cataracts, Adhesion)
Social History
Tobacco: Non-smoker
Alcohol: None
Drug: None
Personal:
Living: with family
Employment: Retired
Family History
Family History: Hypertension
Skin Exam
Laceration
Right Lower Anterior Leg:
Length in cm: 1
Orientation: vertical
Type of Laceration: simple
Any active bleeding?: low grade venous oozing
Distal skin color and temperature: normal-warm & good color
Normal distal neurovascular exam: Yes
Range of motion: full
Phy Exam
General Physical Exam
General Presentation: well appearing and no apparent distress
General age: appears stated age
General Skin: warm and dry
General Habitus: normal
Musculoskeletal Exam
Musculoskeletal Exam: full ROM and neuro vasc intact
Skin Exam
Skin Exam: normal color, warm/dry and no rash
Psychiatric Exam
Psychiatric Exam: normal mood/affect
Course
Orders/Labs/Results
Orders:
Orders
03/18/25 15:11
Prothrombin Time Urgent
Abnormal Lab Results
03/18/25
15:11
PT 31.4 H Sec
(11.4-14.6)
Vital Signs
Initial and Last Documented VS:
Initial Vital Signs
Temp Pulse Resp BP Pulse Ox
98.0 F 87 20 123/85 97
03/18/25 12:51 03/18/25 12:51 03/18/25 12:51 03/18/25 12:51 03/18/25 12:51
Last Documented Vital Signs
Temp Pulse Resp BP Pulse Ox
98.0 F 87 20 123/85 97
03/18/25 12:51 03/18/25 12:51 03/18/25 12:51 03/18/25 12:51 03/18/25 12:51
Procedures
Laceration Closure
Right Lower Anterior Leg:
Status of Wound: clean
Description of Wound Edges: sharp
Preparation: cleaned with saline
Anesthesia: 1% Lidocaine with epi
Revision/Debridement: routine- no revision
Wound exploration: explored to base- no FB
Type of Closure: single layer closure
Skin Closure Material: 4-0 prolene
*Pulse Oximetry
SaO2: 97
Oxygen Mode of Delivery: Room air
Patient hypoxic: no
*Critical Care Note
Total Time (30-74mins, 75-104mins- exclusive of procedures): Not Applicable
Update Note
Update Note:
INR 3.0. SHe was instructed to hold her coumadin dose tonight. SHe will contact her provider in the AM regarding restarting med and any dose change. She was given instructions on s/s to return to ED and she is agreeable to plan.
ED Attending Note
-
Portions of this chart may have been created with voice recognition software.� Occasional wrong word or��sound alike� substitutions may have occurred due to the inherent limitations of voice recognition software.
Discharge Plan
Departure
Patient Disposition: Home (Routine Discharge)
Date of Disposition: 03/18/25
Time of Disposition: 16:24
Patient with high blood pressure during this ER visit?: No
Condition: Good
Covid-19: Not Applicable
Discharge Problem:
Laceration
Instructions: Stitches and jaleesa
Prescriptions:
No Action
Fish Oil 1 EACH capsule,delayed release(DR/EC)
1,200 mg PO DAILY
PreserVision AREDS 1 CAP capsule
1 cap PO BID
pantoprazole 40 MG tablet,delayed release (DR/EC)
40 mg PO DAILY
atorvastatin 10 MG tablet
10 mg PO DAILY
dicyclomine 10 MG capsule
10 mg PO BIDPRN PRN (Reason: cramping)
montelukast 10 mg Tablet
10 mg PO HS
albuterol sulfate [Ventolin HFA] 90 mcg/actuation Hfa Aerosol Inhaler
2 puff INHALATION R Q6HPRN PRN (Reason: SOB)
benzonatate 200 mg Capsule
200 mg PO TID
docusate sodium [Colace] 100 mg Capsule
100 mg PO NOON
cholecalciferol (vitamin D3) [Vitamin D3] 50 mcg (2,000 unit) Tablet
50 mcg PO DAILY
ipratropium-albuterol 0.5 mg-3 mg(2.5 mg base)/3 mL Solution For Nebulization
3 ml INHALATION R TIDPRN PRN (Reason: sob)
famotidine 40 mg Tablet
40 mg PO HS
psyllium Packet
1 packet PO DAILY
lidocaine 4 % Cream
1 applic TOPICAL BID
calcium carbonate [Calcium 600] 600 mg calcium (1,500 mg) Tablet
600 mg PO BID
losartan 25 mg Tablet
25 mg PO DAILY
metoprolol succinate 25 mg Tablet Extended Release 24 Hr
25 mg PO DAILY
nystatin 100,000 unit/gram Powder
1 applic TOPICAL BID
fluticasone propionate 50 mcg/actuation [place],Suspension
1 spray INTRANASAL HS
Eliquis 5 mg Tablet
5 mg PO BID
Arnuity Ellipta 200 mcg/actuation Blister With Device
1 inh INHALATION R HS
furosemide 20 mg Tablet
20 mg PO DAILY 30 Days Qty: 0 0RF
duloxetine 30 mg Capsule,Delayed Release(Dr/Ec)
30 mg PO BID 30 Days Qty: 0 0RF
polyethylene glycol 3350 17 gram Powder In Packet
17 g PO DAILY Qty: 0 0RF
Insulin Glargine Lantus [Lantus] 4 UNITS
Subcutaneous Insulin Syringe [Syringe-Insulin] 0 UNIT
As Directed mls/hr SC HS
Ordered By: Adam Taylor MD
Last Taken: Unknown
Referrals:
Akshat Schaefer DO [Family Provider, Family Practice]
Referral Note: Sutures can be removed in 7-10 days
Activity Restrictions/Additional Instructions:
Hold your coumadin tonight.
Interventions
Interventions:
*Risk Screen - Suicide Last Done: 03/18/25 15:13
*General Assessment Last Done: 03/18/25 12:51
*Neglect/Abuse Screening Last Done: 03/18/25 15:13
*ED- Fall Risk Assessment Last Done: 03/18/25 15:13
*ED COVID-19 Vaccine History Last Done: 03/18/25 15:13
*ED Influenza Vaccine History Last Done: 03/18/25 15:13
*Nursing Disposition Last Done: 03/18/25 16:56
ED-Skin Assessment Last Done: 03/18/25 14:23
Discharge Date and Time
Print Language: BRUNEIAN
== END 2025-03-18 16:58 | disposition home or self-care (01) ==
LOC: EMR 12:48
PROVIDERS: Nurse Practitioner; EMERGENCY PHYSICIAN Student in an Organized Health Care Education/Training Program; FAMILY PHYSICIAN Family Medicine
DX: S81.811A Laceration without foreign body, right lower leg, initial encounter (principal); W20.8XXA Other cause of strike by thrown, projected or falling object, initial encounter; E11.40 Type 2 diabetes mellitus with diabetic neuropathy, unspecified; J45.909 Unspecified asthma, uncomplicated; M79.7 Fibromyalgia; Z86.73 Personal history of transient ischemic attack (TIA), and cerebral infarction without residual deficits; E78.00 Pure hypercholesterolemia, unspecified; I10 Essential (primary) hypertension; Z79.01 Long term (current) use of anticoagulants
CPT/HCPCS: 12001; 99283; 85610